=== PATIENT | female | born 1975 | race Caucasian/White ===

== ENCOUNTER 2018-03-23 10:22 | Emergency (ER) | payer BC ==
--- OUTSIDE RECORDS SUMMARY | 2018-03-23 10:51 | XMS REPORT ---
:1975 External Reference #:[id number] Author Organization [facility] Address [address] [place] [address] [place] [address] Phone [phone] Care Team Providers Name Role Phone Connie Yeboah MD Primary Care Physician Unavailable Payers Type Date Identification Numbers Payment Provider Subscriber Commercial Effective: Policy Number: [id number] [facility] Cristina Charles 2012 PayID: [id number] [address] [place] [address] Problems Date Description Provider Status Onset: 07/27/2014 Palpitations Blayne Dominguez M.D., [facility], Active [facility] Onset: 07/27/2014 Paroxysmal supraventricular Blayne Dominguez M.D., [facility], Active tachycardia [facility] Onset: 12/14/2014 Arthralgia of the ankle and/or Gabe Blayne Celis M.D. Active foot Onset: 12/14/2014 Sprain of ankle Gabe Blayne Celis M.D. Active Onset: 01/29/2015 Multiple joint pain Joel Garcia M.D. Active Onset: 01/29/2015 Rheumatoid arthritis Joel Garcia M.D. Active Onset: 01/29/2015 Immunologic Joel Garcia M.D. Active Onset: 03/22/2015 Taking medication Joel Garcia M.D. Active Onset: 06/01/2016 Irritable bowel syndrome Connie Yeboah M.D. Active Onset: 06/01/2016 Nonulcer dyspepsia Connie Yeboah M.D. 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 ) Cigarette Use Never Smoked Cigarettes ETOH Use consumes 3-4 glasses per week Smoking Patient is a former smoker social smoker in college, none now Exercise Type/Frequency Exercises regularly General Hx Text Allergies, Adverse Reactions, Alerts Date Description Reaction Status Severity Comments 11/13/2012 Penicillin hives active 11/13/2012 Sudafed migraine/tachycardia/co active ld sweats 11/13/2012 Shellfish-derived Products vomiting active Medications Medication Date Status Form Strength Qnty SIG Indications Ordering Provider Duloxetine Active Caps DR 30mg 60caps 1 by mouth F41.9 Hank HCL 018 Part every day TREVON Lopez for one week and then increase to two capsules daily. Systane Ultra Active Solution 0.4-0.3% 8ml 1 drop M35.01 Zsofia 017 each eye Osmel, twice [employer] daily for dry eyes Xeljanz XR Active Tablets ER 11mg 30tabs 1 by mouth M06.09 Zsofia 017 24HR every day Osmel, Start on [employer] 08/27/17 Ranitidine Active Tablets 150mg 60tabs one by K21.9 Hank HCL 017 mouth TREVON Lopez twice a day as needed Héctor Med Active 1units As Hank Sinus 016 directed TREVON Lopez Irrigation Kit Voltaren Active Gel 1% 100gm apply to M25.571 Zsofia 016 affected Osmel, area twice [employer] a day, as needed M25.551 M25.562 Fluticasone 09/23/2015 Active Suspension 50mcg/Act 48units instill Connie Propionate 1 sprays Edilia, into M.D. each nostril once daily Diltiazem HCL ER 06/17/2015 Active Caps ER 24HR 240mg 90caps 1 tab by Connie Coated Beads mouth Edilia, every M.D. day. Hydroxychloroquine 06/01/2015 Active Tablets 200mg 180tabs 2 tabs Z Zsofia Sulfate by mouth 7 Osmel, daily 9 [employer] . 8 9 9 M06.09 Gas Relief Active Capsules as needed Unknown Extra Strength Deblitane Active Tablets 0.35m take 1 tablet Unknown g by mouth once daily Daily Womens Active Tablets 1 daily Unknown Health Formula Vitamin D3 Active Chewtabs 1000U 2 by mouth Unknown Adult Gummies nit every day otc Buspirone HCL 03/07/2018 - Hx Tablets 5mg 60tab 1 by mouth F41.9 Hankjohny Lopez, 03/20/2018 s twice a day. [employer] May increase by 2.5mg bid every 3 days. Do not exceed 15mg bid. Prednisone 08/03/2017 - Hx Tablets 5mg 90tab Not Taking-- M06.0 Zsofia 01/03/2018 s take 4 tabs 9 Osmel, [employer] once dly for 1 wk 3 tabs once dly for 1 week 2 tabs once daily for 1 wk then 1 tab once dly Paroxetine HCL 05/09/2017 - Hx Tablets 40mg 30tab 1 by mouth F41.9 Hank Lopez, 06/19/2017 s every day [employer] F43.23 Simponi Aria 03/15/2017 - Hx Solution 50mg/4ML 4ml 2 mg/kg iv M06.09 Zsofia 08/03/2017 infusion weeks Osmel, [employer] 0 and 4, then every 8 weeks thereafter. Z79.899 Paroxetine HCL 12/29/2016 - Hx Tablets 20mg 30tabs 1 tablet F41.9 Hank John, 05/09/2017 daily [employer] F43.23 Hydroxyzine 12/29/2016 - Hx Capsules 25mg 60caps 1-2 caps by F41.9 Hank Pamoate 06/21/2017 mouth four John, [employer] times a day as needed for anxiety Lidocaine 12/29/2016 - Hx Ointment 5% 35.440gm apply to M89.8x8 Hank 03/07/2018 painful John, [employer] areas three times a day as needed. Doxycycline 12/12/2016 - Hx Capsules 100mg 20caps one tablet Hank Hyclate 12/22/2016 twice daily TREVON Lopez for 10 days. Paroxetine HCL 10/12/2016 - Hx Tablets 20mg 30tabs take 1 tab F41.9 Hank 12/29/2016 daily TREVON Lopez F43.23 Levofloxacin 08/16/2016 - Hx Tablets 500mg 10tabs one by mouth [facility], 08/26/2016 daily for 10 [employer] days Azithromycin 07/27/2016 - Hx Tablets 250mg 6tabs 2 tabs by Hank John, 07/27/2016 mouth every [employer] day x1 day, 1 tab by mouth every day x 4 days Doxycycline 07/27/2016 - Hx Tablets 100mg 2tabs take two [facility], clate 08/16/2016 tablets [employer] once. Prednisone 07/13/2016 - Hx Tablets 5mg 30tabs 2 by mouth M06.0 Zsofia 09/07/2016 every day 9 [facility], [facility] Z79.899 Humira Pen 07/13/2016 - Hx PNKT 40mg/0.8ML 2units inject 40 mg M06.09 Zsofia 03/15/2017 subcutaneously Osmel, every other week [employer] Z79.899 Omeprazole 05/18/2016 - Hx Capsules 20mg 30caps Not Taking R10.9 Mark, 11/27/2016 MD Reuben Omeprazole 02/21/2016 - Hx Capsules DR 40mg 30caps Discontinued R10.9 [place] 11/27/2016 TREVON Lopez Carafate 02/18/2016 - Hx Suspension 1GM/10 420ml 10 milliliters R10.9 [place] 05/25/2016 ML three times TREVON Lopez daily before meals Zantac 75 02/18/2016 - Hx Tablets 75mg 60tabs one tablet bid R10.9 [place] 05/25/2016 prn TREVON Lopez Omeprazole 02/11/2016 - Hx Capsules DR 20mg 30caps 1 by mouth R10.9 [place] 02/21/2016 once daily TREVON Lopez Escitalopram 10/13/2015 - Hx Tablets 20mg 90tabs take 1 tablet F41.9 Yves E. Oxalate 11/27/2016 by mouth every Iram, jim Wright Meclizine HCL 08/20/2015 - Hx Tablets 25mg 30tabs take one R42 Hank 09/22/2015 tablet every 6 Ojhn, [employer] hours as needed for dizziness Escitalopram 07/13/2015 - Hx Tablets 10mg 90tabs 1 by mouth F41.9 Connie Oxalate 10/13/2015 every day Kyle Yeboah Voltaren 06/01/2015 - Hx Gel 1% 1tubes apply to 719.46 Zsofia 07/13/2015 affected area Osmel, twice a day, [employer] as needed Methotrexate 03/22/2015 - Hx Tablets 2.5mg 30tabs 6 tabs 1x per 714.0 Joel 07/13/2015 week (not Endo, taking, M.D. stomach upset) Folic Acid 03/22/2015 - Hx Tablets 1mg 30tabs Not Taking M06.9 Zsofia 11/27/2016 Osmel, [employer] Diclofenac 01/29/2015 - Hx Tablets DR 75mg 60tabs 1 by mouth 719.49 Joel Sodium 03/22/2015 twice a day Kyle Garcia Metoprolol 10/29/2012 - Hx Tablets ER 25mg 180tabs 1 by mouth Blayne Succinate ER 12/13/2014 24HR twice a day Arabella Dominguez., [facility], [facility] Lexapro - Hx 10mg daily Unknown 07/16/2013 Flonase - Hx spray each Unknown 09/23/2015 nostril bid Lexapro - Hx Tablets 20mg 1 po qd Unknown 12/13/2014 Drospirenone-E - Hx Tablets 3-0.03 30tabs 1 by mouth Unknown thinyl 12/13/2014 mg every day Estradiol Advil - Hx Tablets 200mg as needed Unknown 07/13/2015 Cartia XT - Hx Caps ER 24HR 120mg 1 by mouth Unknown 06/17/2015 every day Clonazepam - Hx Tablets 0.5mg 1/2 to 1 tab Unknown 06/01/2015 by mouth twice a day as needed Escitalopram - Hx Tablets 20mg 1 by mouth Unknown Oxalate 07/13/2015 every day Deblitane - Hx Tablets 0.35mg once a day Unknown 12/29/2016 Nexium 24HR - Hx Capsules DR 20mg 1 by mouth Unknown 02/10/2016 every day prn Ranitidine HCL - Hx Tablets 150mg Take 1 Tablet Unknown 12/29/2016 Daily as Needed Medications Administered in Office Medication Date Status Form Strength Qnty SIG Indications Ordering Provider Felice(Adult)Radha Administered Injection Unknown ecified 001 Immunizations CPT Code Status Date Vaccine Lot # [id number] Given 06/21/2017 Influenza Virus Vaccine, Quadrivalent, Split, [id number] Preservative Free [id number] Given 07/24/2016 Influenza Virus Vaccine, Quadrivalent, Split [id number] Virus, [place] Use [id number] Given 07/13/2015 Tdap - Tetanus/Diptheria/Acellular Pertussis [id number] Given 08/25/2010 Tdap - Tetanus/Diptheria/Acellular Pertussis [id number] Refused 07/13/2015 Influenza Virus Vaccine, Quadrivalent, Split, Preservative Free Vital Signs Date Vital Result Comment 03/20/2018 Height 67.75 inches 5'7.75" Weight 154.00 lb Heart Rate 86 /min BP Systolic Sitting 117 mmHg BP Diastolic Sitting 82 mmHg O2 % BldC Oximetry 98 % BMI (Body Mass Index) 23.6 kg/m2 03/07/2018 Height 67.75 inches 5'7.75" Weight 157.25 lb Heart Rate 86 /min BP Systolic 109 mmHg BP Diastolic 73 mmHg Body Temperature 98.3 F O2 % BldC Oximetry 98 % BMI (Body Mass Index) 24.1 kg/m2 01/03/2018 Weight 162.00 lb Heart Rate 83 /min BP Systolic Sitting 110 mmHg BP Diastolic Sitting 78 mmHg O2 % BldC Oximetry 98 % 08/03/2017 Weight 169.00 lb Heart Rate 96 /min BP Systolic Sitting 118 mmHg BP Diastolic Sitting 82 mmHg O2 % BldC Oximetry 96 % 06/21/2017 Weight 169.00 lb Heart Rate 79 /min BP Systolic Sitting 138 mmHg pt a little stressed today BP Diastolic Sitting 98 mmHg pt a little stressed today Pain Level 4 O2 % BldC Oximetry 97 % 06/19/2017 Heart Rate 91 /min BP Systolic 118 mmHg BP Diastolic 80 mmHg Body Temperature 98.7 F O2 % BldC Oximetry 98 % 03/15/2017 Weight 175.38 lb Heart Rate 88 /min BP Systolic 120 mmHg BP Diastolic 80 mmHg O2 % BldC Oximetry 97 % 12/29/2016 Heart Rate 76 /min BP Systolic Sitting 124 mmHg BP Diastolic Sitting 80 mmHg Respiratory Rate 15 /min Body Temperature 98.3 F O2 % BldC Oximetry 98 % 11/27/2016 Heart Rate 82 /min BP Systolic Sitting 142 mmHg BP Diastolic Sitting 82 mmHg Pain Level 5 10/12/2016 Weight 174.00 lb Heart Rate 80 /min BP Systolic Sitting 120 mmHg BP Diastolic Sitting 88 mmHg O2 % BldC Oximetry 98 % 09/07/2016 Heart Rate 86 /min BP Systolic 124 mmHg BP Diastolic 80 mmHg O2 % BldC Oximetry 98 % 07/24/2016 Heart Rate 90 /min BP Systolic Sitting 122 mmHg BP Diastolic Sitting 70 mmHg Respiratory Rate 15 /min Body Temperature 97.9 F O2 % BldC Oximetry 98 % 07/13/2016 Weight 178.25 lb Heart Rate 42 /min BP Systolic Sitting 124 mmHg BP Diastolic Sitting 80 mmHg O2 % BldC Oximetry 98 % 05/25/2016 Heart Rate 81 /min BP Systolic Sitting 118 mmHg BP Diastolic Sitting 86 mmHg Pain Level 4 O2 % BldC Oximetry 98 % 02/18/2016 Heart Rate 81 /min BP Systolic Sitting 122 mmHg BP Diastolic Sitting 80 mmHg Body Temperature 98.4 F O2 % BldC Oximetry 98 % 02/11/2016 Height 67.5 inches 5'7.50" Heart Rate 78 /min BP Systolic Sitting 110 mmHg BP Diastolic Sitting 60 mmHg Respiratory Rate 15 /min Body Temperature 98.8 F O2 % BldC Oximetry 98 % 02/08/2016 Height 67.5 inches 5'7.50" Weight 178.50 lb without shoes Heart Rate 70 /min BP Systolic Sitting 126 mmHg LA reg cuff BP Diastolic Sitting 88 mmHg LA reg cuff BP Systolic Standing 122 mmHg LA reg cuff BP Diastolic Standing 94 mmHg LA reg cuff BMI (Body Mass Index) 27.5 kg/m2 Ejection Fraction 58% 08/07/12 echo 10/13/2015 Height 67.5 inches 5'7.50" Heart Rate 87 /min BP Systolic Sitting 120 mmHg BP Diastolic Sitting 82 mmHg O2 % BldC Oximetry 97 % 09/22/2015 Height 67.5 inches 5'7.50" Weight 178.75 lb Heart Rate 76 /min BP Systolic Sitting 128 mmHg BP Diastolic Sitting 82 mmHg Body Temperature 97.4 F O2 % BldC Oximetry 94 % BMI (Body Mass Index) 27.6 kg/m2 08/20/2015 Height 67.5 inches 5'7.50" Heart Rate 67 /min BP Systolic 138 mmHg P66 BP Diastolic 90 mmHg P66 BP Systolic Sitting 122 mmHg BP Diastolic Sitting 80 mmHg BP Systolic Standing 131 mmHg P70 BP Diastolic Standing 88 mmHg P70 BP Systolic Lying Down 138 mmHg P65 BP Diastolic Lying Down 92 mmHg P65 Body Temperature 97.4 F O2 % BldC Oximetry 98 % 07/13/2015 Height 67.5 inches 5'7.50" Weight 176.00 lb Heart Rate 92 /min BP Systolic Sitting 119 mmHg BP Diastolic Sitting 78 mmHg Body Temperature 97.8 F BMI (Body Mass Index) 27.2 kg/m2 06/01/2015 Height 67.5 inches 5'7.50" Weight 176.25 lb Heart Rate 76 /min BP Systolic Sitting 140 mmHg BP Diastolic Sitting 120 mmHg BP Systolic Recheck 130 mmHg BP Diastolic Recheck 100 mmHg Respiratory Rate 14 /min Pain Level 7 BMI (Body Mass Index) 27.2 kg/m2 03/22/2015 Height 67.5 inches 5'7.50" Weight 177.38 lb Heart Rate 72 /min BP Systolic Sitting 118 mmHg BP Diastolic Sitting 70 mmHg Respiratory Rate 14 /min Pain Level 6 BMI (Body Mass Index) 27.4 kg/m2 02/11/2015 Height 67.5 inches 5'7.50" Weight 177.00 lb Heart Rate 80 /min 86 BP Systolic Sitting 130 mmHg left arm, reg cuff BP Diastolic Sitting 94 mmHg left arm, reg cuff BP Systolic Standing 128 mmHg left arm, reg cuff BP Diastolic Standing 94 mmHg left arm, reg cuff Respiratory Rate 20 /min BMI (Body Mass Index) 27.3 kg/m2 Ejection Fraction 58% 08/07/12 01/29/2015 Height 67.5 inches 5'7.50" Weight 181.38 lb Heart Rate 80 /min BP Systolic Sitting 110 mmHg BP Diastolic Sitting 70 mmHg Pain Level 5 BMI (Body Mass Index) 28.0 kg/m2 12/14/2014 Height 68 inches 5'8" Weight 165.00 lb Heart Rate 78 /min BP Systolic 138 mmHg BP Diastolic 99 mmHg BMI (Body Mass Index) 25.1 kg/m2 07/27/2014 Height 68 inches 5'8" Weight 176.00 lb Heart Rate 72 /min 76 BP Systolic Sitting 122 mmHg left arm, reg cuff BP Diastolic Sitting 88 mmHg left arm, reg cuff BP Systolic Standing 118 mmHg left arm, reg cuff BP Diastolic Standing 88 mmHg left arm, reg cuff Respiratory Rate 20 /min BMI (Body Mass Index) 26.8 kg/m2 07/16/2013 Height 68 inches 5'8" Weight 167.00 lb Heart Rate 7484 /min BP Systolic Sitting 110 mmHg left arm, reg cuff BP Diastolic Sitting 70 mmHg left arm, reg cuff BP Systolic Standing 108 mmHg left arm, reg cuff BP Diastolic Standing 70 mmHg left arm, reg cuff Respiratory Rate 20 /min BMI (Body Mass Index) 25.4 kg/m2 Results Test Date Test Result H/L Range Note Comp Metabolic Panel 03/08/2018 Sodium 136 mmol/L Low 139-145 Potassium 3.7 mmol/L 3.5-5.0 Chloride 103 mmol/L 101-111 Co2 Carbon Dioxide 25 mmol/L 22-32 Anion Gap 8 mmol/L 2-11 Glucose 96 mg/dL 70-100 Blood Urea Nitrogen 11 mg/dL 6-24 Creatinine 0.73 mg/dL 0.51-0.95 BUN/Creatinine Ratio 15.1 8-20 Calcium 9.5 mg/dL 8.6-10.3 Total Protein 6.3 g/dL Low 6.4-8.9 Albumin 4.1 g/dL 3.2-5.2 Globulin 2.2 g/dL 2-4 Albumin/Globulin Ratio 1.9 1-3 Total Bilirubin 0.60 mg/dL 0.2-1.0 Alkaline Phosphatase 44 U/L 34-104 Alt 22 U/L 7-52 Ast 23 U/L 13-39 Egfr Non- 87.4 >60 Egfr 112.4 >60 1 Laboratory test finding 03/08/2018 Magnesium 1.9 mg/dL 1.9-2.7 TSH (Thyroid Stim Horm) 1.93 mcIU/mL 0.34-5.60 CBC Auto Diff 03/08/2018 White Blood Count 7.3 10^3/uL 3.5-10.8 Red Blood Count 4.41 10^6/uL 4.0-5.4 Hemoglobin 13.5 g/dL 12.0-16.0 Hematocrit 40 % 35-47 Mean Corpuscular Volume 92 fL 80-97 Mean Corpuscular Hemoglobin 31 pg 27-31 Mean Corpuscular HGB Conc 33 g/dL 31-36 Red Cell Distribution Width 14 % 10.5-15 Platelet Count 223 10^3/uL 150-450 Mean Platelet Volume 9.9 um3 7.4-10.4 Abs Neutrophils 4.6 10^3/uL 1.5-7.7 Abs Lymphocytes 1.7 10^3/uL 1.0-4.8 Abs Monocytes 0.8 10^3/uL 0-0.8 Abs Eosinophils 0.1 10^3/uL 0-0.6 Abs Basophils 0 10^3/uL 0-0.2 Abs Nucleated RBC 0 10^3/uL Granulocyte % 63.4 % 38-83 Lymphocyte % 23.6 % Low 25-47 Monocyte % 11.4 % High 0-7 Eosinophil % 0.9 % 0-6 Basophil % 0.7 % 0-2 Nucleated Red Blood Cells % 0.1 Laboratory test finding 03/08/2018 Lyme Disease Serology Negative Negative 2 Vitamin B12 1025 pg/mL High 180-914 3 CBC Auto Diff 01/01/2018 White Blood Count 6.3 10^3/uL 3.5-10.8 Red Blood Count 4.34 10^6/uL 4.0-5.4 Hemoglobin 13.4 g/dL 12.0-16.0 Hematocrit 41 % 35-47 Mean Corpuscular Volume 93 fL 80-97 Mean Corpuscular Hemoglobin 31 pg 27-31 Mean Corpuscular HGB Conc 33 g/dL 31-36 Red Cell Distribution Width 13 % 10.5-15 Platelet Count 226 10^3/uL 150-450 Mean Platelet Volume 9.2 um3 7.4-10.4 Abs Neutrophils 3.5 10^3/uL 1.5-7.7 Abs Lymphocytes 1.9 10^3/uL 1.0-4.8 Abs Monocytes 0.7 10^3/uL 0-0.8 Abs Eosinophils 0.1 10^3/uL 0-0.6 Abs Basophils 0.1 10^3/uL 0-0.2 Abs Nucleated RBC 0 10^3/uL Granulocyte % 56.0 % 38-83 Lymphocyte % 30.4 % 25-47 Monocyte % 11.1 % High 0-7 Eosinophil % 1.5 % 0-6 Basophil % 1.0 % 0-2 Nucleated Red Blood Cells % 0 Comp Metabolic Panel 01/01/2018 Sodium 138 mmol/L Low 139-145 Potassium 4.0 mmol/L 3.5-5.0 Chloride 105 mmol/L 101-111 Co2 Carbon Dioxide 25 mmol/L 22-32 Anion Gap 8 mmol/L 2-11 Glucose 92 mg/dL 70-100 Blood Urea Nitrogen 13 mg/dL 6-24 Creatinine 0.83 mg/dL 0.51-0.95 BUN/Creatinine Ratio 15.7 8-20 Calcium 9.3 mg/dL 8.6-10.3 Total Protein 6.6 g/dL 6.4-8.9 Albumin 4.2 g/dL 3.2-5.2 Globulin 2.4 g/dL 2-4 Albumin/Globulin Ratio 1.8 1-3 Total Bilirubin 0.60 mg/dL 0.2-1.0 Alkaline Phosphatase 41 U/L 34-104 Alt 20 U/L 7-52 Ast 20 U/L 13-39 Egfr Non- 75.4 >60 Egfr 97.0 >60 4 Laboratory test finding 01/01/2018 Erythrocyte Sed Rate 2 mm/Hr 0-14 C Reactive Protein < 1.00 mg/L < 5.00 5 Lipid Profile (Trig/Chol/HDL) 01/01/2018 Triglycerides 74 mg/dL 6 Cholesterol 171 mg/dL 7 HDL Cholesterol 76.1 mg/dL 8 LDL Cholesterol 80 mg/dL 9 Laboratory test finding 12/27/2017 Surgical Pathology SEE RESULT BELOW 10 Laboratory test finding 12/06/2017 Cytology SEE RESULT BELOW 11 CBC Auto Diff 06/27/2017 White Blood Count 6.5 10^3/uL 3.5-10.8 Red Blood Count 4.51 10^6/uL 4.0-5.4 Hemoglobin 13.6 g/dL 12.0-16.0 Hematocrit 41 % 35-47 Mean Corpuscular Volume 91 fL 80-97 Mean Corpuscular Hemoglobin 30 pg 27-31 Mean Corpuscular HGB Conc 33 g/dL 31-36 Red Cell Distribution Width 13 % 10.5-15 Platelet Count 224 10^3/uL 150-450 Mean Platelet Volume 9 um3 7.4-10.4 Abs Neutrophils 3.0 10^3/uL 1.5-7.7 Abs Lymphocytes 2.5 10^3/uL 1.0-4.8 Abs Monocytes 0.8 10^3/uL 0-0.8 Abs Eosinophils 0.2 10^3/uL 0-0.6 Abs Basophils 0 10^3/uL 0-0.2 Abs Nucleated RBC 0 10^3/uL Granulocyte % 46.9 % 38-83 Lymphocyte % 38.2 % 25-47 Monocyte % 11.9 % High 1-9 Eosinophil % 2.4 % 0-6 Basophil % 0.6 % 0-2 Nucleated Red Blood Cells % 0.1 Laboratory test finding 06/27/2017 Erythrocyte Sed Rate 10 mm/Hr 0-14 Comp Metabolic Panel 06/27/2017 Sodium 135 mmol/L 133-145 Potassium 3.8 mmol/L 3.5-5.0 Chloride 104 mmol/L 101-111 Co2 Carbon Dioxide 27 mmol/L 22-32 Anion Gap 4 mmol/L 2-11 Glucose 86 mg/dL 70-100 Blood Urea Nitrogen 12 mg/dL 6-24 Creatinine 0.67 mg/dL 0.51-0.95 BUN/Creatinine Ratio 17.9 8-20 Calcium 9.1 mg/dL 8.6-10.3 Total Protein 6.6 g/dL 6.4-8.9 Albumin 3.9 g/dL 3.2-5.2 Globulin 2.7 g/dL 2-4 Albumin/Globulin Ratio 1.4 1-3 Total Bilirubin 0.60 mg/dL 0.2-1.0 Alkaline Phosphatase 54 U/L 34-104 Alt 23 U/L 7-52 Ast 24 U/L 13-39 Egfr Non- 97.0 >60 Egfr 124.7 >60 12 Laboratory test finding 06/27/2017 C Reactive Protein 8.73 mg/L High < 5.00 13 Comp Metabolic Panel 05/02/2017 Sodium 135 mmol/L 133-145 Potassium 3.7 mmol/L 3.5-5.0 Chloride 104 mmol/L 101-111 Co2 Carbon Dioxide 25 mmol/L 22-32 Anion Gap 6 mmol/L 2-11 Glucose 107 mg/dL High 70-100 Blood Urea Nitrogen 13 mg/dL 6-24 Creatinine 0.73 mg/dL 0.51-0.95 BUN/Creatinine Ratio 17.8 8-20 Calcium 9.1 mg/dL 8.6-10.3 Total Protein 6.8 g/dL 6.4-8.9 Albumin 4.0 g/dL 3.2-5.2 Globulin 2.8 g/dL 2-4 Albumin/Globulin Ratio 1.4 1-3 Total Bilirubin 0.70 mg/dL 0.2-1.0 Alkaline Phosphatase 62 U/L 34-104 Alt 35 U/L 7-52 Ast 34 U/L 13-39 Egfr Non- 87.9 >60 Egfr 113.0 >60 14 Laboratory test finding 05/02/2017 C Reactive Protein 8.75 mg/L High < 5.00 15 CBC Auto Diff 05/02/2017 White Blood Count 7.9 10^3/uL 3.5-10.8 Red Blood Count 4.68 10^6/uL 4.0-5.4 Hemoglobin 14.3 g/dL 12.0-16.0 Hematocrit 43 % 35-47 Mean Corpuscular Volume 92 fL 80-97 Mean Corpuscular Hemoglobin 31 pg 27-31 Mean Corpuscular HGB Conc 33 g/dL 31-36 Red Cell Distribution Width 14 % 10.5-15 Platelet Count 216 10^3/uL 150-450 Mean Platelet Volume 10 um3 7.4-10.4 Abs Neutrophils 4.5 10^3/uL 1.5-7.7 Abs Lymphocytes 2.4 10^3/uL 1.0-4.8 Abs Monocytes 0.8 10^3/uL 0-0.8 Abs Eosinophils 0.2 10^3/uL 0-0.6 Abs Basophils 0 10^3/uL 0-0.2 Abs Nucleated RBC 0 10^3/uL Granulocyte % 57.7 % 38-83 Lymphocyte % 30.1 % 25-47 Monocyte % 9.5 % High 1-9 Eosinophil % 2.4 % 0-6 Basophil % 0.3 % 0-2 Nucleated Red Blood Cells % 0 Laboratory test finding 05/02/2017 Erythrocyte Sed Rate 9 mm/Hr 0-14 Comp Metabolic Panel 04/04/2017 Sodium 135 mmol/L 133-145 Potassium 3.6 mmol/L 3.5-5.0 Chloride 104 mmol/L 101-111 Co2 Carbon Dioxide 23 mmol/L 22-32 Anion Gap 8 mmol/L 2-11 Glucose 100 mg/dL 70-100 Blood Urea Nitrogen 14 mg/dL 6-24 Creatinine 0.68 mg/dL 0.51-0.95 BUN/Creatinine Ratio 20.6 High 8-20 Calcium 8.8 mg/dL 8.6-10.3 Total Protein 6.5 g/dL 6.4-8.9 Albumin 3.8 g/dL 3.2-5.2 Globulin 2.7 g/dL 2-4 Albumin/Globulin Ratio 1.4 1-3 Total Bilirubin 0.40 mg/dL 0.2-1.0 Alkaline Phosphatase 56 U/L 34-104 Alt 23 U/L 7-52 Ast 28 U/L 13-39 Egfr Non- 95.4 >60 Egfr 122.6 >60 16 Laboratory test finding 04/04/2017 C Reactive Protein 5.60 mg/L High < 5.00 17 CBC Auto Diff 04/04/2017 White Blood Count 7.9 10^3/uL 3.5-10.8 Red Blood Count 4.50 10^6/uL 4.0-5.4 Hemoglobin 13.8 g/dL 12.0-16.0 Hematocrit 42 % 35-47 Mean Corpuscular Volume 94 fL 80-97 Mean Corpuscular Hemoglobin 31 pg 27-31 Mean Corpuscular HGB Conc 33 g/dL 31-36 Red Cell Distribution Width 14 % 10.5-15 Platelet Count 236 10^3/uL 150-450 Mean Platelet Volume 10 um3 7.4-10.4 Abs Neutrophils 4.9 10^3/uL 1.5-7.7 Abs Lymphocytes 2.2 10^3/uL 1.0-4.8 Abs Monocytes 0.7 10^3/uL 0-0.8 Abs Eosinophils 0.1 10^3/uL 0-0.6 Abs Basophils 0.1 10^3/uL 0-0.2 Abs Nucleated RBC 0 10^3/uL Granulocyte % 61.1 % 38-83 Lymphocyte % 27.2 % 25-47 Monocyte % 9.2 % High 1-9 Eosinophil % 1.0 % 0-6 Basophil % 1.5 % 0-2 Nucleated Red Blood Cells % 0.1 Laboratory test finding 04/04/2017 Erythrocyte Sed Rate 10 mm/Hr 0-14 CBC Auto Diff 03/19/2017 White Blood Count 6.1 10^3/uL 3.5-10.8 Red Blood Count 4.56 10^6/uL 4.0-5.4 Hemoglobin 13.5 g/dL 12.0-16.0 Hematocrit 41 % 35-47 Mean Corpuscular Volume 90 fL 80-97 Mean Corpuscular Hemoglobin 30 pg 27-31 Mean Corpuscular HGB Conc 33 g/dL 31-36 Red Cell Distribution Width 13 % 10.5-15 Platelet Count 206 10^3/uL 150-450 Mean Platelet Volume 11 um3 High 7.4-10.4 Abs Neutrophils 3.4 10^3/uL 1.5-7.7 Abs Lymphocytes 1.9 10^3/uL 1.0-4.8 Abs Monocytes 0.6 10^3/uL 0-0.8 Abs Eosinophils 0.1 10^3/uL 0-0.6 Abs Basophils 0.1 10^3/uL 0-0.2 Abs Nucleated RBC 0 10^3/uL Granulocyte % 56.4 % 38-83 Lymphocyte % 30.5 % 25-47 Monocyte % 10.0 % High 1-9 Eosinophil % 1.4 % 0-6 Basophil % 1.7 % 0-2 Nucleated Red Blood Cells % 0.1 Laboratory test 03/19/2017 Erythrocyte Sed Rate 8 mm/Hr 0-14 finding Laboratory test 11/27/2016 C Reactive Protein 7.36 mg/L High < 5.00 18 , 19 finding Comp Metabolic Panel 11/27/2016 Sodium 137 mmol/L 133-145 18 Potassium 4.0 mmol/L 3.5-5.0 18 Chloride 101 mmol/L 101-111 18 Co2 Carbon Dioxide 27 mmol/L 22-32 18 Anion Gap 9 mmol/L 2-11 18 Glucose 80 mg/dL 70-100 18 Blood Urea Nitrogen 14 mg/dL 6-24 18 Creatinine 0.80 mg/dL 0.51-0.95 18 BUN/Creatinine Ratio 17.5 8-20 18 Calcium 9.4 mg/dL 8.6-10.3 18 Total Protein 7.1 g/dL 6.4-8.9 18 Albumin 4.4 g/dL 3.2-5.2 18 Globulin 2.7 g/dL 2-4 18 Albumin/Globulin Ratio 1.6 1-3 18 Total Bilirubin 0.60 mg/dL 0.2-1.0 18 Alkaline Phosphatase 68 U/L 34-104 18 Alt 28 U/L 7-52 18 Ast 32 U/L 13-39 18 Egfr Non- 79.0 >60 18 Egfr 101.7 >60 18, 20 CBC Auto Diff 11/27/2016 White Blood Count 10.3 10^3/uL 3.5-10.8 18 Red Blood Count 4.84 10^6/uL 4.0-5.4 18 Hemoglobin 14.3 g/dL 12.0-16.0 18 Hematocrit 44 % 35-47 18 Mean Corpuscular Volume 90 fL 80-97 18 Mean Corpuscular Hemoglobin 30 pg 27-31 18 Mean Corpuscular HGB Conc 33 g/dL 31-36 18 Red Cell Distribution Width 14 % 10.5-15 18 Platelet Count 244 10^3/uL 150-450 18 Mean Platelet Volume 10 um3 7.4-10.4 18 Abs Neutrophils 6.6 10^3/uL 1.5-7.7 18 Abs Lymphocytes 2.5 10^3/uL 1.0-4.8 18 Abs Monocytes 0.9 10^3/uL High 0-0.8 18 Abs Eosinophils 0.2 10^3/uL 0-0.6 18 Abs Basophils 0.1 10^3/uL 0-0.2 18 Abs Nucleated RBC 0 10^3/uL 18 Granulocyte % 63.9 % 38-83 18 Lymphocyte % 24.4 % Low 25-47 18 Monocyte % 8.8 % 1-9 18 Eosinophil % 2.0 % 0-6 18 Basophil % 0.9 % 0-2 18 Nucleated Red Blood Cells % 0 18 Laboratory test 11/27/2016 Erythrocyte Sed Rate 9 mm/Hr 0-14 18, 21 finding CMP Panel 09/07/2016 Albumin <pending> Alt - SGPT <pending> Calcium <pending> Carbon Dioxide <pending> Chloride <pending> Creatinine <pending> Glucose Serum <pending> Alkaline Phosphatase <pending> Potassium <pending> Protein Total <pending> Sodium <pending> Ast - Sgot <pending> BUN - Urea Nitrogen <pending> Laboratory test finding 09/07/2016 CRP C-Reactive Protein <pending> Esr Sedimentation Rate <pending> CBC W/Auto Diff 09/07/2016 White Blood Count <pending> RBC Red Blood Count <pending> Hemoglobin <pending> Hematocrit <pending> MCV (Corpuscular Volume) <pending> MCH (Corpuscular Hemoglobin) <pending> MCHC (Corpuscular Hemog Conc) <pending> RDW <pending> Platelet Count <pending> MPV <pending> Neutrophils <pending> Bands <pending> Lymphocytes <pending> Monocytes <pending> Eosinophils <pending> Basophils <pending> Absolute Basophil <pending> Absolute Eosinophil <pending> Absolute Lymphocyte <pending> Absolute Monocytes <pending> Absolute Neutrophils <pending> Quantiferon Gold TB 07/13/2016 M tuberculosis by Quantiferon Negative Negative 22 TB Ag minus Nil Result 0.03 IU/mL TB Mitogen minus Nil Result > 10.00 IU/mL TB Nil Result 0.01 IU/mL 23 Hepatitis Acute Panel 07/13/2016 Hepatitis C Antibody Nonreactive Nonreactive Hepatitis A AB Igm Nonreactive Nonreactive Hepatitis B Core AB Igm Nonreactive Nonreactive Hepatitis B Surface Ag Nonreactive Nonreactive Laboratory test 07/13/2016 C Reactive Protein 17.75 mg/L High < 5.00 24 finding Laboratory test 05/24/2016 Clotest SEE RESULT 25, 26 finding BELOW Laboratory test 05/24/2016 Surgical Interface SEE RESULT 27, 28 finding Order BELOW CBC W/Auto Diff 05/23/2016 White Blood Count 9.4 10^3/uL 3.5-10.8 Red Blood Count 4.36 10^6/uL 4.0-5.4 Hemoglobin 12.8 g/dL 12.0-16.0 Hematocrit 39 % 35-47 Mean Corpuscular Volume 90 fL 80-97 Mean Corpuscular Hemoglobin 29 pg 27-31 Mean Corpuscular HGB Conc 33 g/dL 31-36 Red Cell Distribution Width 14 % 10.5-15 Platelet Count 249 10^3/uL 150-450 Mean Platelet Volume 10 um3 7.4-10.4 Abs Neutrophils 5.9 10^3/uL 1.5-7.7 Abs Lymphocytes 2.5 10^3/uL 1.0-4.8 Abs Monocytes 0.8 10^3/uL 0-0.8 Abs Eosinophils 0.2 10^3/uL 0-0.6 Abs Basophils 0.1 10^3/uL 0-0.2 Abs Nucleated RBC 0 10^3/uL Granulocyte % 62.8 % 38-83 Lymphocyte % 26.3 % 25-47 Monocyte % 8.5 % 1-9 Eosinophil % 1.7 % 0-6 Basophil % 0.7 % 0-2 Nucleated Red Blood Cells % 0 CMP Panel 05/23/2016 Sodium 136 mmol/L 133-145 Potassium 4.0 mmol/L 3.5-5.0 Chloride 103 mmol/L 101-111 Co2 Carbon Dioxide 26 mmol/L 22-32 Anion Gap 7 mmol/L 2-11 Glucose 92 mg/dL 70-100 Blood Urea Nitrogen 15 mg/dL 6-24 Creatinine 0.85 mg/dL 0.51-0.95 BUN/Creatinine Ratio 17.6 8-20 Calcium 8.8 mg/dL 8.6-10.3 Total Protein 6.2 g/dL Low 6.4-8.9 Albumin 3.9 g/dL 3.2-5.2 Globulin 2.3 g/dL 2-4 Albumin/Globulin Ratio 1.7 1-3 Total Bilirubin 0.30 mg/dL 0.2-1.0 Alkaline Phosphatase 59 U/L 34-104 Alt 18 U/L 7-52 Ast 22 U/L 13-39 Egfr Non- 74.1 >60 Egfr 95.3 >60 29 Laboratory test finding 05/23/2016 Erythrocyte Sed Rate 12 mm/Hr 0-14 C Reactive Protein 11.66 mg/L High < 5.00 30 Laboratory test finding 02/14/2016 Helico Pylori Antigen- Negative Negative 31 Stool CBC Auto Diff 02/11/2016 White Blood Count 9.8 10^3/uL 3.5-10.8 Red Blood Count 4.67 10^6/uL 4.0-5.4 Hemoglobin 13.6 g/dL 12.0-16.0 Hematocrit 43 % 35-47 Mean Corpuscular Volume 92 fL 80-97 Mean Corpuscular Hemoglobin 29 pg 27-31 Mean Corpuscular HGB Conc 32 g/dL 31-36 Red Cell Distribution Width 14 % 10.5-15 Platelet Count 241 10^3/uL 150-450 Mean Platelet Volume 10 um3 7.4-10.4 Abs Neutrophils 6.7 10^3/uL 1.5-7.7 Abs Lymphocytes 2.1 10^3/uL 1.0-4.8 Abs Monocytes 0.8 10^3/uL 0-0.8 Abs Eosinophils 0.1 10^3/uL 0-0.6 Abs Basophils 0.1 10^3/uL 0-0.2 Abs Nucleated RBC 0.03 10^3/uL Granulocyte % 68.2 % 38-83 Lymphocyte % 21.6 % Low 25-47 Monocyte % 7.7 % 1-9 Eosinophil % 1.3 % 0-6 Basophil % 1.2 % 0-2 Nucleated Red Blood Cells % 0.3 Comp Metabolic Panel 02/11/2016 Sodium 136 mmol/L 133-145 Potassium 4.0 mmol/L 3.5-5.0 Chloride 103 mmol/L 101-111 Co2 Carbon Dioxide 22 mmol/L 22-32 Anion Gap 11 mmol/L 2-11 Glucose 90 mg/dL 70-100 Blood Urea Nitrogen 20 mg/dL 6-24 Creatinine 0.76 mg/dL 0.51-0.95 BUN/Creatinine Ratio 26.3 High 8-20 Calcium 9.3 mg/dL 8.6-10.3 Total Protein 7.2 g/dL 6.4-8.9 Albumin 4.7 g/dL 3.2-5.2 Globulin 2.5 g/dL 2-4 Albumin/Globulin Ratio 1.9 1-3 Total Bilirubin 0.30 mg/dL 0.2-1.0 Alkaline Phosphatase 62 U/L 34-104 Alt 16 U/L 7-52 Ast 18 U/L 13-39 Egfr Non- 84.3 >60 Egfr 108.4 >60 32 Comp Metabolic Panel 08/20/2015 Sodium 136 mmol/L 133-145 Potassium 4.0 mmol/L 3.5-5.0 Chloride 103 mmol/L 101-111 Co2 Carbon Dioxide 26 mmol/L 22-32 Anion Gap 7 mmol/L 2-11 Blood Urea Nitrogen 13 mg/dL 6-24 Total Protein 6.9 g/dL 6.4-8.9 Albumin 4.2 g/dL 3.2-5.2 Globulin 2.7 g/dL 2-4 Albumin/Globulin Ratio 1.6 1-3 Total Bilirubin 0.40 mg/dL 0.2-1.0 Alkaline Phosphatase 64 U/L 34-104 Alt 13 U/L 7-52 Ast 16 U/L 13-39 Glucose 84 mg/dL 70-100 Creatinine 0.73 mg/dL 0.51-0.95 BUN/Creatinine Ratio 17.8 8-20 Calcium 9.5 mg/dL 8.6-10.3 Egfr Non- 88.8 >60 Egfr 114.1 >60 33 CBC Auto Diff 08/20/2015 White Blood Count 7.5 10^3/uL 4.8-10.8 Red Blood Count 4.64 10^6/uL 4.0-5.4 Hemoglobin 13.3 g/dL 12.0-16.0 Hematocrit 42 % 35-47 Mean Corpuscular Volume 91 fL 80-97 Mean Corpuscular Hemoglobin 29 pg 27-31 Mean Corpuscular HGB Conc 32 g/dL 31-36 Red Cell Distribution Width 14 % 10.5-15 Platelet Count 249 10^3/uL 150-450 Mean Platelet Volume 9 um3 7.4-10.4 Abs Neutrophils 4.7 10^3/uL 1.5-7.7 Abs Lymphocytes 1.9 10^3/uL 1.0-4.8 Abs Monocytes 0.7 10^3/uL 0-0.8 Abs Eosinophils 0.1 10^3/uL 0-0.6 Abs Basophils 0.1 10^3/uL 0-0.2 Abs Nucleated RBC 0 10^3/uL Granulocyte % 62.5 % 38-83 Lymphocyte % 25.2 % 25-47 Monocyte % 9.2 % High 1-9 Eosinophil % 1.8 % 0-6 Basophil % 1.3 % 0-2 Nucleated Red Blood Cells % 0 Laboratory test finding 07/14/2015 TSH (Thyroid Stim Horm) 1.44 ?IU/mL 0.34-5.60 Lipid Profile 07/14/2015 Triglycerides 132 mg/dL 34 (Trig/Chol/HDL) Cholesterol 216 mg/dL 35 HDL Cholesterol 79.8 mg/dL 36 LDL Cholesterol 110 mg/dL 37 CBC Auto Diff 04/21/2015 White Blood Count 7.1 10^3/uL 4.8-10.8 Red Blood Count 4.37 10^6/uL 4.0-5.4 Hemoglobin 12.8 g/dL 12.0-16.0 Hematocrit 40 % 35-47 Mean Corpuscular Volume 91 fL 80-97 Mean Corpuscular Hemoglobin 29 pg 27-31 Mean Corpuscular HGB Conc 32 g/dL 31-36 Red Cell Distribution Width 15 % 10.5-15 Platelet Count 250 10^3/uL 150-450 Mean Platelet Volume 10 um3 7.4-10.4 Abs Neutrophils 3.7 10^3/uL 1.5-7.7 Abs Lymphocytes 2.3 10^3/uL 1.0-4.8 Abs Monocytes 0.7 10^3/uL 0-0.8 Abs Eosinophils 0.2 10^3/uL 0-0.6 Abs Basophils 0.1 10^3/uL 0-0.2 Abs Nucleated RBC 0 10^3/uL Granulocyte % 52.9 % 38-83 Lymphocyte % 32.9 % 25-47 Monocyte % 10.5 % High 1-9 Eosinophil % 2.9 % 0-6 Basophil % 0.8 % 0-2 Nucleated Red Blood Cells % 0 Comp Metabolic Panel 04/21/2015 Sodium 137 mmol/L 133-145 Potassium 4.2 mmol/L 3.5-5.0 Chloride 104 mmol/L 101-111 Co2 Carbon Dioxide 27 mmol/L 22-32 Anion Gap 6 mmol/L 2-11 Glucose 97 mg/dL 70-100 Blood Urea Nitrogen 17 mg/dL 6-24 Creatinine 0.73 mg/dL 0.51-0.95 BUN/Creatinine Ratio 23.3 High 8-20 Calcium 8.8 mg/dL 8.6-10.3 Total Protein 6.3 g/dL Low 6.4-8.9 Albumin 4.0 g/dL 3.2-5.2 Globulin 2.3 g/dL 2-4 Albumin/Globulin Ratio 1.7 1-3 Total Bilirubin 0.40 mg/dL 0.2-1.0 Alkaline Phosphatase 73 U/L 34-104 Alt 14 U/L 7-52 Ast 16 U/L 13-39 Egfr Non- 88.8 >60 Egfr 114.1 >60 38 Laboratory test finding 04/21/2015 C Reactive Protein 9.94 mg/L High < 5.00 39 Erythrocyte Sed Rate 12 mm/Hr 0-14 CBC Auto Diff 02/01/2015 White Blood Count 6.6 10^3/uL 4.8-10.8 Red Blood Count 4.35 10^6/uL 4.0-5.4 Hemoglobin 13.1 g/dL 12.0-16.0 Hematocrit 39 % 35-47 Mean Corpuscular Volume 91 fL 80-97 Mean Corpuscular Hemoglobin 30 pg 27-31 Mean Corpuscular HGB Conc 33 g/dL 31-36 Red Cell Distribution Width 15 % 10.5-15 Platelet Count 251 10^3/uL 150-450 Mean Platelet Volume 10 um3 7.4-10.4 Abs Neutrophils 3.7 10^3/uL 1.5-7.7 Abs Lymphocytes 2.0 10^3/uL 1.0-4.8 Abs Monocytes 0.7 10^3/uL 0-0.8 Abs Eosinophils 0.2 10^3/uL 0-0.6 Abs Basophils 0.1 10^3/uL 0-0.2 Abs Nucleated RBC 0 10^3/uL Granulocyte % 55.3 % 38-83 Lymphocyte % 30.6 % 25-47 Monocyte % 9.8 % High 1-9 Eosinophil % 3.1 % 0-6 Basophil % 1.2 % 0-2 Nucleated Red Blood Cells % 0 Comp Metabolic Panel 02/01/2015 Sodium 135 mmol/L 133-145 Potassium 4.0 mmol/L 3.5-5.0 Chloride 102 mmol/L 101-111 Co2 Carbon Dioxide 27 mmol/L 22-32 Anion Gap 6 mmol/L 2-11 Glucose 79 mg/dL 70-100 Blood Urea Nitrogen 13 mg/dL 6-24 Creatinine 0.72 mg/dL 0.51-0.95 BUN/Creatinine Ratio 18.1 8-20 Calcium 9.5 mg/dL 8.6-10.3 Total Protein 6.6 g/dL 6.4-8.9 Albumin 4.2 g/dL 3.2-5.2 Globulin 2.4 g/dL 2-4 Albumin/Globulin Ratio 1.8 1-3 Total Bilirubin 0.50 mg/dL 0.2-1.0 Alkaline Phosphatase 66 U/L 34-104 Alt 27 U/L 7-52 Ast 25 U/L 13-39 Egfr Non- 90.2 >60 Egfr 116.0 >60 40 Laboratory test finding 02/01/2015 C Reactive Protein 10.84 mg/L High &lt ; 5.00 41 Erythrocyte Sed Rate 11 mm/Hr 0-14 Hla B27 02/01/2015 Hla B27 Negative 42 Hla B27 Interp See Comment 43 Laboratory test finding 02/01/2015 Rheumatoid Factor <15 IU/mL <15 44 Cyclic Citrullinated Pept IgG <15.6 U 45 CBC Auto Diff 12/18/2014 White Blood Count 8.5 10^3/uL 4.8-10.8 Red Blood Count 4.43 10^6/uL 4.0-5.4 Hemoglobin 12.9 g/dL 12.0-16.0 Hematocrit 39 % 35-47 Mean Corpuscular Volume 88 fL 80-97 Mean Corpuscular Hemoglobin 29 pg 27-31 Mean Corpuscular HGB Conc 33 g/dL 31-36 Red Cell Distribution Width 15 % 10.5-15 Platelet Count 253 10^3/uL 150-450 Mean Platelet Volume 9 um3 7.4-10.4 Abs Neutrophils 5.2 10^3/uL 1.5-7.7 Abs Lymphocytes 2.3 10^3/uL 1.0-4.8 Abs Monocytes 0.7 10^3/uL 0-0.8 Abs Eosinophils 0.2 10^3/uL 0-0.6 Abs Basophils 0.1 10^3/uL 0-0.2 Abs Nucleated RBC 0 10^3/uL Granulocyte % 61.8 % 38-83 Lymphocyte % 27.0 % 25-47 Monocyte % 8.3 % 1-9 Eosinophil % 1.9 % 0-6 Basophil % 1.0 % 0-2 Nucleated Red Blood Cells % 0 Lyme Western Blot 12/18/2014 Lyme Disease IgG Ab WB Negative Negative Lyme Disease IgG Bands Present p41, kDa Lyme Disease IgM Ab WB Negative Negative Lyme Disease IgM Bands Present No bands detecte <SEE NOTE> kDa 46 Lyme Disease Interpretation See Comment 47 Laboratory test finding 12/18/2014 C Reactive Protein 17.08 mg/L High &lt ; 5.00 48 Erythrocyte Sed Rate 14 mm/Hr 0-14 Rheumatoid Factor <15 IU/mL <15 49 Lyme Disease Serology Negative Negative 50 1 Because ethnic data is not always readily available, this report includes an eGFR for both -Americans and non- Americans. The National Kidney Disease Education Program (NKDEP) does not endorse the use of the MDRD equation for patients that are not between the ages of 18 and 70, are , have extremes of body size, muscle mass, or nutritional status, or are non- or non-. According to the National Kidney Foundation, irrespective of diagnosis, the stage of the disease is based on the level of kidney function: Stage Description GFR(mL/min/1.73 m(2)) 1 Kidney damage with normal or decreased GFR 90 2 Kidney damage with mild decrease in GFR 60-89 3 Moderate decrease in GFR 30-59 4 Severe decrease in GFR 15-29 5 Kidney failure <15 (or dialysis) 2 No evidence of antibodies to B. burgdorferi detected. False negative results may occur in recently infected patients (<=2 weeks) due to low or undetectable antibody levels to B. burgdorferi. If recent exposure is suspected, a second sample should be collected and tested in 2-4 weeks. Test Performed by: [facility] [address] [place] [address] 3 Normal Range 180 to 914 Indeterminate Range 145 to 180 Deficient Range <145 4 Because ethnic data is not always readily available, this report includes an eGFR for both -Americans and non- Americans. The National Kidney Disease Education Program (NKDEP) does not endorse the use of the MDRD equation for patients that are not between the ages of 18 and 70, are , have extremes of body size, muscle mass, or nutritional status, or are non- or non-. According to the National Kidney Foundation, irrespective of diagnosis, the stage of the disease is based on the level of kidney function: Stage Description GFR(mL/min/1.73 m(2)) 1 Kidney damage with normal or decreased GFR 90 2 Kidney damage with mild decrease in GFR 60-89 3 Moderate decrease in GFR 30-59 4 Severe decrease in GFR 15-29 5 Kidney failure <15 (or dialysis) 5 Acute inflammation: >10.00 6 Desirable: <150 Borderline High: 150-199 High: 200-499 Very High: >500 7 Desirable: <200 Borderline High: 200-239 High: >239 8 Low: <40 Desirable: 40-60 High: >60 9 Desirable: <100 Near Optimal: 100-129 Borderline High: 130-159 High: 160-189 Very High: >189 10 SEE RESULT BELOW Name: CRISTINA CHARLES : [address]: Farzana Gayle MD Acct: [id number] Unit: [id number] AGE: 42 Location: [facility] Re12/27/17 SEX: F Status: REG REF SPEC: [id number] WAGNER: 12/27/17-[address] [facility] [address]: Farzana Gayle MD REQ: [id number] RECD: 12/27/170572 STATUS: MATY GARCIA DR: Connie Yeboah MD _ ORDERED: LEVEL 4, IMMUNO-FIRST COMMENTS: [id number] FINAL DIAGNOSIS Uterus, endocervix, curettage: -- Detached fragment of dysplastic squamous mucosa with HPV-related viral cytopathic effect; see comment. COMMENT: A small focus of transversely-oriented dysplastic squamous epithelium is seen on the initial levels of sectioning examined. A p16 immunohistochemical staining, with appropriately reacting controls, was performed and this fragment is cut through in the p16 stained section. Grading of the dysplasia of this focus is limited by the orientation and lack of the focus in the immunostained slide; however, it is compatible with low-grade dysplasia. PRE-OPERATIVE DIAGNOSIS Low grade squamous intraepithelial lesion, positive human papilloma virus GROSS DESCRIPTION The specimen is received in formalin labeled, ECC, and consists of a brush with an adherent 1.1 x 0.7 x 0.4 cm aggregate of pelaez-fountain to blood-tinged mucus. The specimen is filtered and submitted entirely in one cassette. Signed (signature on file) Tessie Green MD 1240 END OF REPORT DEPARTMENT OF PATHOLOGY, [address] [place] [address] Bo Ng M.D. Director [facility] # [id number] 11 SEE RESULT BELOW Name: STEVECRISTINA Santoyo : [address]: Farzana Gayle MD Acct: [id number] Unit: [id number] AGE: 42 Location: [facility] Re12/06/17 SEX: F Status: REG REF SPEC: [id number] WAGNER: 12/06/[address] [facility] [address]: Farzana Gayle MD REQ: [id number] RECD: 12/06/17 STATUS: MATY GARCIA DR: Connie Yeboah MD _ ORDERED: TP IMAGE ANAL, EXTERNAL RELATIONS MANAGER PHYS INTERP, HPV/Thin Prep COMMENTS: [id number] EPITHELIAL CELL ABNORMALITIES Low grade squamous intraepithelial lesion (LSIL) A. Ectocervical/Endocervical Specimen Adequacy: Satisfactory of evaluation Transformation zone component identified Patient Information: HPV: High risk HPV RNA testing regardless of pap results. Actual Specimen Date: 12/06/17 LMP If Unknown: unknown Date of Last Specimen: 09/21/15 ?: N Post Menopausal?: N Hysterectomy?: N Date Time Test Result Flag (u) Normal Range 12/06/17901 @ HPV RNA POSITIVE A Negative @ @ The high-risk HPV types detected by the assay include: 16, @ 18, 31, 33, 35, 39, 45, 51, 52, 56, 58, 59, 66, and 68. Signed (signature on file) Tessie Green MD 11/25 1522 This Pap test was evaluated with the assistance of the [employer] The[employer] Test Imaging System. Due to cytologic findings at the printmaker microscope, comprehensive manual rescreening by a Footwear Sales Coordinator may be required. The Pap Smear is a screening test designed to aid in the detection of premalignant and malignant conditions of the uterine cervix. It is not a diagnostic procedure and should not be used as the sole means of detecting cervical cancer. Both false- positive and false- negative reports do occur. Depending on your risk status, a Pap smear should be obtained and evaluated every 1-3 years. END OF REPORT DEPARTMENT OF PATHOLOGY, [address] [place] [address] Bo Ng M.D. Director [facility] # [id number] 12 Because ethnic data is not always readily available, this report includes an eGFR for both -Americans and non- Americans. The National Kidney Disease Education Program (NKDEP) does not endorse the use of the MDRD equation for patients that are not between the ages of 18 and 70, are , have extremes of body size, muscle mass, or nutritional status, or are non- or non-. According to the National Kidney Foundation, irrespective of diagnosis, the stage of the disease is based on the level of kidney function: Stage Description GFR(mL/min/1.73 m(2)) 1 Kidney damage with normal or decreased GFR 90 2 Kidney damage with mild decrease in GFR 60-89 3 Moderate decrease in GFR 30-59 4 Severe decrease in GFR 15-29 5 Kidney failure <15 (or dialysis) 13 Acute inflammation: >10.00 14 Because ethnic data is not always readily available, this report includes an eGFR for both -Americans and non- Americans. The National Kidney Disease Education Program (NKDEP) does not endorse the use of the MDRD equation for patients that are not between the ages of 18 and 70, are , have extremes of body size, muscle mass, or nutritional status, or are non- or non-. According to the National Kidney Foundation, irrespective of diagnosis, the stage of the disease is based on the level of kidney function: Stage Description GFR(mL/min/1.73 m(2)) 1 Kidney damage with normal or decreased GFR 90 2 Kidney damage with mild decrease in GFR 60-89 3 Moderate decrease in GFR 30-59 4 Severe decrease in GFR 15-29 5 Kidney failure <15 (or dialysis) 15 Acute inflammation: >10.00 16 Because ethnic data is not always readily available, this report includes an eGFR for both -Americans and non- Americans. The National Kidney Disease Education Program (NKDEP) does not endorse the use of the MDRD equation for patients that are not between the ages of 18 and 70, are , have extremes of body size, muscle mass, or nutritional status, or are non- or non-. According to the National Kidney Foundation, irrespective of diagnosis, the stage of the disease is based on the level of kidney function: Stage Description GFR(mL/min/1.73 m(2)) 1 Kidney damage with normal or decreased GFR 90 2 Kidney damage with mild decrease in GFR 60-89 3 Moderate decrease in GFR 30-59 4 Severe decrease in GFR 15-29 5 Kidney failure <15 (or dialysis) 17 Acute inflammation: >10.00 18 STANDING ORDER VALID 09/07/16-03/08/17 19 Acute inflammation: >10.00 20 Because ethnic data is not always readily available, this report includes an eGFR for both -Americans and non- Americans. The National Kidney Disease Education Program (NKDEP) does not endorse the use of the MDRD equation for patients that are not between the ages of 18 and 70, are , have extremes of body size, muscle mass, or nutritional status, or are non- or non-. According to the National Kidney Foundation, irrespective of diagnosis, the stage of the disease is based on the level of kidney function: Stage Description GFR(mL/min/1.73 m(2)) 1 Kidney damage with normal or decreased GFR 90 2 Kidney damage with mild decrease in GFR 60-89 3 Moderate decrease in GFR 30-59 4 Severe decrease in GFR 15-29 5 Kidney failure <15 (or dialysis) 21 STANDING ORDER VALID 09/07/16-03/08/17 22 No interferon-gamma response to M. tuberculosis antigens was detected. Infection with M. tuberculosis is unlikely. A negative result alone does not exclude infection with M. tuberculosis. For detailed information regarding test interpretation see: www.[employer]test-catalog/ Clinical+and+Interpretive/50292 23 Test Performed by: [place] [address] Aircraft Engine Cylinder Mechanic: Venkatesh Cruz II, M.D., Ph.D. 24 Acute inflammation: >10.00 25 [id number] 26 SEE RESULT BELOW Name: CRISTINA CHARLES : [address]: Reuben Flores MD Acct: [id number] Unit: [id number] AGE: 40 Location: [facility] Re05/24/16 SEX: F Status: REG REF SPEC: [id number] WAGNER: 05/24/161442 [facility] DR: Reuben Flores MD REQ: [id number] RECD: 05/24/16 STATUS: PETEY GARCIA DR: Connie Yeboah MD _ SOURCE: [facility]: ORDERED: Clotest COMMENTS: [id number] Procedure Result Reported Site Clotest Final 05/25/16716 ML Clotest Negative * ML - MAIN LAB (PSC1) . END OF REPORT * ML=Testing performed at Main Lab DEPARTMENT OF PATHOLOGY, [address] [place] [address] Bo Ng M.D. Director [facility] # [id number] 27 [id number] 28 SEE RESULT BELOW Name: CRISTINA CHARLES : [address]: Reuben Flores MD Acct: [id number] Unit: [id number] AGE: 40 Location: [facility] Re05/24/16 SEX: F Status: REG REF SPEC: [id number] WAGNER: 05/24/16-[address] [facility] [address]: Reuben Flores MD REQ: [id number] RECD: 05/24/16-161 STATUS: MATY GARCIA DR: Connie Yeboah MD _ ORDERED: LEVEL IV COMMENTS: [id number] FINAL DIAGNOSIS Duodenum, third portion, biopsy: -- Benign small intestinal mucosa with no significant pathologic abnormalities. -- No evidence of villous blunting or increased intraepithelial lymphocytes. CLINICAL HISTORY Off omeprazole - 3-4 days, acid reflux resumed POST-OPERATIVE DIAGNOSIS Larynx - normal; esophagus - normal, EG 40 snug; stomach - normal, CLOtest; duodenum - normal x35. Conclusions/Plan: Normal EGD; dysphagia - globus; atypical chest pain; gastroesophageal reflux disease GROSS DESCRIPTION The specimen is received in formalin labeled, Biopsy Third Portion Duodenum, and consists of three pelaez-brown irregular to polypoid soft tissue fragments measuring 0.4 x 0.2 x 0.2 cm, 0.5 x 0.2 x 0.2 cm and 0.8 x 0.3 x 0.1 cm, which is entirely submitted in one cassette. Signed (signature on file) Tessie Green MD 1545 END OF REPORT * ML=Testing performed at [facility] DEPARTMENT OF PATHOLOGY, [address] [place] [address] Bo Ng M.D. Director [facility] # [id number] 29 Because ethnic data is not always readily available, this report includes an eGFR for both -Americans and non- Americans. The National Kidney Disease Education Program (NKDEP) does not endorse the use of the MDRD equation for patients that are not between the ages of 18 and 70, are , have extremes of body size, muscle mass, or nutritional status, or are non- or non-. According to the National Kidney Foundation, irrespective of diagnosis, the stage of the disease is based on the level of kidney function: Stage Description GFR(mL/min/1.73 m(2)) 1 Kidney damage with normal or decreased GFR 90 2 Kidney damage with mild decrease in GFR 60-89 3 Moderate decrease in GFR 30-59 4 Severe decrease in GFR 15-29 5 Kidney failure <15 (or dialysis) 30 Acute inflammation: >10.00 31 Test Performed by: [address] [address] Aircraft Engine Cylinder Mechanic: Venkatesh Cruz II, M.D., Ph.D. 32 Because ethnic data is not always readily available, this report includes an eGFR for both -Americans and non- Americans. The National Kidney Disease Education Program (NKDEP) does not endorse the use of the MDRD equation for patients that are not between the ages of 18 and 70, are , have extremes of body size, muscle mass, or nutritional status, or are non- or non-. According to the National Kidney Foundation, irrespective of diagnosis, the stage of the disease is based on the level of kidney function: Stage Description GFR(mL/min/1.73 m(2)) 1 Kidney damage with normal or decreased GFR 90 2 Kidney damage with mild decrease in GFR 60-89 3 Moderate decrease in GFR 30-59 4 Severe decrease in GFR 15-29 5 Kidney failure <15 (or dialysis) 33 Because ethnic data is not always readily available, this report includes an eGFR for both -Americans and non- Americans. The National Kidney Disease Education Program (NKDEP) does not endorse the use of the MDRD equation for patients that are not between the ages of 18 and 70, are , have extremes of body size, muscle mass, or nutritional status, or are non- or non-. According to the National Kidney Foundation, irrespective of diagnosis, the stage of the disease is based on the level of kidney function: Stage Description GFR(mL/min/1.73 m(2)) 1 Kidney damage with normal or decreased GFR 90 2 Kidney damage with mild decrease in GFR 60-89 3 Moderate decrease in GFR 30-59 4 Severe decrease in GFR 15-29 5 Kidney failure <15 (or dialysis) 34 Desirable <150 Borderline high 150-199 High 200-499 Very High >500 35 Desirable <200 Borderline high 200-239 High >239 36 Low <40 Desirable: 40-60 High: >60 37 Desirable: <100 mg/dL Near Optimal: 100-129 mg/dL Borderline High: 130-159 mg/dL High: 160-189 mg/dL Very High: >189 mg/dL 38 Because ethnic data is not always readily available, this report includes an eGFR for both -Americans and non- Americans. The National Kidney Disease Education Program (NKDEP) does not endorse the use of the MDRD equation for patients that are not between the ages of 18 and 70, are , have extremes of body size, muscle mass, or nutritional status, or are non- or non-. According to the National Kidney Foundation, irrespective of diagnosis, the stage of the disease is based on the level of kidney function: Stage Description GFR(mL/min/1.73 m(2)) 1 Kidney damage with normal or decreased GFR 90 2 Kidney damage with mild decrease in GFR 60-89 3 Moderate decrease in GFR 30-59 4 Severe decrease in GFR 15-29 5 Kidney failure <15 (or dialysis) 39 Acute inflammation: >10.00 40 Because ethnic data is not always readily available, this report includes an eGFR for both -Americans and non- Americans. The National Kidney Disease Education Program (NKDEP) does not endorse the use of the MDRD equation for patients that are not between the ages of 18 and 70, are , have extremes of body size, muscle mass, or nutritional status, or are non- or non-. According to the National Kidney Foundation, irrespective of diagnosis, the stage of the disease is based on the level of kidney function: Stage Description GFR(mL/min/1.73 m(2)) 1 Kidney damage with normal or decreased GFR 90 2 Kidney damage with mild decrease in GFR 60-89 3 Moderate decrease in GFR 30-59 4 Severe decrease in GFR 15-29 5 Kidney failure <15 (or dialysis) 41 Acute inflammation: >10.00 42 REFERENCE VALUE Not Applicable 43 RESULT: HLA-B27 antigen was not detected. ADDITIONAL INFORMATION Method: Flow Cytometry Performing Laboratory CLIA# [id number] Test Performed by: [place] [address] [employer]: Venkatesh Cruz II, M.D., Ph.D. 44 Test Performed by: [address] [address] [employer]: Venkatesh Cruz II, M.D., Ph.D. 45 REFERENCE VALUE <20.0 (Negative) Test Performed by: [place] [address] [employer]: Venkatesh Cruz II, M.D., Ph.D. 46 No bands detected 47 Specific serologic response to B. burgdorferi infection is not detected, but cannot rule out early infection during which low or undetectable antibody levels to B. burgdorferi may be present. If clinically indicated, a new serum specimen should be submitted in 7-14 days. ADDITIONAL INFORMATION CDC criteria require >=5 bands for IgG or >=2 bands for IgM for the Immunoblot to be considered positive. Bands (e.g.,p41) may be detected in patients without Lyme disease, and patterns not meeting the CDC criteria should be interpreted with caution. Immunoblot should be ordered only on specimens that are positive or equivocal by a FDA-licensed Lyme disease antibody screening test (e.g., EIA). Test Performed by: [place] [address] [employer]: Venkatesh Cruz II, M.D., Ph.D. 48 Acute inflammation: >10.00 49 Test Performed by: [address] [address] [employer]: Venkatesh Cruz II, M.D., Ph.D. 50 Serologic response to B. burgdorferi infection is not detected, but cannot rule out early infection during which low or undetectable antibody levels to B. burgdorferi may be present. If clinically indicated, a new serum specimen should be submitted in 7-14 days. Test Performed by: [address] [address] [employer]: Venkatesh Cruz II, M.D., Ph.D. Procedures Date CPT Code Description Status 03/17/2018 80203 Holter Monitor Review (24 hr)dr perez & stephanyp Completed only 03/11/2018 84871 ECG Monitor/Recording W/Visual Superimposition Scanning Completed 03/07/2018 61207 EKG Tracing & Interpretation Completed 05/11/2017 Mammogram Completed 02/11/2015 49984 EKG Tracing & Interpretation Completed 07/27/2014 42888 EKG Tracing & Interpretation Completed 07/16/2013 38111 EKG Tracing & Interpretation Completed Encounters Type Date Location Provider CPT E/M Dx Office Visit 01/03/2018 Rheumatology Services CHATO BishopP 38671 M06.09 8:30a Of [facility] M35.01 Z79.899 R87.612 Office Visit 08/03/2017 1:30p Rheumatology Services Jalil Bolivar [employer]ER 05949 M06.09 Of [facility] M35.01 Z79.899 Z13.220 Office Visit 06/21/2017 8:00a [facility] Of Jalil Bolivar, 05581 M06.09 [facility] [employer] Z79.899 Z23 Office Visit 06/19/2017 11:40a [facility] [place] [address] F41.9 [place] K21.9 Office Visit 03/15/2017 8:00a [facility] Of Jalil Bolivar 18032 M06.09 [facility] [employer] Z79.899 Office Visit 12/29/2016 9:00a [facility] [place] [address] F41.9 [place] M89.8x8 Office Visit 11/27/2016 8:00a [facility] Jalil Bolivar [employer] 67329 M06.09 - [place] F43.23 M70.62 Z79.899 Office Visit 10/12/2016 9:00a [facility] [place] [address] F41.9 [place] Office Visit 09/07/2016 8:30a [facility] [address]135 [facility]06.09 [facility] M70.62 Z79.899 Office Visit 07/24/2016 4:00p [facility] [place] [address] J01.90 [place] Z23 Office Visit 07/13/2016 8:30a [facility] Of Jalil Bolivar 14354 M06.09 [facility] [employer] M25.571 M25.551 M25.562 Z79.899 Office Visit 05/25/2016 9:00a [facility] Of Jalil Bolivar, 71878 M06.09 [facility] Z79.899 Office Visit 02/18/2016 9:40a [facility] [place] [address] R10.9 [place] R10.13 Office Visit 02/11/2016 2:20p [facility] [place] [address] R04.2 [place] R10.9 Office Visit 02/08/2016 2:20p [facility] Of Blayne Dominguez M.D., 53697 I47.1 [facility] Office Visit 10/13/2015 1:40p [facility] - Connie Yeboah, [address]10 F41.9 [place] M.DLala Office Visit 09/22/2015 2:40p [facility] - Connie Yeboah 60739 F41.9 [place] M.DLala Office Visit 08/20/2015 10:00a [facility] [place] [address] R42 [place] F41.9 Office Visit 07/13/2015 1:10p [facility] Connie Yeboah M.D. 63995 F41.9 - [place] Z13.220 Z23 Z79.899 Office Visit 06/01/2015 1:30p [facility] Of Jalil BolivarFREDDY 53942 714.0 [facility] V58.69 719.46 Office Visit 03/22/2015 1:40p [facility] Services Joel Garcia M.D. 13960 714.0 Of [facility] 795.79 V58.69 Office Visit 02/11/2015 1:00p [facility] Of Blayne Dominguez M.D., 16117 785.1 [facility] 427.0 Office Visit 01/29/2015 11:00a Rheumatology Services Joel Garcia 33812 719.49 Of Chidi Wright 714.0 795.79 Office Visit 12/14/2014 10:45a [facility] Of Gabe Celis, 04396 719.47 Summer Wright 845.00 714.0 Office Visit 07/27/2014 3:40p [facility] Blayne Dominguez M.D., 46629 785.1 [facility] AT [facility] 427.0 Office Visit 07/16/2013 2:45p [facility] Suraj Dominguez M.D., 84009 785.1 [facility] AT [facility] Office Visit 01/13/2013 8:15a [facility] Suraj Dominguez M.D., 36871 427.0 [facility] AT [facility] 785.1 Office Visit 11/13/2012 4:00p [facility] Suraj Dominguez M.D., 98789 427.0 [facility] Plan of Care Future Appointment(s):04/17/2018 8:40 am - Hank Lopez NP at [facility] Internal Medicine [facility]03/22/2018 2:45 pm - Tomás Smith LCSW at [facility]04/01/2018 8:30 am - FREDDY Bishop at [facility] Of [facility]03/20/2018 - Hank Lopez NPF41.9 Anxiety disorder, unspecifiedNew Medication:Duloxetine HCL 30 mgComments:I have prescribed the Duloxetine that we discussed.Start taking one capsule once daily for a week and then increase to two capsules daily.Follow up:4 weeks (Change 04/05)
--- OUTSIDE RECORDS SUMMARY | 2018-03-23 10:53 | XMS REPORT ---
:1975 External Reference #:[id number] Author Organization [facility] Address [address] [address] Phone [phone] Care Team Providers Name Role Phone Connie Yeboah MD Primary Care Physician Unavailable Payers Type Date Identification Numbers Payment Provider Subscriber Commercial Effective: Policy Number: [id number] [facility] Cristina Charles 2012 PayID: [id number] [address] [place] [address] Problems Date Description Provider Status Onset: 07/27/2014 Palpitations Blayne Dominguez M.D., [facility], Active [facility] Onset: 07/27/2014 Paroxysmal supraventricular Blayne Dominguez M.D., [facility], Active tachycardia [facility] Onset: 12/14/2014 Arthralgia of [...] With Boyfriend 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 May increase by 2.5mg bid every 3 days. Do not exceed 15mg bid. Systane Ultra Active Solution 0.4-0.3% 8ml 1 drop M35.01 Zsofia 017 each eye Osmel, twice BOX SHOOK PATCHER daily for dry eyes Xeljanz XR Active Tablets ER 11mg 30tabs 1 by mouth M06.09 Zsofia 017 24HR every day Osmel, Start on BOX SHOOK PATCHER 08/27/17 Ranitidine Active Tablets 150mg 60tabs one by K21.9 Hank HCL 017 mouth TREVON Lopez twice a day as needed Héctor Med Active 1units As Hank Sinus 016 directed John PEARL TECHNICIAN Irrigation Kit Voltaren Active Gel 1% 100gm apply to M25.571 Zsofia 016 affected Osmel, area twice BOX SHOOK PATCHER a day, as needed M25.551 M25.562 Fluticasone 09/23/2015 Active Suspension 50mcg/Act 48units instill Connie Propionate 1 sprays Yeboah, into M.D. each nostril once daily Diltiazem HCL ER 06/17/2015 Active Caps ER 24HR 240mg 90caps 1 tab by Connie Coated Beads mouth Yeboah, every M.D. day. Hydroxychloroquine 06/01/2015 Active Tablets 200mg 180tabs 2 tabs Z Zsofia Sulfate by mouth 7 Osmel, daily 9 BOX SHOOK PATCHER . 8 9 9 M06.09 Gas Relief Extra Active Capsules as needed Unknown Strength Deblitane Active Tablets 0.35m take 1 Unknown g tablet by mouth once daily Daily Womens Active Tablets 1 daily Unknown Health Formula Vitamin D3 Adult Active Chewtabs 1000U 2 by mouth Unknown Gummies nit every day otc Prednisone 08/03/2017 - Hx Tablets 5mg 90tab Not M06.0 Zsofia 01/03/2018 s Taking-- 9 Osmel, BOX SHOOK PATCHER take 4 tabs once dly for 1 wk 3 tabs once dly for 1 week 2 tabs once daily for 1 wk then 1 tab once dly Paroxetine HCL 05/09/2017 - Hx Tablets 40mg 30tab 1 by mouth F41.9 Hank Lopez, 06/19/2017 s every day PEARL TECHNICIAN F43.23 Simponi Aria 03/15/2017 - Hx Solution 50mg/4ML 4ml 2 mg/kg iv M06.09 Zsofia 08/03/2017 infusion weeks FREDDY Bolivar 0 and 4, then every 8 weeks thereafter. Z79.899 Paroxetine HCL 12/29/2016 - Hx Tablets 20mg 30tabs 1 tablet F41.9 Hank John, 05/09/2017 daily PEARL TECHNICIAN F43.23 Hydroxyzine 12/29/2016 - Hx Capsules 25mg 60caps 1-2 caps by F41.9 Hank Pamoate 06/21/2017 mouth four John, PEARL TECHNICIAN times a day as needed for anxiety Lidocaine 12/29/2016 - Hx Ointment 5% 35.440gm apply to M89.8x8 Hank 03/07/2018 painful John, PEARL TECHNICIAN areas three times a day as needed. Doxycycline 12/12/2016 - Hx Capsules 100mg 20caps one tablet Hank Hyclate 12/22/2016 twice daily John, PEARL TECHNICIAN for 10 days. Paroxetine HCL 10/12/2016 - Hx Tablets 20mg 30tabs take 1 tab F41.9 Hank 12/29/2016 daily John, PEARL TECHNICIAN F43.23 Levofloxacin 08/16/2016 - Hx Tablets 500mg 10tabs one by mouth Hank Lopez, 08/26/2016 daily for 10 PEARL TECHNICIAN days Azithromycin 07/27/2016 - Hx Tablets 250mg 6tabs 2 tabs by Hankjohny Lopez, 07/27/2016 mouth every PEARL TECHNICIAN day x1 day, 1 tab by mouth every day x 4 days Doxycycline 07/27/2016 - Hx Tablets 100mg 2tabs take two Hank John Hyclate 08/16/2016 tablets PEARL TECHNICIAN once. Prednisone 07/13/2016 - Hx Tablets 5mg 30tabs 2 by mouth M06.0 Zsofia 09/07/2016 every day 9 Osmel, [facility] Z79.899 Humira Pen 07/13/2016 - Hx PNKT 40mg/0.8ML 2units inject 40 mg M06.09 Zsofia 03/15/2017 subcutaneously Osmel, every other week BOX SHOOK PATCHER Z79.899 Omeprazole 05/18/2016 - Hx Capsules 20mg 30caps Not Taking R10.9 Mark, 11/27/2016 MD Reuben Omeprazole 02/21/2016 - Hx Capsules 40mg 30caps Discontinued R10.9 Hank 11/27/2016 John, TREVON Carafate 02/18/2016 - Hx Suspension 1GM/10 420ml 10 milliliters R10.9 [place] 05/25/2016 ML three times John, PEARL TECHNICIAN daily before meals Zantac 75 02/18/2016 - Hx Tablets 75mg 60tabs one tablet bid R10.9 [place] 05/25/2016 prn John, PEARL TECHNICIAN Omeprazole 02/11/2016 - Hx Capsules 20mg 30caps 1 by mouth R10.9 Hank 02/21/2016 once daily John, PEARL TECHNICIAN Escitalopram 10/13/2015 - Hx Tablets 20mg 90tabs take 1 tablet F41.9 Yves E. Oxalate 11/27/2016 by mouth every Iram, jim Wright Meclizine HCL 08/20/2015 - Hx Tablets 25mg 30tabs take one R42 Hank 09/22/2015 tablet every 6 John, PEARL TECHNICIAN hours as needed for dizziness Escitalopram 07/13/2015 - Hx Tablets 10mg 90tabs 1 by mouth F41.9 Connie Oxalate 10/13/2015 every day Arabella Yeboah. Voltaren 06/01/2015 - Hx Gel 1% 1tubes apply to 719.46 Zsofia 07/13/2015 affected area Osmel, twice a day, BOX SHOOK PATCHER as needed Methotrexate 03/22/2015 - Hx Tablets 2.5mg 30tabs 6 tabs 1x per 714.0 Joel 07/13/2015 week (not Endo, taking, MLalaD. stomach upset) Folic Acid 03/22/2015 - Hx Tablets 1mg 30tabs Not Taking M06.9 Zsofia 11/27/2016 Osmel, BOX SHOOK PATCHER Diclofenac 01/29/2015 - Hx Tablets DR 75mg 60tabs 1 by mouth 719.49 Joel Sodium 03/22/2015 twice a day Kyle Garcia Metoprolol 10/29/2012 - Hx Tablets ER 25mg 180tabs 1 by mouth Blayne Succinate ER 12/13/2014 24HR twice a day Arabella Dominguez., [facility], [facility] Lexapro - Hx 10mg daily Unknown 07/16/2013 [...] Form Strength Qnty SIG Indications Ordering Provider Td(Adult),Radha Administered Injection Unknown ecified 001 Immunizations CPT Code Status Date Vaccine Lot # [id number] Given 06/21/2017 Influenza Virus Vaccine, Quadrivalent, Split, 572kt Preservative Free 48908 Given 07/24/2016 Influenza Virus Vaccine, Quadrivalent, Split [id number] Virus, Im Use 44287 Given 07/13/2015 Tdap - Tetanus/Diptheria/Acellular Pertussis [id number] 41317 Given 08/25/2010 Tdap - Tetanus/Diptheria/Acellular Pertussis 54680 Refused 07/13/2015 Influenza Virus Vaccine, Quadrivalent, Split, Preservative Free Vital Signs Date Vital Result Comment 03/07/2018 Height 67.75 inches 5'7.75" Weight 157.25 [...] Test Date Test Result H/L Range Note Order 03/11/2018 Holter Monitor <pending> Comp Metabolic Panel 03/08/2018 Sodium 136 mmol/L [...] tested in 2-4 weeks. Test Performed by: [facility] [address] [place] [address] 3 Normal Range 180 to 914 Indeterminate [...] [address]: Farzana Gayle MD Acct: [id number] Unit: [id number] AGE: 42 Location: [facility] Re12/27/17 SEX: F Status: REG REF SPEC: [id number] [place]: 12/27/17-[address] [facility] [address]: Farzana Gayle MD REQ: [id number] RECD: 12/27/17-1541 STATUS: MATY GARCIA DR: Connie Yeboah MD _ ORDERED: LEVEL 4, IMMUNO-FIRST COMMENTS: [id number] FINAL DIAGNOSIS Uterus, endocervix, curettage: -- Detached [...] Signed (signature on file) Tessie Green MD 1241 END OF REPORT DEPARTMENT OF PATHOLOGY, [address] [place] [address] Bo Ng M.D. Director [facility] # [id number] 11 SEE RESULT BELOW Name: STEVECRISTINA Santoyo : [address]: Farzana Gayle MD Acct: [id number] Unit: [id number] AGE: 42 Location: [facility] Re12/06/17 SEX: F Status: REG REF SPEC: [id number] WAGNER: 12/06/17-[address] [facility] [address]: Farzana Gayle MD REQ: [id number] RECD: 12/06/17120 STATUS: MATY GARCIA DR: Connie Yeboah MD _ ORDERED: TP IMAGE ANAL, SNOW REMOVER PHYS INTERP, HPV/Thin Prep COMMENTS: [id number] EPITHELIAL CELL ABNORMALITIES Low grade squamous intraepithelial lesion (LSIL) A. Ectocervical/Endocervical Specimen Adequacy: Satisfactory of evaluation Transformation zone component identified Patient Information: HPV: High risk HPV RNA testing regardless of pap results. Actual Specimen Date: 12/06/17 LMP If Unknown: unknown Date of Last Specimen: 09/21/15 ?: N Post Menopausal?: N Hysterectomy?: N Date Time Test Result Flag (u) Normal Range 12/06/17 09 @ HPV RNA POSITIVE A Negative @ @ The high-risk HPV types detected by the assay include: 16, @ 18, 31, 33, 35, 39, 45, 51, 52, 56, 58, 59, 66, and 68. Signed (signature on file) Tessie Green MD 11/25 1522 This Pap test was evaluated with the assistance of the RentelligencePrep Test Imaging System. Due to cytologic findings at the sales analyst microscope, comprehensive manual rescreening by a Cinema Or Theatre Manager may be required. The Pap Smear is [...] years. END OF REPORT DEPARTMENT OF PATHOLOGY, [address] [place] [address] Bo Ng M.D. Director [facility] # [id number] 12 Because ethnic data is not always [...] For detailed information regarding test interpretation see: [email or web address]/ Clinical+[email or web address] 23 Test Performed by: [place] [address] Manager Access: Venkatesh Cruz II, M.D., Ph.D. 24 Acute inflammation: >10.00 25 [id number] 26 SEE RESULT BELOW Name: CRISTINA CHARLES : [address]: Reuben Flores MD Acct: [id number] Unit: [id number] AGE: 40 Location: [facility] Re05/24/16 SEX: F Status: REG REF SPEC: [id number] WAGNER: 05/24/16-[address] [facility] [address]: Reuben Flores MD REQ: [id number] RECD: 05/24/16-171 STATUS: COMP [facility] DR: Connie Yeboah MD _ SOURCE: GAS ANTRUM SPDESC: ORDERED: Clotest COMMENTS: [id number] Procedure Result Reported Site Clotest Final 05/25/16716 ML Clotest Negative * ML - MAIN LAB ([facility]) . END OF REPORT * ML=Testing performed at Main Lab DEPARTMENT OF PATHOLOGY, [address] [place] [address] Bo Ng M.D. Director [facility] # [id number] 27 [id number] 28 SEE RESULT BELOW Name: CRISTINA CHARLES : [address]: Reuben Flores MD Acct: [id number] Unit: [id number] AGE: 40 Location: [facility] Re05/24/16 SEX: F Status: REG REF SPEC: [id number] WAGNER: 05/24/16-[address] [facility] [address]: Reuben Flores MD REQ: [id number] RECD: 05/24/16 STATUS: MATY GARCIA DR: Connie Yeboah MD _ ORDERED: LEVEL IV COMMENTS: [id number] FINAL DIAGNOSIS Duodenum, third portion, biopsy: -- [...] performed at Main Lab DEPARTMENT OF PATHOLOGY, [address] [place] [address] Bo Ng M.D. Director [facility] # [id number] 29 Because ethnic data is not always [...] Acute inflammation: >10.00 31 Test Performed by: [place] [address] Manager Access: Venkatesh Cruz II, M.D., Ph.D. 32 Because [...] INFORMATION Method: Flow Cytometry Performing Laboratory CLIA# [id number] Test Performed by: [place] [address] Manager Access: Venkatesh Cruz II, M.D., Ph.D. 44 Test Performed by: [place] [address] Manager Access: Venkatesh Cruz II, M.D., Ph.D. 45 REFERENCE VALUE <20.0 (Negative) Test Performed by: [place] [address] Manager Access: Venkatesh Cruz II, M.D., Ph.D. 46 No [...] screening test (e.g., EIA). Test Performed by: [place] [address] Manager Access: Venkatesh Cruz II, M.D., Ph.D. 48 Acute inflammation: >10.00 49 Test Performed by: [place] [address] Manager Access: Venkatesh Cruz II, M.D., Ph.D. 50 Serologic response to B. burgdorferi infection is not detected, but cannot rule out early infection during which low or undetectable antibody levels to B. burgdorferi may be present. If clinically indicated, a new serum specimen should be submitted in 7-14 days. Test Performed by: [place] [address] Manager Access: Venkatesh Cruz II, M.D., Ph.D. Procedures Date CPT Code Description Status 03/11/2018 22442 ECG Monitor/Recording W/Visual Superimposition Scanning Completed 03/07/2018 97425 EKG Tracing & Interpretation Completed 05/11/2017 Mammogram Completed 02/11/2015 42248 EKG Tracing & Interpretation Completed 07/27/2014 78713 EKG Tracing & Interpretation Completed 07/16/2013 30741 EKG Tracing & Interpretation Completed Encounters Type Date Location Provider CPT E/M Dx Office Visit 01/03/2018 Rheumatology Services FREDDY Bishop [address]70 M06.09 8:30a Of [facility] M35.01 Z79.899 R87.612 Office Visit 08/03/2017 1:30p Rheumatology Services CHATO BishopP 42375 M06.09 Of [facility] M35.01 Z79.899 Z13.220 Office Visit 06/21/2017 8:00a [facility]ology Services Of Jalil Bolivar, [address]3442 M06.09 [facility] BOX SHOOK PATCHER Z79.899 Z23 Office Visit 06/19/2017 11:40a [facility] [place] [address] F41.9 [place] K21.9 Office Visit 03/15/2017 8:00a [facility] Of Jalil Bolivar, [address]106 M06.09 [facility] BOX SHOOK PATCHER Z79.899 Office Visit 12/29/2016 9:00a [facility] [place] [address] F41.9 [place] M89.8x8 Office Visit 11/27/2016 8:00a [facility] Jalil Bolivar BOX SHOOK PATCHER [address] M06.09 - [place] F43.23 M70.62 Z79.899 Office Visit 10/12/2016 9:00a [facility] [place] [address] F41.9 [place] Office Visit 09/07/2016 8:30a [facility] Services Of Jalil Bolivar, [address]4513 M06.09 [facility] BOX SHOOK PATCHER M70.62 Z79.899 Office Visit 07/24/2016 4:00p [facility] [place] [address] J01.90 [place] Z23 Office Visit 07/13/2016 8:30a [facility] [place], [address] M06.09 [facility] M25.571 M25.551 M25.562 Z79.899 Office Visit 05/25/2016 9:00a [facility] Services Of Jalil Bolivar [address]80 M06.09 [facility] BOX SHOOK PATCHER Z79.899 Office Visit 02/18/2016 9:40a [facility] [place] [address] R10.9 [place] R10.13 Office Visit 02/11/2016 2:20p [facility] [place] [address] R04.2 [place] R10.9 Office Visit 02/08/2016 2:20p [facility] Of Blayne Dominguez M.D., 90900 I47.1 [facility] AT [facility] Office Visit 10/13/2015 1:40p [facility] - Connie Yeboah, [address]48 F41.9 [place] M.D. Office Visit 09/22/2015 2:40p [facility] - Connie Yeboah, 41511 F41.9 [place] M.D. Office Visit 08/20/2015 10:00a [facility] - Hank Lopez, PEARL TECHNICIAN [address] R42 [place] F41.9 Office Visit 07/13/2015 1:10p [facility] Connie Yeboah M.D. 75295 F41.9 - [place] Z13.220 Z23 Z79.899 Office Visit 06/01/2015 1:30p [facility] Services Of FREDDY Bishop [address]909 714.0 [facility] V58.69 719.46 Office Visit 03/22/2015 1:40p Rheumatology Services Joel Garcia M.D. 11261 714.0 Of [facility] 795.79 V58.69 Office Visit 02/11/2015 1:00p [facility] Of Blayne Dominguez M.D., 91796 785.1 [facility] AT [facility] 427.0 Office Visit 01/29/2015 11:00a Rheumatology Services Joel Garcia, 49494 719.49 Of Chidi Wright 714.0 795.79 Office Visit 12/14/2014 10:45a [facility] Services Of Gabe Celis, 60097 719.47 [facility] 845.00 714.0 Office Visit 07/27/2014 3:40p [facility] Of Blayne Dominguez M.D., 70575 785.1 [facility] AT [facility] 427.0 Office Visit 07/16/2013 2:45p [facility] Suraj Dominguez M.D., 28930 785.1 [facility] AT [facility] Office Visit 01/13/2013 8:15a [facility] Suraj Dominguez M.D., 79982 427.0 [facility] AT [facility] 785.1 Office Visit 11/13/2012 4:00p [facility] Of Blayne Dominguez M.D., 45072 427.0 [facility], [facility] Plan of Care Future Appointment(s):04/05/2018 8:40 am - Hank Lopez NP at [facility] Internal Medicine - Oejmqrmez13/05/2018 4:00 pm - Im Nurse Holter Monitor at [facility] Internal [facility]03/22/2018 2:45 pm - Tomás Smith LCSW at [facility] Internal [facility] - Acbfejnga66/25/2018 8:30 am - FREDDY Bishop at [facility] Of [facility]/31/2018 - Hank Lopez NPF41.9 Anxiety disorder, unspecifiedNew Medication:Buspirone HCL 5 mgComments:I have prescribed the Buspar that we discussed. Start taking 5mg twice daily. If tolerated after three days you can increase by 2.5 mg twice daily every 3 days. Do not exceed 15mg twice daily until we meet again. Continue seeing Tomás Smith.Follow up:1 qwvauS64.2 PalpitationsComments:For your palpitations I am ordering some labs and would like you to do a holter monitor. This is a device that you will wear for 24 hours that will monitor your hearts activity. If you have palpitations that are not subsiding or are associated with singificant blurred vision, dizziness, shortness of breath, nausea, or chest pain seek medical attention.R53.83 Other fatigue
--- OUTSIDE RECORDS SUMMARY | 2018-03-23 10:54 | XMS REPORT ---
:1975 External Reference #:[id number] Author Organization [facility] Address [address] [address] Phone [phone] Care Team Providers Name Role Phone Connie Yeboah MD Primary Care Physician Unavailable Payers Type Date Identification Numbers Payment Provider Subscriber Commercial Effective: Policy Number: [id number] [facility] Cristina Charles 2012 PayID: [id number] [address] [place] [address] Problems Date Description Provider Status Onset: 07/27/2014 Palpitations Blayne Dominguez M.D., [facility], Active [facility]SCAI Onset: 07/27/2014 Paroxysmal supraventricular Blayne Dominguez M.D., [facility], Active tachycardia [facility]SCAI Onset: 12/14/2014 Arthralgia of [...] With Boyfriend 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 [...] M35.01 Zsofia 017 each eye Osmel, twice RETAIL ANALYST daily for dry eyes Xeljanz XR Active Tablets ER 11mg 30tabs 1 by mouth M06.09 Zsofia 017 24HR every day Osmel, Start on RETAIL ANALYST 08/27/17 Ranitidine Active Tablets 150mg 60tabs one by K21.9 Hank HCL 017 mouth TREVON Lopez twice a day as needed Héctor Med Active 1units As Hank Sinus 016 directed John ENRICHMENT TEACHER Irrigation Kit Voltaren Active Gel 1% 100gm apply to M25.571 Zsofia 016 affected Osmel, area twice RETAIL ANALYST a day, as needed M25.551 M25.562 Fluticasone 09/23/2015 Active Suspension 50mcg/Act 48units instill Connie Propionate 1 sprays Yeboah, into M.D. each nostril once daily Diltiazem HCL ER 06/17/2015 Active Caps ER 24HR 240mg 90caps 1 tab by Connie Coated Beads mouth Yeboah, every M.D. day. Hydroxychloroquine 06/01/2015 Active Tablets 200mg 180tabs 2 tabs Z Zsofia Sulfate by mouth 7 Osmel, daily 9 RETAIL ANALYST . 8 9 9 M06.09 Gas Relief [...] M06.0 Zsofia 01/03/2018 s Taking-- 9 Osmel, RETAIL ANALYST take 4 tabs once dly for 1 wk 3 tabs once dly for 1 week 2 tabs once daily for 1 wk then 1 tab once dly Paroxetine HCL 05/09/2017 - Hx Tablets 40mg 30tab 1 by mouth F41.9 Hank Lopez, 06/19/2017 s every day ENRICHMENT TEACHER F43.23 Simponi Aria 03/15/2017 - Hx Solution 50mg/4ML 4ml 2 mg/kg iv M06.09 Zsofia 08/03/2017 infusion weeks FREDDY Bolivar 0 and 4, then every 8 weeks thereafter. Z79.899 Paroxetine HCL 12/29/2016 - Hx Tablets 20mg 30tabs 1 tablet F41.9 Hank John, 05/09/2017 daily ENRICHMENT TEACHER F43.23 Hydroxyzine 12/29/2016 - Hx Capsules 25mg 60caps 1-2 caps by F41.9 Hank Pamoate 06/21/2017 mouth four John, ENRICHMENT TEACHER times a day as needed for anxiety Lidocaine 12/29/2016 - Hx Ointment 5% 35.440gm apply to M89.8x8 Hank 03/07/2018 painful John, ENRICHMENT TEACHER areas three times a day as needed. Doxycycline 12/12/2016 - Hx Capsules 100mg 20caps one tablet Hank Hyclate 12/22/2016 twice daily John, ENRICHMENT TEACHER for 10 days. Paroxetine HCL 10/12/2016 - Hx Tablets 20mg 30tabs take 1 tab F41.9 Hank 12/29/2016 daily John, ENRICHMENT TEACHER F43.23 Levofloxacin 08/16/2016 - Hx Tablets 500mg 10tabs one by mouth Hank Lopez, 08/26/2016 daily for 10 ENRICHMENT TEACHER days Azithromycin 07/27/2016 - Hx Tablets 250mg 6tabs 2 tabs by Hankjohny Lopez, 07/27/2016 mouth every ENRICHMENT TEACHER day x1 day, 1 tab by mouth every day x 4 days Doxycycline 07/27/2016 - Hx Tablets 100mg 2tabs take two Hank John Hyclate 08/16/2016 tablets ENRICHMENT TEACHER once. Prednisone 07/13/2016 - Hx Tablets 5mg 30tabs 2 by mouth M06.0 Zsofia 09/07/2016 every day 9 Osmel, [facility] Z79.899 Humira Pen 07/13/2016 - Hx PNKT 40mg/0.8ML 2units inject 40 mg M06.09 Zsofia 03/15/2017 subcutaneously Osmel, every other week RETAIL ANALYST Z79.899 Omeprazole 05/18/2016 - Hx Capsules 20mg 30caps Not Taking R10.9 Mark, 11/27/2016 MD Reuben Omeprazole 02/21/2016 - Hx Capsules 40mg 30caps Discontinued R10.9 Hank 11/27/2016 John, TREVON Carafate 02/18/2016 - Hx Suspension 1GM/10 420ml 10 milliliters R10.9 Cofield 05/25/2016 ML three times John, ENRICHMENT TEACHER daily before meals Zantac 75 02/18/2016 - Hx Tablets 75mg 60tabs one tablet bid R10.9 Cofield 05/25/2016 prn John, ENRICHMENT TEACHER Omeprazole 02/11/2016 - Hx Capsules 20mg 30caps 1 by mouth R10.9 Hank 02/21/2016 once daily John, ENRICHMENT TEACHER Escitalopram 10/13/2015 - Hx Tablets 20mg 90tabs take 1 tablet F41.9 Yves E. Oxalate 11/27/2016 by mouth every Iram, jim Wright Meclizine HCL 08/20/2015 - Hx Tablets 25mg 30tabs take one R42 Hank 09/22/2015 tablet every 6 John, ENRICHMENT TEACHER hours as needed for dizziness Escitalopram 07/13/2015 - Hx Tablets 10mg 90tabs 1 by mouth F41.9 Connie Oxalate 10/13/2015 every day Arabella Yeboah. Voltaren 06/01/2015 - Hx Gel 1% 1tubes apply to 719.46 Zsofia 07/13/2015 affected area Osmel, twice a day, RETAIL ANALYST as needed Methotrexate 03/22/2015 - Hx Tablets 2.5mg 30tabs 6 tabs 1x per 714.0 Joel 07/13/2015 week (not Endo, taking, MLalaD. stomach upset) Folic Acid 03/22/2015 - Hx Tablets 1mg 30tabs Not Taking M06.9 Zsofia 11/27/2016 Osmel, RETAIL ANALYST Diclofenac 01/29/2015 - Hx Tablets DR 75mg 60tabs 1 by mouth 719.49 Joel Sodium 03/22/2015 twice a day Kyle Garcia Metoprolol 10/29/2012 - Hx Tablets ER 25mg 180tabs 1 by mouth Blayne Succinate ER 12/13/2014 24HR twice a day Arabella Dominguez., [facility], [place] [facility] Lexapro - Hx 10mg daily Unknown [...] CPT Code Status Date Vaccine Lot # [id number] Given 06/21/2017 Influenza Virus Vaccine, Quadrivalent, Split, [id number] Preservative Free 16669 Given 07/24/2016 Influenza Virus Vaccine, Quadrivalent, Split [id number] Virus, [place] Use 28818 Given 07/13/2015 Tdap - Tetanus/Diptheria/Acellular Pertussis [id number] 61484 Given 08/25/2010 Tdap - Tetanus/Diptheria/Acellular Pertussis 92037 Refused 07/13/2015 Influenza Virus Vaccine, Quadrivalent, Split, [...] Helico Pylori Antigen- Negative Negative 31 Stool Comp Metabolic Panel 02/11/2016 Sodium 136 mmol/L [...] Non- 84.3 >60 Egfr 108.4 >60 32 CBC Auto Diff 02/11/2016 White Blood Count [...] Blood Cells % 0.3 Comp Metabolic Panel 08/20/2015 Sodium 136 mmol/L [...] 0-2 Nucleated Red Blood Cells % 0 Lipid Profile (Trig/Chol/HDL) 07/14/2015 Triglycerides 132 mg/dL 34 Cholesterol 216 mg/dL 35 HDL Cholesterol 79.8 mg/dL 36 LDL Cholesterol 110 mg/dL 37 Laboratory test finding 07/14/2015 TSH (Thyroid Stim Horm) 1.44 ?IU/mL 0.34-5.60 CBC Auto Diff 04/21/2015 White Blood Count [...] 39 Erythrocyte Sed Rate 12 mm/Hr 0-14 Comp Metabolic Panel 02/01/2015 Sodium 135 mmol/L [...] Non- 90.2 >60 Egfr 116.0 >60 40 CBC Auto Diff 02/01/2015 White Blood Count [...] Blood Cells % 0 Laboratory test finding 02/01/2015 C Reactive Protein [...] tested in 2-4 weeks. Test Performed by: [facility] [address] [place] [address] 3 Normal Range 180 to 914 Indeterminate [...] [address]: Farzana Gayle MD Acct: [id number] Unit: [id number] AGE: 42 Location: [facility] Re12/27/17 SEX: F Status: REG REF SPEC: [id number] WAGNER: 12/27/17-1142 [facility] DR: Farzana Gayle MD REQ: [id number] RECD: 12/27/17-1541 STATUS: MATY GARCIA DR: Connei Yeboah MD _ ORDERED: LEVEL 4, IMMUNO-FIRST COMMENTS: [id number] FINAL DIAGNOSIS Uterus, endocervix, curettage: -- Detached [...] 1241 END OF REPORT DEPARTMENT OF PATHOLOGY, [address] [place] [address] Bo Ng M.D. Director [facility] # [id number] 11 SEE RESULT BELOW Name: CRISTINA CHARLES : [address]: Farzana Gayle MD Acct: [id number] Unit: [id number] AGE: 42 Location: [facility] Re12/06/17 SEX: F Status: REG REF SPEC: [id number] WAGNER: 12/06/17-[address]: Farzana Gayle MD REQ: [id number] RECD: 12/06/17-1206 STATUS: MATY GARCIA DR: Connie Yeboah MD _ ORDERED: TP IMAGE ANAL, ACCOUNTS RECEIVABLE MANAGER PHYS INTERP, HPV/Thin Prep COMMENTS: [id number] EPITHELIAL CELL ABNORMALITIES Low grade squamous intraepithelial lesion (LSIL) A. Ectocervical/Endocervical Specimen Adequacy: Satisfactory of evaluation Transformation zone component identified Patient Information: HPV: High risk HPV RNA testing regardless of pap results. Actual Specimen Date: 12/06/17 LMP If Unknown: unknown Date of Last Specimen: 09/21/15 ?: N Post Menopausal?: N Hysterectomy?: N Date Time Test Result Flag (u) Normal Range 12/06/17 0902 @ HPV RNA POSITIVE A Negative @ @ The high-risk HPV types detected by the assay include: 16, @ 18, 31, 33, 35, 39, 45, 51, 52, 56, 58, 59, 66, and 68. Signed (signature on file) Tessie Green MD 11/25 1522 This Pap test was evaluated with the assistance of the EveryScapePrep Test Imaging System. Due to cytologic findings at the park interpreter microscope, comprehensive manual rescreening by a On Air Personality may be required. The Pap Smear is [...] years. END OF REPORT DEPARTMENT OF PATHOLOGY, [address] [place] [address] Bo Ng M.D. Director [facility] # [id number] 12 Because ethnic data is not always [...] For detailed information regarding test interpretation see: [email or web address]/ [email or web address] 23 Test Performed by: [place] [address] Housetrailer Servicer: Venkatesh Cruz II, M.D., Ph.D. 24 Acute inflammation: >10.00 25 [id number] 26 SEE RESULT BELOW Name: SARAH CHARLESRancho Santoyo : [address]: Reuben Flores MD Acct: [id number] Unit: [id number] AGE: 40 Location: [facility] Re05/24/16 SEX: F Status: REG REF SPEC: [id number] WAGNER: 05/24/16-1442 [facility] DR: Reuben Flores MD REQ: [id number] RECD: 05/24/16-1710 STATUS: PETEY GARCIA DR: Connie Yeboah MD _ SOURCE: GAS ANTRUM SPDESC: ORDERED: Clotest COMMENTS: [id number] Procedure Result Reported Site Clotest Final 05/25/16716 ML Clotest Negative * ML - [facility] ([facility]) . END OF REPORT * ML=Testing performed at Main Lab DEPARTMENT OF PATHOLOGY, [address] [place] [address] Bo Ng M.D. Director [facility] # [id number] 27 [id number] 28 SEE RESULT BELOW Name: JAYANTKETTYCRISTINA Santoyo : [address]: Reuben Flores MD Acct: [id number] Unit: [id number] AGE: 40 Location: [facility] Re/17/16 SEX: F Status: REG REF SPEC: [id number] WAGNER: 05/24/16-1241 [facility] DR: Reuben Flores MD REQ: [id number] RECD: 05/24/16 STATUS: MATY GARCIA DR: Connie Yeboah MD _ ORDERED: LEVEL IV COMMENTS: [id number] FINAL DIAGNOSIS Duodenum, third portion, biopsy: -- [...] performed at Main Lab DEPARTMENT OF PATHOLOGY, [address] [place] [address] Bo Ng M.D. Director [facility] # [id number] 29 Because ethnic data is not always [...] Acute inflammation: >10.00 31 Test Performed by: [place] [address] Housetrailer Servicer: Venkatesh Cruz II, M.D., Ph.D. 32 Because [...] INFORMATION Method: Flow Cytometry Performing Laboratory CLIA# [id number] Test Performed by: [place] [address] Housetrailer Servicer: Venkatesh Cruz II, M.D., Ph.D. 44 Test Performed by: [place] [address] Housetrailer Servicer: Venkatesh Cruz II, M.D., Ph.D. 45 REFERENCE VALUE <20.0 (Negative) Test Performed by: [place] [address] Housetrailer Servicer: Venkatesh Cruz II, M.D., Ph.D. 46 No [...] screening test (e.g., EIA). Test Performed by: [place] [address] Housetrailer Servicer: Venkatesh Cruz II, M.D., Ph.D. 48 Acute inflammation: >10.00 49 Test Performed by: [place] [address] Housetrailer Servicer: Venkatesh Cruz II, M.D., Ph.D. 50 Serologic response to B. burgdorferi infection is not detected, but cannot rule out early infection during which low or undetectable antibody levels to B. burgdorferi may be present. If clinically indicated, a new serum specimen should be submitted in 7-14 days. Test Performed by: [place] [address] Housetrailer Servicer: Venkatesh Cruz II, M.D., Ph.D. Procedures Date CPT Code Description Status 05/11/2017 Mammogram Completed 02/11/2015 96424 EKG Tracing & Interpretation Completed 07/27/2014 69685 EKG Tracing & Interpretation Completed 07/16/2013 62462 EKG Tracing & Interpretation Completed Encounters Type Date Location Provider CPT E/M Dx Office Visit 01/03/2018 [facility] FREDDY Bishop [address]271 M06.09 8:30a Of [place] M35.01 Z79.899 R87.612 Office Visit 08/03/2017 1:30p [facility] FREDDY Bishop 28318 M06.09 Of Chidi M35.01 Z79.899 Z13.220 Office Visit 06/21/2017 8:00a [facility] Of Jalil Bolivar, 71200 M06.09 [facility] RETAIL ANALYST Z79.899 Z23 Office Visit 06/19/2017 11:40a [facility] [place] [address] F41.9 Buckley K21.9 Office Visit 03/15/2017 8:00a [facility] Of Jalil Bolivar, [address]67 M06.09 [facility] RETAIL ANALYST Z79.899 Office Visit 12/29/2016 9:00a [facility] [place] [address] F41.9 Buckley M89.8x8 Office Visit 11/27/2016 8:00a [facility] Jalil Bolivar RETAIL ANALYST 90645 M06.09 - [place] F43.23 M70.62 Z79.899 Office Visit 10/12/2016 9:00a [facility] [place] [address] F41.9 Buckley Office Visit 09/07/2016 8:30a [facility] Of Jalil Bolivar, [address]25 M06.09 [facility] RETAIL ANALYST M70.62 Z79.899 Office Visit 07/24/2016 4:00p [facility] [place] [address] J01.90 Buckley Z23 Office Visit 07/13/2016 8:30a [facility] Services Of aJlil Bolivar, [address]5650 M06.09 [facility] RETAIL ANALYST M25.571 M25.551 M25.562 Z79.899 Office Visit 05/25/2016 9:00a [facility] Of Jalil Bolivar, 31689 M06.09 [facility] RETAIL ANALYST Z79.899 Office Visit 02/18/2016 9:40a [facility] [place] [address] R10.9 Buckley R10.13 Office Visit 02/11/2016 2:20p [facility] [place] [address] R04.2 Buckley R10.9 Office Visit 02/08/2016 2:20p [facility] Of Blayne Dominguez M.D., 81701 I47.1 [facility] AT [facility], [place] [facility] Office Visit 10/13/2015 1:40p [facility] - Connie Yeboah, [address]707 F41.9 [place] Kyle Office Visit 09/22/2015 2:40p [facility] - Connie Yeboah, 22008 F41.9 [place] SusiDLala Office Visit 08/20/2015 10:00a [facility] - Hank Lopez, TREVON [address] R42 Buckley F41.9 Office Visit 07/13/2015 1:10p [facility] Connie Yeboah M.D. 04978 F41.9 - [place] Z13.220 Z23 Z79.899 Office Visit 06/01/2015 1:30p [facility] Of FREDDY Bishop [address]5814 714.0 [facility] V58.69 719.46 Office Visit 03/22/2015 1:40p [facility]ology Services Joel Garcia M.D. 78732 714.0 Of [facility] 795.79 V58.69 Office Visit 02/11/2015 1:00p [facility] Of Blayne Dominguez M.D., 22519 785.1 [facility] AT [facility], [facility] 427.0 Office Visit 01/29/2015 11:00a [facility] Services Joel Garcia, 35627 719.49 Of Chidi Wright 714.0 795.79 Office Visit 12/14/2014 10:45a [facility] Of Gabe Celis, 15827 719.47 [facility] 845.00 714.0 Office Visit 07/27/2014 3:40p [facility] Of Blayne Dominguez M.D., 87010 785.1 [facility] AT [facility], [facility] 427.0 Office Visit 07/16/2013 2:45p [facility] Suraj Dominguez M.D., 29137 785.1 [facility] AT [facility] Office Visit 01/13/2013 8:15a [facility] Suraj Dominguez M.D., 82596 427.0 [facility] AT [facility], [facility] 785.1 Office Visit 11/13/2012 4:00p [facility] Suraj Dominguez M.D., 12878 427.0 [facility], [facility] Plan of Care Future Appointment(s):03/12/2018 4:00 pm - Im Nurse Holter Monitor at [facility] - Ogrfbuoxo69/04/2018 4:00 pm - Im Nurse Holter Monitor at [facility]03/22/2018 2:45 pm - JOSE A LynnW at [facility]04/01/2018 8:30 am - FREDDY Bishop at [facility] Of [facility]03/07/2018 - Hank Lopez NPF41.9 Anxiety disorder, unspecifiedNew Medication:Buspirone HCL 5 mgComments:I have prescribed the Buspar that we discussed. Start taking 5mg twice daily. If tolerated after three days you can increase by 2.5 mg twice daily every 3 days. Do not exceed 15mg twice daily until we meet again. Continue seeing Tomás Smith.Follow up:1 ixjdrR73.2 PalpitationsNew Orders:Holter MonitorEKGComments: For your palpitations I am ordering some labs [...]
--- OUTSIDE RECORDS SUMMARY | 2018-03-23 10:55 | XMS REPORT ---
:1975 External Reference #:[id number] Author Organization [facility] Address [address] [address] Phone [phone] Care Team Providers Name Role Phone Connie Yeboah MD Primary Care Physician Unavailable Payers Type Date Identification Numbers Payment Provider Subscriber Commercial Effective: Policy Number: [id number] [facility] Cristina Charles 2012 PayID: [id number] [address] [place] [address] Problems Date Description Provider Status Onset: 07/27/2014 Palpitations Blayne Dominguez M.D., [facility], Active FSCAI Onset: 07/27/2014 Paroxysmal supraventricular Blayne Dominguez M.D., [facility], Active tachycardia [facility]SCAI Onset: 12/14/2014 Arthralgia [...] With Boyfriend 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 [...] Form Strength Qnty SIG Indications Ordering Provider Systane Ultra Active Solution 0.4-0.3% 8ml 1 drop M35.01 Zsofia 017 each eye Osmel, twice [employer]COMM[employer] MECH[employer]IC daily for dry eyes Xeljanz XR Active Tablets ER 11mg 30tabs 1 by mouth M06.09 Zsofia 017 24HR every day Osmel, Start on TELECOMMUNICATION[employer] LINE MECHANIC 08/27/17 Ranitidine Active Tablets 150mg 60tabs one by K21.9 Hank HCL 017 mouth John, [employer]ATE [employer] DEVEL[employer] twice a day as needed Lidocaine Active Ointment 5% 35.440 apply to M89.8x8 Hank 017 gm painful John, 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 Héctor Med Active 1units As Hank Sinus 016 directed John, ASSOCIATE WEB DEVELOPER Irrigation Kit Voltaren Active Gel 1% 100gm apply to M25.571 Zsofia 016 affected Osmel, area twice TELECOMMUNICATIONS LINE MECHANIC a day, as needed M25.551 M25.562 Fluticasone 09/23/2015 Active Suspension 50mcg/Act 48units instill Connie Propionate 1 sprays Edilia, into M.D. each nostril once daily Diltiazem HCL ER 06/17/2015 Active Caps ER 24HR 240mg 90caps 1 tab by Connie Coated Beads mouth Edilia, every M.D. day. Hydroxychloroquine 06/01/2015 Active Tablets 200mg 180tabs 2 tabs Z Zsofia Sulfate by mouth 7 Osmel, daily 9 TELECOMMUNICATIONS LINE MECH[employer]IC . 8 9 9 M06.09 Gas Relief [...] M06.0 Zsofia 01/03/2018 s Taking-- 9 Osmel, TELECOMM[employer]ICATIONS LINE MECH[employer]IC take 4 tabs once dly for 1 wk 3 tabs once dly for 1 week 2 tabs once daily for 1 wk then 1 tab once dly Paroxetine HCL 05/09/2017 - Hx Tablets 40mg 30tab 1 by mouth F41.9 Hankjohny Lopez, 06/19/2017 s every day [employer]ATE WE[employer] DEVELOPER F43.23 Simponi Aria 03/15/2017 - Hx Solution 50mg/4ML 4ml 2 mg/kg iv M06.09 Zsofia 08/03/2017 infusion weeks Osmel, TELECOMMUNICATIONS LINE MECHANIC 0 and 4, then every 8 weeks thereafter. Z79.899 Paroxetine HCL 12/29/2016 - Hx Tablets 20mg 30tabs 1 tablet F41.9 Hank John, 05/09/2017 daily [employer]OCIATE WE[employer] DEVELOPER F43.23 Hydroxyzine 12/29/2016 - Hx Capsules 25mg 60caps 1-2 caps by F41.9 Hank Pamoate 06/21/2017 mouth four John, ASSOCIATE WE[employer] DEVELOPER times a day as needed for anxiety Doxycycline 12/12/2016 - Hx Capsules 100mg 20caps one tablet Hank Hyclate 12/22/2016 twice daily John, ASSOCIATE WEB DEVELOPER for 10 days. Paroxetine HCL 10/12/2016 - Hx Tablets 20mg 30tabs take 1 tab F41.9 Hank 12/29/2016 daily John, ASSOCIATE WEB DEVELOPER F43.23 Levofloxacin 08/16/2016 - Hx Tablets 500mg 10tabs one by mouth Hank John, 08/26/2016 daily for 10 ASSOCIATE WEB DEVELOPER days Azithromycin 07/27/2016 - Hx Tablets 250mg 6tabs 2 tabs by Hank Lopez, 07/27/2016 mouth every ASSOCIATE WEB DEVELOPER day x1 day, 1 tab by mouth every day x 4 days Doxycycline 07/27/2016 - Hx Tablets 100mg 2tabs take two Hank Lopez Hyclate 08/16/2016 tablets ASSOCIATE WEB DEVELOPER once. Prednisone 07/13/2016 - Hx Tablets 5mg 30tabs 2 by mouth M06.0 Zsofia 09/07/2016 every day 9 Osmel, TELECOMMUNICATIONS LINE MECHANIC Z79.899 Humira Pen 07/13/2016 - Hx PNKT 40mg/0.8ML 2units inject 40 mg M06.09 Zsofia 03/15/2017 subcutaneously Osmel, every other week TELECOMMUNICATIONS LINE MECHANIC Z79.899 Omeprazole 05/18/2016 - Hx Capsules DR 20mg 30caps Not Taking R10.9 Mark, 11/27/2016 MD Reuben Omeprazole 02/21/2016 - Hx Capsules DR 40mg 30caps Discontinued R10.9 Hank 11/27/2016 TREVON Lopez Carafate 02/18/2016 - Hx Suspension 1GM/10 420ml 10 milliliters R10.9 Hank 05/25/2016 ML three times John, ASSOCIATE WEB DEVELOPER daily before meals Zantac 75 02/18/2016 - Hx Tablets 75mg 60tabs one tablet bid R10.9 Hank 05/25/2016 prn TREVON Lopez Omeprazole 02/11/2016 - Hx Capsules DR 20mg 30caps 1 by mouth R10.9 Hank 02/21/2016 once daily John, ASSOCIATE WEB DEVELOPER Escitalopram 10/13/2015 - Hx Tablets 20mg 90tabs take 1 tablet F41.9 Yves E. Oxalate 11/27/2016 by mouth every Iram, day Kyle Meclizine HCL 08/20/2015 - Hx Tablets 25mg 30tabs take one R42 Hank 09/22/2015 tablet every 6 John, ASSOCIATE WEB DEVELOPER hours as needed for dizziness Escitalopram 07/13/2015 - Hx Tablets 10mg 90tabs 1 by mouth F41.9 Connie Oxalate 10/13/2015 every day Kyle Yeboah Voltarehanh 06/01/2015 - Hx Gel 1% 1tubes apply to 719.46 Zsofia 07/13/2015 affected area Osmel, twice a day, TELECOMMUNICATIONS LINE MECH[employer]IC as needed Methotrexate 03/22/2015 - Hx Tablets 2.5mg 30tabs 6 tabs 1x per 714.0 Joel 07/13/2015 week (not Radha, taking, M.D. stomach upset) Folic Acid 03/22/2015 - Hx Tablets 1mg 30tabs Not Taking M06.9 Zsofia 11/27/2016 FREDDY Bolivar Diclofenac 01/29/2015 - Hx Tablets DR 75mg 60tabs 1 by mouth 719.49 Joel Sodium 03/22/2015 twice a day Klye Garcia Metoprolol 10/29/2012 - Hx Tablets ER 25mg 180tabs 1 by mouth Blayne Succinate ER 12/13/2014 24HR twice a day Arabella Dominguez., [facility], [facility] Lexapro - Hx 10mg daily Unknown 07/16/2013 [...] Form Strength Qnty SIG Indications Ordering Provider Td(Adult),Unsp Administered Injection Unknown ecified 001 Immunizations CPT Code Status Date Vaccine Lot # [id number] Given 06/21/2017 Influenza Virus Vaccine, Quadrivalent, Split, [id number] Preservative Free [id number] Given 07/24/2016 Influenza Virus Vaccine, Quadrivalent, Split [id number] Virus, [place] Use 20477 Given 07/13/2015 Tdap - Tetanus/Diptheria/Acellular Pertussis [id number] Given 08/25/2010 Tdap - Tetanus/Diptheria/Acellular Pertussis [id number] Refused 07/13/2015 Influenza Virus Vaccine, Quadrivalent, Split, Preservative Free Vital Signs Date Vital Result Comment 01/03/2018 Weight 162.00 lb Heart Rate 83 [...] Test Date Test Result H/L Range Note CBC Auto Diff 01/01/2018 White Blood Count [...] Egfr Non- 75.4 >60 Egfr 97.0 >60 1 Laboratory test finding 01/01/2018 Erythrocyte Sed Rate 2 mm/Hr 0-14 C Reactive Protein < 1.00 mg/L < 5.00 2 Lipid Profile (Trig/Chol/HDL) 01/01/2018 Triglycerides 74 mg/dL 3 Cholesterol 171 mg/dL 4 HDL Cholesterol 76.1 mg/dL 5 LDL Cholesterol 80 mg/dL 6 Laboratory test finding 12/27/2017 Surgical Pathology SEE RESULT BELOW 7 Laboratory test finding 12/06/2017 Cytology SEE RESULT BELOW 8 CBC Auto Diff 06/27/2017 White Blood Count [...] Egfr Non- 97.0 >60 Egfr 124.7 >60 9 Laboratory test finding 06/27/2017 C Reactive Protein 8.73 mg/L High < 5.00 10 Comp Metabolic Panel 05/02/2017 Sodium 135 mmol/L [...] Egfr Non- 87.9 >60 Egfr 113.0 >60 11 Laboratory test finding 05/02/2017 C Reactive Protein 8.75 mg/L High < 5.00 12 CBC Auto Diff 05/02/2017 White Blood Count [...] Egfr Non- 95.4 >60 Egfr 122.6 >60 13 Laboratory test finding 04/04/2017 C Reactive Protein 5.60 mg/L High < 5.00 14 CBC Auto Diff 04/04/2017 White Blood Count [...] Reactive Protein 7.36 mg/L High < 5.00 15 , 16 finding Comp Metabolic Panel 11/27/2016 Sodium 137 mmol/L 133-145 15 Potassium 4.0 mmol/L 3.5-5.0 15 Chloride 101 mmol/L 101-111 15 Co2 Carbon Dioxide 27 mmol/L 22-32 15 Anion Gap 9 mmol/L 2-11 15 Glucose 80 mg/dL 70-100 15 Blood Urea Nitrogen 14 mg/dL 6-24 15 Creatinine 0.80 mg/dL 0.51-0.95 15 BUN/Creatinine Ratio 17.5 8-20 15 Calcium 9.4 mg/dL 8.6-10.3 15 Total Protein 7.1 g/dL 6.4-8.9 15 Albumin 4.4 g/dL 3.2-5.2 15 Globulin 2.7 g/dL 2-4 15 Albumin/Globulin Ratio 1.6 1-3 15 Total Bilirubin 0.60 mg/dL 0.2-1.0 15 Alkaline Phosphatase 68 U/L 34-104 15 Alt 28 U/L 7-52 15 Ast 32 U/L 13-39 15 Egfr Non- 79.0 >60 15 Egfr 101.7 >60 15, 17 CBC Auto Diff 11/27/2016 White Blood Count 10.3 10^3/uL 3.5-10.8 15 Red Blood Count 4.84 10^6/uL 4.0-5.4 15 Hemoglobin 14.3 g/dL 12.0-16.0 15 Hematocrit 44 % 35-47 15 Mean Corpuscular Volume 90 fL 80-97 15 Mean Corpuscular Hemoglobin 30 pg 27-31 15 Mean Corpuscular HGB Conc 33 g/dL 31-36 15 Red Cell Distribution Width 14 % 10.5-15 15 Platelet Count 244 10^3/uL 150-450 15 Mean Platelet Volume 10 um3 7.4-10.4 15 Abs Neutrophils 6.6 10^3/uL 1.5-7.7 15 Abs Lymphocytes 2.5 10^3/uL 1.0-4.8 15 Abs Monocytes 0.9 10^3/uL High 0-0.8 15 Abs Eosinophils 0.2 10^3/uL 0-0.6 15 Abs Basophils 0.1 10^3/uL 0-0.2 15 Abs Nucleated RBC 0 10^3/uL 15 Granulocyte % 63.9 % 38-83 15 Lymphocyte % 24.4 % Low 25-47 15 Monocyte % 8.8 % 1-9 15 Eosinophil % 2.0 % 0-6 15 Basophil % 0.9 % 0-2 15 Nucleated Red Blood Cells % 0 15 Laboratory test 11/27/2016 Erythrocyte Sed Rate 9 mm/Hr 0-14 15, 18 finding CMP Panel 09/07/2016 Albumin <pending> Alt [...] 07/13/2016 M tuberculosis by Quantiferon Negative Negative 19 TB Ag minus Nil Result 0.03 IU/mL TB Mitogen minus Nil Result > 10.00 IU/mL TB Nil Result 0.01 IU/mL 20 Hepatitis Acute Panel 07/13/2016 Hepatitis C Antibody Nonreactive Nonreactive Hepatitis A AB Igm Nonreactive Nonreactive Hepatitis B Core AB Igm Nonreactive Nonreactive Hepatitis B Surface Ag Nonreactive Nonreactive Laboratory test 07/13/2016 C Reactive Protein 17.75 mg/L High < 5.00 21 finding Laboratory test 05/24/2016 Clotest SEE RESULT 22, 23 finding BELOW Laboratory test 05/24/2016 Surgical Interface SEE RESULT 24, 25 finding Order BELOW CBC W/Auto Diff 05/23/2016 [...] Egfr Non- 74.1 >60 Egfr 95.3 >60 26 Laboratory test finding 05/23/2016 Erythrocyte Sed Rate 12 mm/Hr 0-14 C Reactive Protein 11.66 mg/L High < 5.00 27 Laboratory test finding 02/14/2016 Helico Pylori Antigen- Negative Negative 28 Stool CBC Auto Diff 02/11/2016 White Blood [...] Egfr Non- 84.3 >60 Egfr 108.4 >60 29 CBC Auto Diff 08/20/2015 White Blood Count [...] Blood Cells % 0 Comp Metabolic Panel 08/20/2015 Sodium 136 mmol/L [...] Egfr Non- 88.8 >60 Egfr 114.1 >60 30 Lipid Profile (Trig/Chol/HDL) 07/14/2015 Triglycerides 132 mg/dL 31 Cholesterol 216 mg/dL 32 HDL Cholesterol 79.8 mg/dL 33 LDL Cholesterol 110 mg/dL 34 Laboratory test finding 07/14/2015 TSH (Thyroid Stim 1.44 ?IU/mL 0.34- 5.60 Horm) Laboratory test finding 04/21/2015 C Reactive Protein 9.94 mg/L High < 5.00 35 Erythrocyte Sed Rate 12 mm/Hr 0-14 Comp Metabolic Panel 04/21/2015 Sodium 137 mmol/L [...] Egfr Non- 88.8 >60 Egfr 114.1 >60 36 CBC Auto Diff 04/21/2015 White Blood Count [...] 0-2 Nucleated Red Blood Cells % 0 CBC Auto Diff 02/01/2015 White Blood Count [...] Cells % 0 Laboratory test finding 02/01/2015 Rheumatoid Factor <15 IU/mL <15 37 Cyclic Citrullinated Pept IgG <15.6 U 38 Hla B27 02/01/2015 Hla B27 Negative 39 Hla B27 Interp See Comment 40 Laboratory test finding 02/01/2015 C Reactive Protein 10.84 mg/L High &lt ; 5.00 41 Erythrocyte Sed Rate 11 mm/Hr 0-14 Comp Metabolic Panel 02/01/2015 Sodium [...] Egfr Non- 90.2 >60 Egfr 116.0 >60 42 Lyme Western Blot 12/18/2014 Lyme Disease IgG Ab WB Negative Negative Lyme Disease IgG Bands Present p41, kDa Lyme Disease IgM Ab WB Negative Negative Lyme Disease IgM Bands Present No bands detecte <SEE NOTE> kDa 43 Lyme Disease Interpretation See Comment 44 Laboratory test finding 12/18/2014 C Reactive Protein 17.08 mg/L High &lt ; 5.00 45 Erythrocyte Sed Rate 14 mm/Hr 0-14 Rheumatoid Factor <15 IU/mL <15 46 Lyme Disease Serology Negative Negative 47 CBC Auto Diff 12/18/2014 White Blood Count [...] 0-2 Nucleated Red Blood Cells % 0 1 Because ethnic data is not always [...] 5 Kidney failure <15 (or dialysis) 2 Acute inflammation: >10.00 3 Desirable: <150 Borderline High: 150-199 High: 200-499 Very High: >500 4 Desirable: <200 Borderline High: 200-239 High: >239 5 Low: <40 Desirable: 40-60 High: >60 6 Desirable: <100 Near Optimal: 100-129 Borderline High: 130-159 High: 160-189 Very High: >189 7 SEE RESULT BELOW Name: CRISTINA CHARLES : [address]: Farzana Gayle MD Acct: [id number] Unit: [id number] AGE: 42 Location: [facility] Re12/27/17 SEX: F Status: REG REF SPEC: [id number] WAGNER: 12/27/17-11[address] [facility] [address]: Farzana Gayle MD REQ: [id number] RECD: 12/27/17 STATUS: MATY GARCIA DR: Connie Yeboah MD _ ORDERED: LEVEL 4, IMMUNO-FIRST COMMENTS: [id number] FINAL DIAGNOSIS Uterus, endocervix, curettage: -- Detached [...] 1241 END OF REPORT DEPARTMENT OF PATHOLOGY, [address] [place] [address] Bo Ng M.D. Director [facility] # [id number] 8 SEE RESULT BELOW Name: STEVECRISTINA Santoyo : [address]: Farzana Gayle MD Acct: [id number] Unit: [id number] AGE: 42 Location: [facility] Re12/06/17 SEX: F Status: REG REF SPEC: [id number] WAGNER: 12/06/17-09 [facility] DR: Farzana Gayle MD REQ: [id number] RECD: 12/06/17120 STATUS: MATY GARCIA DR: Connie Yeboah MD _ ORDERED: TP IMAGE ANAL, CRATE ICER PHYS INTERP, HPV/Thin Prep COMMENTS: [id number] EPITHELIAL CELL ABNORMALITIES Low grade squamous intraepithelial [...] was evaluated with the assistance of the fitkitPrep Test Imaging System. Due to cytologic findings at the agency trainer microscope, comprehensive manual rescreening by a Chemical Supervisor may be required. The Pap Smear is [...] years. END OF REPORT DEPARTMENT OF PATHOLOGY, [address] [place] [address] Bo Ng M.D. Director [facility] # [id number] 9 Because ethnic data is not always readily [...] 15-29 5 Kidney failure <15 (or dialysis) 10 Acute inflammation: >10.00 11 Because ethnic data is not always readily [...] 15-29 5 Kidney failure <15 (or dialysis) 12 Acute inflammation: >10.00 13 Because ethnic data is not always readily [...] 15-29 5 Kidney failure <15 (or dialysis) 14 Acute inflammation: >10.00 15 STANDING ORDER VALID 09/07/16-03/08/17 16 Acute inflammation: >10.00 17 Because ethnic data is not always readily [...] 15-29 5 Kidney failure <15 (or dialysis) 18 STANDING ORDER VALID 09/07/16-03/08/17 19 No interferon-gamma response to M. tuberculosis antigens was detected. Infection with M. tuberculosis is unlikely. A negative result alone does not exclude infection with M. tuberculosis. For detailed information regarding test interpretation see: [email or web address]/test-catalog/ [email or web address] 20 Test Performed by: [place] [address] [employer]: Venkatesh Cruz II, M.D., Ph.D. 21 Acute inflammation: >10.00 22 [id number] 23 SEE RESULT BELOW Name: CRISTINA CHARLES : [address]: Reuben Flores MD Acct: [id number] Unit: [id number] AGE: 40 Location: [facility] Re05/24/16 SEX: F Status: REG REF SPEC: [id number] WAGNER: 05/24/16-1442 [facility] [address]: Reuben Flores MD REQ: [id number] RECD: 05/24/16-513 STATUS: COMP [facility] DR: Connie Yeboah MD _ SOURCE: GAS ANTRUM SPDESC: ORDERED: Clotest COMMENTS: [id number] Procedure Result Reported Site Clotest Final 05/25/16716 ML Clotest Negative * ML - [facility] ([facility]) . END OF REPORT * ML=Testing performed at Main Lab DEPARTMENT OF PATHOLOGY, [address] [place] [address] Bo Ng M.D. Director [facility] # [id number] 24 [id number] 25 SEE RESULT BELOW Name: CRISTINA CHARLES : [address]: Reuben Flores MD Acct: [id number] Unit: [id number] AGE: 40 Location: [facility] Re05/24/16 SEX: F Status: REG REF SPEC: [id number] WAGNER: 05/24/16-124 [facility] [address]: Reuben Flores MD REQ: [id number] RECD: 05/24/16 STATUS: MATY GARCIA DR: Connie Yeboah MD _ ORDERED: LEVEL IV COMMENTS: [id number] FINAL DIAGNOSIS Duodenum, third portion, biopsy: -- [...] performed at Main Lab DEPARTMENT OF PATHOLOGY, [address] [place] [address] Bo Ng M.D. Director [facility] # [id number] 26 Because ethnic data is not always readily [...] 15-29 5 Kidney failure <15 (or dialysis) 27 Acute inflammation: >10.00 28 Test Performed by: [place] [address] [employer]: Venkatesh Cruz II, M.D., Ph.D. 29 Because ethnic data is not always [...] 5 Kidney failure <15 (or dialysis) 30 Because ethnic data is not always readily [...] 15-29 5 Kidney failure <15 (or dialysis) 31 Desirable <150 Borderline high 150-199 High 200-499 Very High >500 32 Desirable <200 Borderline high 200-239 High >239 33 Low <40 Desirable: 40-60 High: >60 34 Desirable: <100 mg/dL Near Optimal: 100-129 mg/dL Borderline High: 130-159 mg/dL High: 160-189 mg/dL Very High: >189 mg/dL 35 Acute inflammation: >10.00 36 Because ethnic data is not always readily [...] 15-29 5 Kidney failure <15 (or dialysis) 37 Test Performed by: [address] [place] [address] [employer]: Venkatesh Cruz II, M.D., Ph.D. 38 REFERENCE VALUE <20.0 (Negative) Test Performed by: [facility] [place] [address] [employer]: Venkatesh Cruz II, M.D., Ph.D. 39 REFERENCE VALUE Not Applicable 40 RESULT: HLA-B27 antigen was not detected. ADDITIONAL INFORMATION Method: Flow Cytometry Performing Laboratory CLIA# [id number] Test Performed by: [place] [address] [employer]: Venkatesh Cruz II, M.D., Ph.D. 41 Acute inflammation: >10.00 42 Because ethnic data is not always readily [...] 15-29 5 Kidney failure <15 (or dialysis) 43 No bands detected 44 Specific serologic response to B. burgdorferi infection [...] screening test (e.g., EIA). Test Performed by: [place] [address] [employer]: Venkatesh Cruz II, M.D., Ph.D. 45 Acute inflammation: >10.00 46 Test Performed by: [place] [address] [employer]: Venkatesh Cruz II, M.D., Ph.D. 47 Serologic response to B. burgdorferi infection is not detected, but cannot rule out early infection during which low or undetectable antibody levels to B. burgdorferi may be present. If clinically indicated, a new serum specimen should be submitted in 7-14 days. Test Performed by: [place] [address] [employer]: Venkatesh Cruz II, M.D., Ph.D. Procedures Date CPT Code Description Status 05/11/2017 Mammogram Completed 02/11/2015 44896 EKG Tracing & Interpretation Completed 07/27/2014 32121 EKG Tracing & Interpretation Completed 07/16/2013 09519 EKG Tracing & Interpretation Completed Encounters Type Date Location Provider CPT E/M Dx Office Visit 01/03/2018 Rheumatology Services FREDDY Bishop [address]46 M06.09 8:30a Of [facility] M35.01 Z79.899 R87.612 Office Visit 08/03/2017 1:30p Rhe[facility]ology Services FREDDY Bishop 76314 M06.09 Of [facility] M35.01 Z79.899 Z13.220 Office Visit 06/21/2017 8:00a [facility] Of Jalil Bolivar, 41822 M06.09 [facility] TELECOMM[employer]S LINE MECHANIC Z79.899 Z23 Office Visit 06/19/2017 11:40a [facility] [place] [address] F41.9 [place] K21.9 Office Visit 03/15/2017 8:00a [facility] Of Jalil Bolivar, 47325 M06.09 [facility] TE[employer]COMM[employer] LINE MECHANIC Z79.899 Office Visit 12/29/2016 9:00a [facility] [place] [address] F41.9 [place] M89.8x8 Office Visit 11/27/2016 8:00a [facility] Jalil Bolivar TELECOMMUNICATIONS LINE MECHANIC 70438 M06.09 - [place] F43.23 M70.62 Z79.899 Office Visit 10/12/2016 9:00a [facility] [place] [address] F41.9 [place] Office Visit 09/07/2016 8:30a [facility] Of Jalil Bolivar, 03118 M06.09 [facility] [employer]COMM[employer] MECHANIC M70.62 Z79.899 Office Visit 07/24/2016 4:00p [facility] [place] [address] J01.90 [place] Z23 Office Visit 07/13/2016 8:30a [facility] Of Jalil Bloivar, 53805 M06.09 [facility] TELECOMM[employer] MECHANIC M25.571 M25.551 M25.562 Z79.899 Office Visit 05/25/2016 9:00a [facility]alil Bolivar, 11886 M06.09 [facility]CH[employer] Z79.899 Office Visit 02/18/2016 9:40a [facility] [place] [address] R10.9 [place] R10.13 Office Visit 02/11/2016 2:20p [facility] [place] [address] R04.2 [place] R10.9 Office Visit 02/08/2016 2:20p [facility] Of Blayne Dominguez M.D., 90912 I47.1 [facility] AT [facility] Office Visit 10/13/2015 1:40p [facility] - Connie Yeboah, 66449 F41.9 [place] MLalaDLala Office Visit 09/22/2015 2:40p [facility] - Connie Yeboah, 18336 F41.9 [place] M.DLala Office Visit 08/20/2015 10:00a [facility] [place] [address] R42 [place] F41.9 Office Visit 07/13/2015 1:10p [facility] Connie Yeboah M.D. 56389 F41.9 - [place] Z13.220 Z23 Z79.899 Office Visit 06/01/2015 1:30p [facility] Of Jalil Bolivar TELECOMMUNICATIONS LINE MECHANIC 91135 714.0 [facility] V58.69 719.46 Office Visit 03/22/2015 1:40p Rhe[facility]ology Services Joel Garcia M.D. 03884 714.0 Of [facility] 795.79 V58.69 Office Visit 02/11/2015 1:00p [facility] Of Balyne Dominguez M.D., 52805 785.1 [facility] AT [facility], [facility] 427.0 Office Visit 01/29/2015 11:00a [facility]ology Services Joel Garcia, 76665 719.49 Of Chidi Wright 714.0 795.79 Office Visit 12/14/2014 10:45a [facility] Of Gabe Celis, 87836 719.47 [facility]ty 845.00 714.0 Office Visit 07/27/2014 3:40p [facility] Of Blayne Dominguez M.D., 84169 785.1 [facility] AT [facility], [facility] 427.0 Office Visit 07/16/2013 2:45p [facility] Suraj Dominguez M.D., 24334 785.1 [facility] AT [facility] Office Visit 01/13/2013 8:15a [facility] Suraj Dominguez M.D., 10167 427.0 [facility] AT [facility] 785.1 Office Visit 11/13/2012 4:00p [facility] Of Blayne Dominguez M.D., 21445 427.0 [facility] AT [facility] FAC, FSCAI Plan of Care Future Appointment(s):03/22/2018 2:45 pm - Tomás Smith LCSW at [facility] - Xytcgeqwc51/25/2018 8:30 am - FREDDY Bishop at [facility]/29/2018 - Jalil Bolivar, CHATOPM06.09 Rheumatoid arthritis w/o rheumatoid factor, multiple sitesComments:Your arthritis seems to be clinically and symptomatically well controlled at this time.Your inflammatory markers are within normal range.Your latest laboratory tests indicate no detectable impairment of kidney and liver functions.Please, continue with the present medication regime.We discussed that Xeljanz may affect the immune systems in a way that it is able to fight malignancies less effectively.However, for now will continue on this medication regime.Continue with regular blood tests. You will need to have a blood test done about a week prior to your next appointment. You have a standing lab order on file. Refills will be sent to your pharmacy.Please call the office if you develop any sign or symptoms of infection or acute change in your health.Follow up:3 month labs iywtzL98.01 Sicca syndrome with xitknoaexdbvkpyammrnJ77.899 Other mcfp ( current) drug qpsvwguE78.612 Low grade intrepith lesion cyto smr crvx (LGSIL)
[2018-03-23] MEDS ORDERED: NS 0.9% 1000 ML* 1,000 ML IV ONE (11:05)
--- NOTE | 2018-03-23 12:10 | RAD ---
HISTORY: palpitations COMPARISONS: February 10, 2018 VIEWS: 1: frontal portable view of the chest at 11:50 AM FINDINGS: LINES AND TUBES: None. CARDIOMEDIASTINAL SILHOUETTE: The cardiomediastinal silhouette is normal for portable technique. PLEURA: The costophrenic angles are sharp. No pleural abnormalities are noted. LUNG PARENCHYMA: The lungs are clear. ABDOMEN: The upper abdomen is clear. There is no subphrenic gas. BONES AND SOFT TISSUES: No bone or soft tissue abnormalities are noted. IMPRESSION: NO ACTIVE CARDIOPULMONARY DISEASE.
[2018-03-23 12:50] LABS: ABS Basophils 0.1 10^3/ul (0-0.2); ABS Eosinophils 0 10^3/ul (0-0.6); ABS Monocytes 0.9 10^3/ul (0-0.8); ABS Neutrophils 7.2 10^3/ul (1.5-7.7); ABS Nucleated RBC 0 10^3/ul; Eosinophil % 0.3 % (0-6); Hematocrit 43 % (35-47); Hemoglobin 14.5 g/dl (12.0-16.0); Lymphocyte % 11.1 % (25-47); Mean Corpuscular HGB Conc 34 g/dl (31-36); Mean Corpuscular Hemoglobin 31 pg (27-31); Mean Corpuscular Volume 92 fL (80-97); Mean Platelet Volume 9.5 um3 (7.4-10.4); Nucleated Red Blood Cells % 0; Platelet Count 237 10^3/ul (150-450); Red Blood Count 4.68 10^6/ul (4.00-5.40); Red Cell Distribution Width 13 % (10.5-15); White Blood Count 9.2 10^3/ul (3.5-10.8)
[2018-03-23 13:00] LABS: INR 0.96 (0.77-1.02)
[2018-03-23 13:07] LABS: EGFR Non-African American 84.7 (>60)
[2018-03-23 14:29] VITALS: BP 130/91
--- NOTE | 2018-03-23 19:35 | ED ---
Claudio Martinez Tariq, scribed for Venkatesh Ponce MD on 03/23/18 at 1142 . Psychiatric Complaint - HPI Summary HPI Summary: A 42 y/o pt presents to the ED c/o severe anxiety. Pt characterizes the Sx as "feels different feelings around the anxiety and has been challenging". In addition pt c/o palpitations, decreased appetite, decreased sleep, night sweats , nausea, and tingling in arms. Currently, pt feels anxious and depressed, however, pt denies SI. Pt stated that she "wants to feel better" and has been working much more. PMHx GERD, and of taking anti-depressants. Pt has never seen a psychiatrist, has been following up with Hank Lopez NP. - History Of Current Complaint Chief Complaint: EDDysrhythmPalp Time Seen by Provider: 03/23/18 10:50 Hx Obtained From: Patient Hx Last Menstrual Period: 1 WEEK AGO Onset/Duration: Gradual Onset, Lasting Days Timing: Constant Character: Depressed, Anxious Related History: Positive For: Prior Psychiatric Issues - Anxiety, depression, panic disorder Has Suicidal: Denies: Thoughts - Allergies/Home Medications Allergies/Adverse Reactions: Allergies Allergy/AdvReac Type Severity Reaction Status Date / Time MS Penicillins [Penicillins] Allergy Intermediate Hives Verified 03/23/18 10:59 MS Pseudoephedrine Allergy Tachycardia Verified 03/23/18 10:59 [From Sudafed] seafood Allergy Intermediate Nausea And Uncoded 06/27/17 09:40 Vomiting PMH/Surg Hx/FS Hx/Imm Hx Endocrine/Hematology History: Denies: Hx Diabetes, Hx Thyroid Disease Cardiovascular History: Reports: Hx Hypertension Denies: Hx Congestive Heart Failure, Hx Pacemaker/ICD, Other Cardiovascular Problems/Disorders Respiratory History: Denies: Hx Asthma, Hx Chronic Obstructive Pulmonary Disease (COPD) GI History: Reports: Hx Gastroesophageal Reflux Disease - PAST Hx OF ACID REFLUX , Hx Irritable Bowel - PAST Hx, NOW CONTROLLED Denies: Hx Ulcer Sensory History: Reports: Hx Contacts or Glasses - GLASSES Denies: Hx Hearing Aid Opthamlomology History: Reports: Hx Contacts or Glasses - GLASSES Psychiatric History: Reports: Hx Anxiety - ON DAILY LEXAPRO, Hx Depression, Hx Panic Disorder - ANXIETY - Cancer History Hx Chemotherapy: No Hx Radiation Therapy: No - Surgical History Surgery Procedure, Year, and Place: ACL reconstruction on 02-06-13 LEFT KNEE. RIGHT WRIST, [facility], 2010. DEVIATED SEPTUM 2013 Hx Anesthesia Reactions: Yes - VERY SHACKY. N/V Infectious Disease History: No Infectious Disease History: Denies: Hx Hepatitis, Hx Human Immunodeficiency Virus (HIV), Traveled Outside the [place] in Last 30 Days - Family History Known Family History: Negative: Diabetes - Social History Alcohol Use: Daily Alcohol Amount: wine with dinner Substance Use Type: Reports: None Hx Tobacco Use: No Smoking Status (MU): Never Smoked Tobacco Have You Smoked in the Last Year: No Review of Systems Positive: Other - Decreased sleep, night sweats. Negative: Fever Positive: Palpitations Positive: Nausea, Other - Decreased appetite Neurological: Other - Bilateral UE tingling Positive: Anxious, Depressed All Other Systems Reviewed And Are Negative: Yes Physical Exam - Summary Physical Exam Summary: General: well-appearing, no pain distress. Skin: warm, color reflects adequate perfusion, dry Head: normal Eyes: EOMI, MONIKA ENT: normal Neck: supple, nontender Respiratory: CTA, breath sounds present Cardiovascular: RRR Abdomen: soft, nontender Bowel: present Musculoskeletal: normal, strength/ROM intact Neurological: sensory/motor intact, A&O x3 Psychological: Anxious, somewhat tearful Triage Information Reviewed: Yes Vital Signs On Initial Exam: Initial Vitals Temp Pulse Resp BP Pulse Ox 98.9 F 90 16 143/88 98 03/23/18 10:30 03/23/18 10:30 03/23/18 10:30 03/23/18 10:30 03/23/18 10:30 Vital Signs Reviewed: Yes Diagnostics - Vital Signs Vital Signs Temp Pulse Resp BP Pulse Ox 03/23/18 10:30 98.9 F 90 16 143/88 98 - Laboratory Lab Results: Lab Results 03/23/18 03/23/18 03/23/18 Range/Units 12:39 12:39 12:39 WBC 9.2 (3.5-10.8) 10^3/ul RBC 4.68 (4.00-5.40) 10^6/ul Hgb 14.5 (12.0-16.0) g/dl Hct 43 (35-47) % MCV 92 (80-97) fL MCH 31 (27-31) pg MCHC 34 (31-36) g/dl RDW 13 (10.5-15) % Plt Count 237 (150-450) 10^3/ul MPV 9.5 (7.4-10.4) um3 Neut % (Auto) 78.3 (38-83) % Lymph % (Auto) 11.1 L (25-47) % Hays % (Auto) 9.6 H (0-7) % Eos % (Auto) 0.3 (0-6) % Baso % (Auto) 0.7 (0-2) % Absolute Neuts (auto) 7.2 (1.5-7.7) 10^3/ul Absolute Lymphs (auto) 1.0 (1.0-4.8) 10^3/ul Absolute Monos (auto) 0.9 H (0-0.8) 10^3/ul Absolute Eos (auto) 0 (0-0.6) 10^3/ul Absolute Basos (auto) 0.1 (0-0.2) 10^3/ul Absolute Nucleated RBC 0 10^3/ul Nucleated RBC % 0 INR (Anticoag Therapy) (0.77-1.02) APTT (26.0-36.3) seconds D-Dimer, Quantitative (Less Than 230) ng/mL Sodium 134 L (135-145) mmol/L Potassium 3.4 L (3.5-5.0) mmol/L Chloride 99 L (101-111) mmol/L Carbon Dioxide 23 (22-32) mmol/L Anion Gap 12 H (2-11) mmol/L BUN 9 (6-24) mg/dL Creatinine 0.75 (0.51-0.95) mg/dL Est GFR ( Amer) 109.0 (>60) Est GFR (Non-Af Amer) 84.7 (>60) BUN/Creatinine Ratio 12.0 (8-20) Glucose 102 H (70-100) mg/dL Lactic Acid 0.7 (0.5-2.0) mmol/L Calcium 9.5 (8.6-10.3) mg/dL Magnesium 2.1 (1.9-2.7) mg/dL Total Bilirubin 0.70 (0.2-1.0) mg/dL AST 23 (13-39) U/L ALT 27 (7-52) U/L Alkaline Phosphatase 35 (34-104) U/L Total Creatine Kinase 95 (10-223) U/L CK-MB (CK-2) 0.7 (0.6-6.3) ng/mL Troponin I 0.00 (<0.04) ng/mL C-Reactive Protein 1.82 (< 5.00) mg/L B-Natriuretic Peptide ( - 100) pg/mL Total Protein 7.4 (6.4-8.9) g/dL Albumin 4.6 (3.2-5.2) g/dL Globulin 2.8 (2-4) g/dL Albumin/Globulin Ratio 1.6 (1-3) Lipase 23 (11.0-82.0) U/L TSH 1.18 (0.34-5.60) mcIU/mL Beta HCG, Quant < 0.60 mIU/mL Salicylates < 2.50 (<30) mg/dL Acetaminophen < 15 mcg/mL Serum Alcohol < 10 (<10) mg/dL 03/23/18 03/23/18 Range/Units 12:39 12:41 WBC (3.5-10.8) 10^3/ul RBC (4.00-5.40) 10^6/ul Hgb (12.0-16.0) g/dl Hct (35-47) % MCV (80-97) fL MCH (27-31) pg MCHC (31-36) g/dl RDW (10.5-15) % Plt Count (150-450) 10^3/ul MPV (7.4-10.4) um3 Neut % (Auto) (38-83) % Lymph % (Auto) (25-47) % Hays % (Auto) (0-7) % Eos % (Auto) (0-6) % Baso % (Auto) (0-2) % Absolute Neuts (auto) (1.5-7.7) 10^3/ul Absolute Lymphs (auto) (1.0-4.8) 10^3/ul Absolute Monos (auto) (0-0.8) 10^3/ul Absolute Eos (auto) (0-0.6) 10^3/ul Absolute Basos (auto) (0-0.2) 10^3/ul Absolute Nucleated RBC 10^3/ul Nucleated RBC % INR (Anticoag Therapy) 0.96 (0.77-1.02) APTT 29.9 (26.0-36.3) seconds D-Dimer, Quantitative < 200 (Less Than 230) ng/mL Sodium (135-145) mmol/L Potassium (3.5-5.0) mmol/L Chloride (101-111) mmol/L Carbon Dioxide (22-32) mmol/L Anion Gap (2-11) mmol/L BUN (6-24) mg/dL Creatinine (0.51-0.95) mg/dL Est GFR ( Amer) (>60) Est GFR (Non-Af Amer) (>60) BUN/Creatinine Ratio (8-20) Glucose (70-100) mg/dL Lactic Acid (0.5-2.0) mmol/L Calcium (8.6-10.3) mg/dL Magnesium (1.9-2.7) mg/dL Total Bilirubin (0.2-1.0) mg/dL AST (13-39) U/L ALT (7-52) U/L Alkaline Phosphatase (34-104) U/L Total Creatine Kinase (10-223) U/L CK-MB (CK-2) (0.6-6.3) ng/mL Troponin I (<0.04) ng/mL C-Reactive Protein (< 5.00) mg/L B-Natriuretic Peptide 19 ( - 100) pg/mL Total Protein (6.4-8.9) g/dL Albumin (3.2-5.2) g/dL Globulin (2-4) g/dL Albumin/Globulin Ratio (1-3) Lipase (11.0-82.0) U/L TSH (0.34-5.60) mcIU/mL Beta HCG, Quant mIU/mL Salicylates (<30) mg/dL Acetaminophen mcg/mL Serum Alcohol (<10) mg/dL Result Diagrams: 03/23/18 12:39 03/23/18 12:39 Lab Statement: Any lab studies that have been ordered have been reviewed, and results considered in the medical decision making process. - Radiology CXR Xray Interpretation: No Acute Changes Radiology Interpretation Completed By: Radiologist - No active cardiopulmonary disease. ED physician reviewed this radiology report. - EKG 1023 Cardiac Rate: NL - 90 BPM EKG Rhythm: Sinus Rhythm ST Segment: Normal EKG Interpretation: No ectomy Course/Dx - Course Course Of Treatment: DISCUSSED RESULTS WITH THE PATIENT. DENIES SI. HAS A COUNSELOR SHE SEES ONCE A WEEK. DECLINES MHE AT THIS TIME. WILL F/U PMD AND COUNSELOR; RETURN TO ED IF WORSE. - Differential Dx/Clinical Impression Provider Diagnosis: Palpitations, Anxiety Discharge - Sign-Out/Discharge Documenting (check all that apply): Discharge/Admit/Transfer - Discharge - Discharge Plan Condition: Stable Disposition: HOME Patient Education Materials: Heart Palpitations (ED), Anxiety (ED) Referrals: Hank Lopez NP [Primary Care Provider] - Additional Instructions: FOLLOW UP WITH YOUR DOCTOR. RETURN TO THE EMERGENCY DEPARTMENT FOR ANY WORSENING OF YOUR CONDITION OR QUESTIONS OR CONCERNS. - Billing Disposition and Condition Condition: STABLE Disposition: Home The documentation as recorded by the Claudio barnett Tariq accurately reflects the service I personally performed and the decisions made by me, Venkatesh Ponce MD.
== END 2018-03-23 14:34 | disposition home or self-care (01) ==
LOC: ED 10:22
DX: R00.2 Palpitations (principal); F41.9 Anxiety disorder, unspecified; R63.0 Anorexia; R11.0 Nausea; R20.2 Paresthesia of skin; R61 Generalized hyperhidrosis; K21.9 Gastro-esophageal reflux disease without esophagitis; Z72.820 Sleep deprivation; Z79.899 Other long term (current) drug therapy; Z88.0 Allergy status to penicillin; Z88.8 Allergy status to other drugs, medicaments and biological substances
CPT/HCPCS: 36415; 71045; 80053; 80320; 80329; 82550; 82553; 83605; 83690; 83735; 83880; 84443; 84484; 84702; 85025; 85379; 85610; 85730; 86140; 93005; 99282; G0480

== ENCOUNTER 2018-03-29 14:46 | Emergency (ER) | payer BC ==
--- OUTSIDE RECORDS SUMMARY | 2018-03-29 14:56 | XMS REPORT ---
:1975 External Reference #:[id number] Author Organization [facility] Address [address] [place] [address] [place] [address] Phone [phone] Care Team Providers Name Role Phone Connie Yeboah MD Primary Care Physician Unavailable Payers Type Date Identification Numbers Payment Provider Subscriber Commercial Effective: Policy Number: [id number] [facility] Cristina Charles 2012 PayID: [id number] [address] [place] [address] Problems Date Description Provider Status Onset: 07/27/2014 Palpitations Blayne Dominguez M.D., [facility], Active [facility] Onset: 07/27/2014 Paroxysmal supraventricular Blayne Dominguez M.D., [facility], Active tachycardia [facility] Onset: 12/14/2014 Arthralgia of [...] With Boyfriend 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 [...] Form Strength Qnty SIG Indications Ordering Provider Paroxetine Active Tablets 20mg 60tabs 1 by mouth F41.9 Hank HCL 018 every day TREVON Lopez Systane Ultra Active Solution 0.4-0.3% 8ml 1 drop M35.01 Zsofia 017 each eye Osmel, twice [employer] SUPERVIS[employer] daily for dry eyes Xeljanz XR Active Tablets ER 11mg 30tabs 1 by mouth M06.09 Zsofia 017 24HR every day Osmel, Start on [employer]QUET SUPERVISOR 08/27/17 Ranitidine Active Tablets 150mg 60tabs one by K21.9 Hank HCL 017 mouth TREVON Lopez twice a day as needed Héctor Med Active 1units As Hank Sinus 016 directed TREVON Lopez Irrigation Kit Voltaren Active Gel 1% 100gm apply to M25.571 Zsofia 016 affected Osmel, area twice [employer]ANQUET SUPERVISOR a day, as needed M25.551 M25.562 Fluticasone 09/23/2015 Active Suspension 50mcg/Act 48units instill Connie Propionate 1 sprays Edilia, into M.D. each nostril once daily Diltiazem HCL ER 06/17/2015 Active Caps ER 24HR 240mg 90caps 1 tab by Connie Coated Beads mouth Edilia, every M.D. day. Hydroxychloroquine 06/01/2015 Active Tablets 200mg 180tabs 2 tabs Z Zsofia Sulfate by mouth 7 Osmel, daily 9 [employer]ANQUET SUPERVISOR . 8 9 9 M06.09 Gas Relief Extra Active Capsules as needed Unknown Strength Deblitane Active Tablets 0.35 take 1 Unknown mg tablet by mouth once daily Daily Womens Active Tablets 1 daily Unknown Health Formula Vitamin D3 Adult Active Chewtabs 1000 2 by mouth Unknown Gummies Unit every day otc Venlafaxine HCL 03/22/2018 - Hx Caps ER 24HR 37.5 60ca one cap once F41. Hank Lopez, ER 03/25/2018 mg ps daily. If 9 CATALYTIC CONVERTER OPERATOR HELPER tolerted may increase to 2 caps daily after one week. Duloxetine HCL 03/20/2018 - Hx Caps DR Part 30mg 60ca 1 by mouth F41. Hank Lopez, 03/22/2018 ps every day 9 CATALYTIC CONVERTER OPERATOR HELPER for one week and then increase to two capsules daily. Buspirone HCL 03/07/2018 - Hx Tablets 5mg 60ta 1 by mouth F41. Hank Lopez, 03/20/2018 bs twice a day. 9 CATALYTIC CONVERTER OPERATOR HELPER May increase by 2.5mg bid every 3 days. Do not exceed 15mg bid. Prednisone 08/03/2017 - Hx Tablets 5mg 90ta Not Taking-- M06. Zsofia 01/03/2018 bs take 4 tabs 09 Osmel, [employer] SUPERVISOR once dly for 1 wk 3 tabs once dly for 1 week 2 tabs once daily for 1 wk then 1 tab once dly Paroxetine HCL 05/09/2017 - Hx Tablets 40mg 30ta 1 by mouth F41. Hank Lopez, 06/19/2017 bs every day 9 CATALYTIC CONVERTER OPERATOR HELPER F43.23 Simponi Aria 03/15/2017 - Hx Solution 50mg/4ML 4ml 2 mg/kg iv M06.09 Zsofia 08/03/2017 infusion weeks Osmel, [employer] SUPERVISOR 0 and 4, then every 8 weeks thereafter. Z79.899 Paroxetine HCL 12/29/2016 - Hx Tablets 20mg 30tabs 1 tablet F41.Any Lopez, 05/09/2017 daily CATALYTIC CONVERTER OPERATOR HELPER F43.23 Hydroxyzine 12/29/2016 - Hx Capsules 25mg 60caps 1-2 caps by F41.Any Lebronph Pamoate 06/21/2017 mouth four John, CATALY[employer] CONVERTER OPERATOR HELPER times a day as needed for anxiety Lidocaine 12/29/2016 - Hx Ointment 5% 35.440gm apply to M89.8x8 Hank 03/07/2018 painful John, CATALYTIC CONVERTER OPERATOR HELPER areas three times a day as needed. Doxycycline 12/12/2016 - Hx Capsules 100mg 20caps one tablet Hank Hyclate 12/22/2016 twice daily John, CATALYTIC CONVERTER OPERATOR HELPER for 10 days. Paroxetine HCL 10/12/2016 - Hx Tablets 20mg 30tabs take 1 tab F41.9 Hank 12/29/2016 daily John, CATALYTIC CONVERTER OPERATOR HELPER F43.23 Levofloxacin 08/16/2016 - Hx Tablets 500mg 10tabs one by mouth [place] John, 08/26/2016 daily for 10 CATALYTIC CONVERTER OPERATOR HELPER days Azithromycin 07/27/2016 - Hx Tablets 250mg 6tabs 2 tabs by [place] John, 07/27/2016 mouth every CATALYTIC CONVERTER OPERATOR HELPER day x1 day, 1 tab by mouth every day x 4 days Doxycycline 07/27/2016 - Hx Tablets 100mg 2tabs [facility], Hyclate 08/16/2016 tablets CATALYTIC CONVERTER OPERATOR HELPER once. Prednisone 07/13/2016 - Hx Tablets 5mg 30tabs 2 by mouth M06.0 Zsofia 09/07/2016 every day 9 Osmel [facility] Z79.899 Humira Pen 07/13/2016 - Hx PNKT 40mg/0.8ML 2units inject 40 mg M06.09 Zsofia 03/15/2017 subcutaneously Osmel, every other week [facility] Z79.899 Omeprazole 05/18/2016 - Hx Capsules 20mg 30caps Not Taking R10.9 Mark, 11/27/2016 MD Reuben Omeprazole 02/21/2016 - Hx Capsules 40mg 30capganesh Discontinued R10.9 Hank 11/27/2016 TREVON Lopez Carafate 02/18/2016 - Hx Suspension 1GM/10 420ml 10 milliliters R10.9 Hank 05/25/2016 ML three times John, CAT[employer] CONVERTER OPERATOR HELPER daily before meals Zantac 75 02/18/2016 - Hx Tablets 75mg 60tabs one tablet bid R10.9 Hank 05/25/2016 prn TREVON Lopez Omeprazole 02/11/2016 - Hx Capsules DR 20mg 30caps 1 by mouth R10.9 Hank 02/21/2016 once daily John, [employer] CONVERTER OPERATOR HELPER Escitalopram 10/13/2015 - Hx Tablets 20mg 90tabs take 1 tablet F41.9 Yves E. Oxalate 11/27/2016 by mouth every Iram, day M.DLala Meclizine HCL 08/20/2015 - Hx Tablets 25mg 30tabs take one R42 Hank 09/22/2015 tablet every 6 John, CATALY[employer] CONVERTER OPERATOR HELPER hours as needed for dizziness Escitalopram 07/13/2015 - Hx Tablets 10mg 90tabs 1 by mouth F41.9 Connie Oxalate 10/13/2015 every day Kyle Yeboah Voltaren 06/01/2015 - Hx Gel 1% 1tubes apply to 719.46 Zsofia 07/13/2015 affected area Osmel, twice a day, [employer] SUPERVISOR as needed Methotrexate 03/22/2015 - Hx Tablets 2.5mg 30tabs 6 tabs 1x per 714.0 Joel 07/13/2015 week (not Endo, taking, M.D. stomach upset) Folic Acid 03/22/2015 - Hx Tablets 1mg 30tabs Not Taking M06.9 Zsofia 11/27/2016 Osmel, [employer] SUPERVISOR Diclofenac 01/29/2015 - Hx Tablets DR 75mg 60tabs 1 by mouth 719.49 Joel Sodium 03/22/2015 twice a day Kyle Garcia Metoprolol 10/29/2012 - Hx Tablets ER 25mg 180tabs 1 by mouth Blayne Succinate ER 12/13/2014 24HR twice a day Arabella Dominguez., [facility] Lexapro - Hx 10mg daily Unknown 07/16/2013 [...] CPT Code Status Date Vaccine Lot # 34950 Given 06/21/2017 Influenza Virus Vaccine, Quadrivalent, Split, [id number] Preservative Free 75170 Given 07/24/2016 Influenza Virus Vaccine, Quadrivalent, Split [id number] Virus, Im Use 86739 Given 07/13/2015 Tdap - Tetanus/Diptheria/Acellular Pertussis [id number] 82069 Given 08/25/2010 Tdap - Tetanus/Diptheria/Acellular Pertussis [id number] Refused 07/13/2015 Influenza Virus Vaccine, Quadrivalent, Split, Preservative Free Vital Signs Date Vital Result Comment 03/25/2018 Height 67.75 inches 5'7.75" Weight 148.75 lb Heart Rate 103 /min BP Systolic 121 mmHg BP Diastolic 81 mmHg Body Temperature 98.2 F O2 % BldC Oximetry 97 % BMI (Body Mass Index) 22.8 kg/m2 03/20/2018 Height 67.75 inches 5'7.75" Weight 154.00 [...] Result H/L Range Note CBC Auto Diff 03/23/2018 White Blood Count 9.2 10^3/uL 3.5-10.8 Red Blood Count 4.68 10^6/uL 4.00-5.40 Hemoglobin 14.5 g/dL 12.0-16.0 Hematocrit 43 % 35-47 Mean Corpuscular Volume 92 fL 80-97 Mean Corpuscular Hemoglobin 31 pg 27-31 Mean Corpuscular HGB Conc 34 g/dL 31-36 Red Cell Distribution Width 13 % 10.5-15 Platelet Count 237 10^3/uL 150-450 Mean Platelet Volume 9.5 um3 7.4-10.4 Abs Neutrophils 7.2 10^3/uL 1.5-7.7 Abs Lymphocytes 1.0 10^3/uL 1.0-4.8 Abs Monocytes 0.9 10^3/uL High 0-0.8 Abs Eosinophils 0 10^3/uL 0-0.6 Abs Basophils 0.1 10^3/uL 0-0.2 Abs Nucleated RBC 0 10^3/uL Granulocyte % 78.3 % 38-83 Lymphocyte % 11.1 % Low 25-47 Monocyte % 9.6 % High 0-7 Eosinophil % 0.3 % 0-6 Basophil % 0.7 % 0-2 Nucleated Red Blood Cells % 0 Inr/Protime 03/23/2018 Inr 0.96 0.77-1.02 Laboratory test finding 03/23/2018 Partial Thrombo Time 29.9 seconds 26.0 -36.3 PTT D Dimer Quantitative < 200 ng/mL Less Than 230 1 Lactic Acid 0.7 mmol/L 0.5-2.0 2 B-Type Natriuretic Peptide BNP 19 pg/mL 3 Comp Metabolic Panel 03/23/2018 Sodium 134 mmol/L Low 135-145 Potassium 3.4 mmol/L Low 3.5-5.0 Chloride 99 mmol/L Low 101-111 Co2 Carbon Dioxide 23 mmol/L 22-32 Anion Gap 12 mmol/L High 2-11 Glucose 102 mg/dL High 70-100 Blood Urea Nitrogen 9 mg/dL 6-24 Creatinine 0.75 mg/dL 0.51-0.95 BUN/Creatinine Ratio 12.0 8-20 Calcium 9.5 mg/dL 8.6-10.3 Total Protein 7.4 g/dL 6.4-8.9 Albumin 4.6 g/dL 3.2-5.2 Globulin 2.8 g/dL 2-4 Albumin/Globulin Ratio 1.6 1-3 Total Bilirubin 0.70 mg/dL 0.2-1.0 Alkaline Phosphatase 35 U/L 34-104 Alt 27 U/L 7-52 Ast 23 U/L 13-39 Egfr Non- 84.7 >60 Egfr 109.0 >60 4 Laboratory test finding 03/23/2018 Magnesium 2.1 mg/dL 1.9-2.7 Lipase 23 U/L 11.0-82.0 Creatine Kinase(CK) 95 U/L 10-223 C Reactive Protein 1.82 mg/L < 5.00 5 Troponin-I (TnI) 0.00 ng/mL <0.04 CKMB 03/23/2018 CKMB ng/mL 0.7 ng/mL 0.6-6.3 Laboratory test finding 03/23/2018 HCG < 0.60 mIU/mL 6 Acetaminophen < 15 g/mL 7 Alcohol < 10 mg/dL <10 Salicylate < 2.50 mg/dL <30 TSH (Thyroid Stim Horm) 1.18 mcIU/mL 0.34-5.60 Laboratory test finding 03/08/2018 Lyme Disease Serology Negative Negative 8 Vitamin B12 1025 pg/mL High 180-914 9 CBC Auto Diff 03/08/2018 White Blood Count [...] Cells % 0.1 Laboratory test finding 03/08/2018 Magnesium 1.9 mg/dL 1.9-2.7 TSH (Thyroid Stim Horm) 1.93 mcIU/mL 0.34-5.60 Comp Metabolic Panel 03/08/2018 Sodium 136 mmol/L [...] Egfr Non- 87.4 >60 Egfr 112.4 >60 10 CBC Auto Diff 01/01/2018 White Blood Count [...] Egfr Non- 75.4 >60 Egfr 97.0 >60 11 Laboratory test finding 01/01/2018 Erythrocyte Sed Rate 2 mm/Hr 0-14 C Reactive Protein < 1.00 mg/L < 5.00 12 Lipid Profile (Trig/Chol/HDL) 01/01/2018 Triglycerides 74 mg/dL 13 Cholesterol 171 mg/dL 14 HDL Cholesterol 76.1 mg/dL 15 LDL Cholesterol 80 mg/dL 16 Laboratory test finding 12/27/2017 Surgical Pathology SEE RESULT BELOW 17 Laboratory test finding 12/06/2017 Cytology SEE RESULT BELOW 18 CBC Auto Diff 06/27/2017 White Blood Count [...] Egfr Non- 97.0 >60 Egfr 124.7 >60 19 Laboratory test finding 06/27/2017 C Reactive Protein 8.73 mg/L High < 5.00 20 Comp Metabolic Panel 05/02/2017 Sodium 135 mmol/L [...] Egfr Non- 87.9 >60 Egfr 113.0 >60 21 Laboratory test finding 05/02/2017 C Reactive Protein 8.75 mg/L High < 5.00 22 CBC Auto Diff 05/02/2017 White Blood Count [...] Egfr Non- 95.4 >60 Egfr 122.6 >60 23 Laboratory test finding 04/04/2017 C Reactive Protein 5.60 mg/L High < 5.00 24 CBC Auto Diff 04/04/2017 White Blood Count [...] Reactive Protein 7.36 mg/L High < 5.00 25, 26 finding Comp Metabolic Panel 11/27/2016 Sodium 137 mmol/L 133-145 25 Potassium 4.0 mmol/L 3.5-5.0 25 Chloride 101 mmol/L 101-111 25 Co2 Carbon Dioxide 27 mmol/L 22-32 25 Anion Gap 9 mmol/L 2-11 25 Glucose 80 mg/dL 70-100 25 Blood Urea Nitrogen 14 mg/dL 6-24 25 Creatinine 0.80 mg/dL 0.51-0.95 25 BUN/Creatinine Ratio 17.5 8-20 25 Calcium 9.4 mg/dL 8.6-10.3 25 Total Protein 7.1 g/dL 6.4-8.9 25 Albumin 4.4 g/dL 3.2-5.2 25 Globulin 2.7 g/dL 2-4 25 Albumin/Globulin Ratio 1.6 1-3 25 Total Bilirubin 0.60 mg/dL 0.2-1.0 25 Alkaline Phosphatase 68 U/L 34-104 25 Alt 28 U/L 7-52 25 Ast 32 U/L 13-39 25 Egfr Non- 79.0 >60 25 Egfr 101.7 >60 25, 27 CBC Auto Diff 11/27/2016 White Blood Count 10.3 10^3/uL 3.5-10.8 25 Red Blood Count 4.84 10^6/uL 4.0-5.4 25 Hemoglobin 14.3 g/dL 12.0-16.0 25 Hematocrit 44 % 35-47 25 Mean Corpuscular Volume 90 fL 80-97 25 Mean Corpuscular Hemoglobin 30 pg 27-31 25 Mean Corpuscular HGB Conc 33 g/dL 31-36 25 Red Cell Distribution Width 14 % 10.5-15 25 Platelet Count 244 10^3/uL 150-450 25 Mean Platelet Volume 10 um3 7.4-10.4 25 Abs Neutrophils 6.6 10^3/uL 1.5-7.7 25 Abs Lymphocytes 2.5 10^3/uL 1.0-4.8 25 Abs Monocytes 0.9 10^3/uL High 0-0.8 25 Abs Eosinophils 0.2 10^3/uL 0-0.6 25 Abs Basophils 0.1 10^3/uL 0-0.2 25 Abs Nucleated RBC 0 10^3/uL 25 Granulocyte % 63.9 % 38-83 25 Lymphocyte % 24.4 % Low 25-47 25 Monocyte % 8.8 % 1-9 25 Eosinophil % 2.0 % 0-6 25 Basophil % 0.9 % 0-2 25 Nucleated Red Blood Cells % 0 25 Laboratory test finding 11/27/2016 Erythrocyte Sed Rate 9 mm/Hr 0-14 25 , 28 CMP Panel 09/07/2016 Albumin <pending> Alt - [...] 07/13/2016 M tuberculosis by Quantiferon Negative Negative 29 TB Ag minus Nil Result 0.03 IU/mL TB Mitogen minus Nil Result > 10.00 IU/mL TB Nil Result 0.01 IU/mL 30 Hepatitis Acute Panel 07/13/2016 Hepatitis C Antibody Nonreactive Nonreactive Hepatitis A AB Igm Nonreactive Nonreactive Hepatitis B Core AB Igm Nonreactive Nonreactive Hepatitis B Surface Ag Nonreactive Nonreactive Laboratory test 07/13/2016 C Reactive Protein 17.75 mg/L High < 5.00 31 finding Laboratory test 05/24/2016 Clotest SEE RESULT 32, 33 finding BELOW Laboratory test 05/24/2016 Surgical Interface SEE RESULT 34, 35 finding Order BELOW CBC W/Auto Diff 05/23/2016 [...] Egfr Non- 74.1 >60 Egfr 95.3 >60 36 Laboratory test finding 05/23/2016 Erythrocyte Sed Rate 12 mm/Hr 0-14 C Reactive Protein 11.66 mg/L High < 5.00 37 Laboratory test finding 02/14/2016 Helico Pylori Antigen- Negative Negative 38 Stool CBC Auto Diff 02/11/2016 White Blood [...] Egfr Non- 84.3 >60 Egfr 108.4 >60 39 Comp Metabolic Panel 08/20/2015 Sodium 136 mmol/L [...] Egfr Non- 88.8 >60 Egfr 114.1 >60 40 CBC Auto Diff 08/20/2015 White Blood Count [...] 0.34-5.60 Lipid Profile 07/14/2015 Triglycerides 132 mg/dL 41 (Trig/Chol/HDL) Cholesterol 216 mg/dL 42 HDL Cholesterol 79.8 mg/dL 43 LDL Cholesterol 110 mg/dL 44 CBC Auto Diff 04/21/2015 White Blood Count [...] Egfr Non- 88.8 >60 Egfr 114.1 >60 45 Laboratory test finding 04/21/2015 C Reactive Protein 9.94 mg/L High < 5.00 46 Erythrocyte Sed Rate 12 mm/Hr 0-14 CBC [...] Egfr Non- 90.2 >60 Egfr 116.0 >60 47 Laboratory test finding 02/01/2015 C Reactive Protein 10.84 mg/L High < 5.00 48 Erythrocyte Sed Rate 11 mm/Hr 0-14 Hla B27 02/01/2015 Hla B27 Negative 49 Hla B27 Interp See Comment 50 Laboratory test finding 02/01/2015 Rheumatoid Factor <15 IU/mL <15 51 Cyclic Citrullinated Pept IgG <15.6 U 52 CBC Auto Diff 12/18/2014 White Blood Count [...] Present No bands detecte <SEE NOTE> kDa 53 Lyme Disease Interpretation See Comment 54 Laboratory test finding 12/18/2014 C Reactive Protein 17.08 mg/L High < 5.00 55 Erythrocyte Sed Rate 14 mm/Hr 0-14 Rheumatoid Factor <15 IU/mL <15 56 Lyme Disease Serology Negative Negative 57 1 Please note: The following may produce a false positive D Dimer test: - Rheumatoid factor greater than 60 IU/ml - Plasma hemoglobin greater than 0.05 gm/dl - Bilirubin greater than 50 mg/dl - Lipids greater than 1000 mg/dl - FDP greater than 20 ug/ml 2 [facility] Severe Sepsis and Septic Shock Management Bundle Measure requires all lactic acids initially measuring >2.0 mmol/L be repeated. 3 >100 to <200 pg/mL: likely compensated congestive heart failure (CHF) 200 to 400 pg/mL: likely moderate CHF >400 pg/mL: likely moderate to severe CHF 4 Because ethnic data is not always [...] (or dialysis) 5 Acute inflammation: >10.00 6 <5.0 Negative 5.0 - 25.0 Indeterminate (Repeat testing recommended after 72 hours) >25.0 Positive Perimenopausal women can display HCG levels of up to 20 mIU/mL 7 Therapeutic concentration: <50 ug/mL Toxic concentration: >120 ug/mL 8 No evidence of antibodies to B. burgdorferi detected. False negative results may occur in recently infected patients (<=2 weeks) due to low or undetectable antibody levels to B. burgdorferi. If recent exposure is suspected, a second sample should be collected and tested in 2-4 weeks. Test Performed by: [facility] [address] [place] [address] 9 Normal Range 180 to 914 Indeterminate Range 145 to 180 Deficient Range <145 10 Because ethnic data is not always readily [...] 15-29 5 Kidney failure <15 (or dialysis) 11 Because ethnic data is not always [...] (or dialysis) 12 Acute inflammation: >10.00 13 Desirable: <150 Borderline High: 150-199 High: 200-499 Very High: >500 14 Desirable: <200 Borderline High: 200-239 High: >239 15 Low: <40 Desirable: 40-60 High: >60 16 Desirable: <100 Near Optimal: 100-129 Borderline High: 130-159 High: 160-189 Very High: >189 17 SEE RESULT BELOW Name: CRISTINA CHARLES : [address]: Farzana Gayle MD Acct: [id number] Unit: [id number] AGE: 42 Location: [facility] Re12/27/17 SEX: F Status: REG REF SPEC: [id number] [place]: 12/27/17-[address] [facility] [address]: Farzana Gayle MD REQ: [id number] RECD: 12/27/171542 STATUS: MATY GARCIA DR: Connie Yeboah MD _ ORDERED: LEVEL 4, IMMUNO-FIRST COMMENTS: [id number] FINAL DIAGNOSIS Uterus, endocervix, curettage: -- Detached [...] Signed (signature on file) Tessie Green MD 1244 END OF REPORT DEPARTMENT OF PATHOLOGY, [address] [place] [address] Bo Ng M.D. Director [facility] # [id number] 18 SEE RESULT BELOW Name: JAYANTKETTYCRISTINA Santoyo : [address]: Farzana Gayle MD Acct: [id number] Unit: [id number] AGE: 42 Location: [facility] Re12/06/17 SEX: F Status: REG REF SPEC: [id number] [place]: 12/06/[address] [facility] [address]: Farzana Gayle MD REQ: [id number] RECD: 12/06/17 STATUS: MATY GARCIA DR: Connie Yeboah MD _ ORDERED: TP IMAGE ANAL, DOOR TO DOOR SELLING AGENT PHYS INTERP, HPV/Thin Prep COMMENTS: [id number] EPITHELIAL CELL ABNORMALITIES Low grade squamous intraepithelial [...] was evaluated with the assistance of the HipWayPrep Test Imaging System. Due to cytologic findings at the conference concierge microscope, comprehensive manual rescreening by a Rn Oncology may be required. The Pap Smear is [...] years. END OF REPORT DEPARTMENT OF PATHOLOGY, [address] [place] [address] Bo Ng M.D. Director [facility] # [id number] 19 Because ethnic data is not always readily [...] 15-29 5 Kidney failure <15 (or dialysis) 20 Acute inflammation: >10.00 21 Because ethnic data is not always readily [...] 15-29 5 Kidney failure <15 (or dialysis) 22 Acute inflammation: >10.00 23 Because ethnic data is not always readily [...] 15-29 5 Kidney failure <15 (or dialysis) 24 Acute inflammation: >10.00 25 STANDING ORDER VALID 09/07/16-03/08/17 26 Acute inflammation: >10.00 27 Because ethnic data is not always readily [...] 15-29 5 Kidney failure <15 (or dialysis) 28 STANDING ORDER VALID 09/07/16-03/08/17 29 No interferon-gamma response to M. tuberculosis antigens was detected. Infection with M. tuberculosis is unlikely. A negative result alone does not exclude infection with M. tuberculosis. For detailed information regarding test interpretation see: [email or web address] 30 Test Performed by: [facility] [place] [address] Waybill Clerk: Venkatesh Cruz II, M.D., Ph.D. 31 Acute inflammation: >10.00 32 [id number] 33 SEE RESULT BELOW Name: CRISTINA CHARLES : [address]: Reuben Flores MD Acct: [id number] Unit: [id number] AGE: 40 Location: [facility] Re05/24/16 SEX: F Status: REG REF SPEC: [id number] [place]: 05/24/16-[address] [facility] [address]: Reuben Flores MD REQ: [id number] RECD: 05/24/16 STATUS: PETEY GARCIA DR: Connie Yeboah MD _ SOURCE: GAS ANTRUM SPDESC: ORDERED: Clotest COMMENTS: [id number] Procedure Result Reported Site Clotest Final 05/25/16716 ML Clotest Negative * ML - MAIN LAB ([facility]) . END OF REPORT * ML=Testing performed at Main Lab DEPARTMENT OF PATHOLOGY, [address] [place] [address] Bo Ng M.D. Director [facility] # [id number] 34 [id number] SEE RESULT BELOW Name: CRISTINA CHARLES : [address]: Reuben Flores MD Acct: [id number] Unit: [id number] AGE: 40 Location: [facility] Re05/24/16 SEX: F Status: REG REF SPEC: [id number] WAG[place]: 05/24/16-[address]: Reuben Flores MD REQ: [id number] RECD: 05/24/16 STATUS: MATY GARCIA DR: Connie Yeboah MD _ ORDERED: LEVEL IV COMMENTS: [id number] FINAL DIAGNOSIS Duodenum, third portion, biopsy: -- [...] END OF REPORT * ML=Testing performed at [facility] Lab DEPARTMENT OF PATHOLOGY, [address] [place] [address] Bo Ng M.D. Director [facility] # [id number] 36 Because ethnic data is not always [...] 5 Kidney failure <15 (or dialysis) 37 Acute inflammation: >10.00 38 Test Performed by: [address] [address] Waybill Clerk: Venkatesh Cruz II, M.D., Ph.D. 39 Because ethnic data is not always readily [...] 15-29 5 Kidney failure <15 (or dialysis) 40 Because ethnic data is not always [...] 5 Kidney failure <15 (or dialysis) 41 Desirable <150 Borderline high 150-199 High 200-499 Very High >500 42 Desirable <200 Borderline high 200-239 High >239 43 Low <40 Desirable: 40-60 High: >60 44 Desirable: <100 mg/dL Near Optimal: 100-129 mg/dL Borderline High: 130-159 mg/dL High: 160-189 mg/dL Very High: >189 mg/dL 45 Because ethnic data is not always readily [...] 15-29 5 Kidney failure <15 (or dialysis) 46 Acute inflammation: >10.00 47 Because ethnic data is not always readily [...] 15-29 5 Kidney failure <15 (or dialysis) 48 Acute inflammation: >10.00 49 REFERENCE VALUE Not Applicable 50 RESULT: HLA-B27 antigen was not detected. ADDITIONAL INFORMATION Method: Flow Cytometry Performing Laboratory CLIA# [id number] Test Performed by: [place] [address] Waybill Clerk: Venkatesh Cruz II, M.D., Ph.D. 51 Test Performed by: [place] [address] Waybill Clerk: Venkatesh Cruz II, M.D., Ph.D. 52 REFERENCE VALUE <20.0 (Negative) Test Performed by: [place] [address] Waybill Clerk: Venkatesh Cruz II, M.D., Ph.D. 53 No bands detected 54 Specific serologic response to B. burgdorferi infection [...] screening test (e.g., EIA). Test Performed by: [place] [address] Waybill Clerk: Venkatesh Cruz II, M.D., Ph.D. 55 Acute inflammation: >10.00 56 Test Performed by: [place] [address] Waybill Clerk: Venkatesh Cruz II, M.D., Ph.D. 57 Serologic response to B. burgdorferi infection is not detected, but cannot rule out early infection during which low or undetectable antibody levels to B. burgdorferi may be present. If clinically indicated, a new serum specimen should be submitted in 7-14 days. Test Performed by: [address] [address] Waybill Clerk: Venkatesh Cruz II, M.D., Ph.D. Procedures Date CPT Code Description Status 03/17/2018 62420 Holter Monitor Review (24 hr)dr review & interp only Completed 03/11/2018 33107 ECG Monitor/Recording W/Visual Superimposition Scanning Completed 03/07/2018 31120 EKG Tracing & Interpretation Completed 05/11/2017 Mammogram Completed 02/11/2015 21464 EKG Tracing & Interpretation Completed 07/27/2014 51001 EKG Tracing & Interpretation Completed 07/16/2013 62117 EKG Tracing & Interpretation Completed Encounters Type Date Location Provider CPT E/M Dx Office Visit 03/07/2018 4:20p [facility] [place] [address] F41.9 [place] R00.2 R53.83 Office Visit 01/03/2018 8:30a [facility], [address] M06.09 [facility] [employer] SUPERVISOR M35.01 Z79.899 R87.612 Office Visit 08/03/2017 1:30p [facility] [employer]ET SUPERVISOR [address]674 M06.09 Of [facility] M35.01 Z79.899 Z13.220 Office Visit 06/21/2017 8:00a [facility], [address]57 M06.09 [facility] [employer]QUET SUPERVISOR Z79.899 Z23 Office Visit 06/19/2017 11:40a [facility] [place] [address] F41.9 [place] K21.9 Office Visit 03/15/2017 8:00a [facility], [address]998 M06.09 [facility] B[employer]QU[employer] SUPERVISOR Z79.899 Office Visit 12/29/2016 9:00a [facility] Internal [place] [address] F41.9 Etna M89.8x8 Office Visit 11/27/2016 8:00a [facility] Internal Medicine Jalil Bolivar [employer] SUPERVISOR 96297 M06.09 - Etna F43.23 M70.62 Z79.899 Office Visit 10/12/2016 9:00a [facility] [place] [address] F41.9 Etna Office Visit 09/07/2016 8:30a [facility] Jalil Bolivar 51721 M06.09 [facility] [employer] SUPERVISOR M70.62 Z79.899 Office Visit 07/24/2016 4:00p [facility] [place] [address] J01.90 Etna Z23 Office Visit 07/13/2016 8:30a [facility] Jalil Bolivar 10026 M06.09 [facility] [employer] SUPERVISOR M25.571 M25.551 M25.562 Z79.899 Office Visit 05/25/2016 9:00a [facility] Jalil Bolivar, 75507 M06.09 [facility] BANQUET SUPERVISOR Z79.899 Office Visit 02/18/2016 9:40a [facility] [place] [address] R10.9 Etna R10.13 Office Visit 02/11/2016 2:20p [facility] [place] [address] R04.2 Etna R10.9 Office Visit 02/08/2016 2:20p [facility] Blayne Dominguez M.D., 83605 I47.1 [facility] AT [facility] Office Visit 10/13/2015 1:40p [facility] Internal Medicine - Connie Yeboah, 06200 F41.9 Etna M.DLala Office Visit 09/22/2015 2:40p [facility] Internal Medicine - Connie Yeboah 14070 F41.9 Etna M.DLala Office Visit 08/20/2015 10:00a [facility] [place] [address] R42 [place] F41.9 Office Visit 07/13/2015 1:10p [facility] Internal Medicine Connie Yeboah M.D. 13686 F41.9 - Etna Z13.220 Z23 Z79.899 Office Visit 06/01/2015 1:30p [facility] Jalil BolivarFREDDY 03153 714.0 [facility] V58.69 719.46 Office Visit 03/22/2015 1:40p [facility] Joel Garcia M.D. 11723 714.0 Of [facility] 795.79 V58.69 Office Visit 02/11/2015 1:00p [facility] Blayne Domniguez M.D., 27414 785.1 [facility] AT [facility] 427.0 Office Visit 01/29/2015 11:00a [facility] Joel Garcia 23008 719.49 Of Chidi Wright 714.0 795.79 Office Visit 12/14/2014 10:45a [facility] Gabe Celis, 11635 719.47 C.M.ALala Wright 845.00 714.0 Office Visit 07/27/2014 3:40p [facility] Blayne Dominguez M.D., 55341 785.1 [facility] AT [facility] 427.0 Office Visit 07/16/2013 2:45p [facility] Blayne Dominguez M.D., 11781 785.1 [facility] AT [facility] Office Visit 01/13/2013 8:15a [facility] Suraj Dominguez M.D., 97052 427.0 [facility] AT [facility] 785.1 Office Visit 11/13/2012 4:00p [facility] Blayne Dominguez M.D., 37518 427.0 [facility] AT [facility] Plan of Care Future Appointment(s):04/26/2018 8:40 am - Hank Lopez NP at [facility] Internal Medicine - Axhnqkkbs06/25/2018 8:30 am - FREDDY Bishop at [facility]03/25/2018 - Hank Lopez NPF41.9 Anxiety disorder, unspecifiedNew Medication:Paroxetine HCL 20 mgComments:I have restarted the Paxil you were on previously. Start taking 20mg once daily. You can increase to40mg after a week. Continue seeing your counselor and meditating. Please call me with issues or concerns.Follow up:Reschedule 04/17 out to 4-6 weeks
[2018-03-29 15:17] LABS: Urine Appearance Cloudy; Urine Blood Negative (Negative); Urine Color Yellow; Urine Ketones 1+ (Negative); Urine Protein Negative (Negative); Urine Specific Gravity 1.012 (1.010-1.030); Urine Urobilinogen Negative (Negative)
[2018-03-29 15:35] LABS: ABS Basophils 0.1 10^3/ul (0-0.2); ABS Eosinophils 0.1 10^3/ul (0-0.6); ABS Lymphocytes 1.6 10^3/ul (1.0-4.8); ABS Monocytes 1.3 10^3/ul (0-0.8); ABS Neutrophils 4.9 10^3/ul (1.5-7.7); ABS Nucleated RBC 0 10^3/ul; Eosinophil % 0.7 % (0-6); Hematocrit 41 % (35-47); Hemoglobin 13.8 g/dl (12.0-16.0); Lymphocyte % 20.7 % (25-47); Mean Corpuscular HGB Conc 34 g/dl (31-36); Mean Corpuscular Hemoglobin 31 pg (27-31); Mean Corpuscular Volume 91 fL (80-97); Mean Platelet Volume 8.8 um3 (7.4-10.4); Nucleated Red Blood Cells % 0.1; Platelet Count 263 10^3/ul (150-450); Red Blood Count 4.47 10^6/ul (4.00-5.40); Red Cell Distribution Width 13 % (10.5-15); White Blood Count 7.9 10^3/ul (3.5-10.8)
[2018-03-29] MEDS ORDERED: Potassium Chlor TAB* 20 MEQ TAB.ER PO ONE (16:27)
[2018-03-29] MEDS ORDERED: NS 0.9% 1000 ML* 1,000 ML IV ONE (16:28)
--- NOTE | 2018-03-29 19:25 | ED ---
Birgit Martinez Rebecca, scribed for Sandra Ray MD on 03/29/18 at 1507 . Psychiatric Complaint - HPI Summary HPI Summary: Pt is a 42 y/o F accompanied by boyfriend, Jana, who presents to ED after being referred by Mary An for a MHE. Pt c/o severe anxiety for which she has been following up with Hank Lopez for multiple weeks. She has tried 2 SSRIs , both of which had she had adverse reactions to, and started Paxil 3 days ago. Jana believes the sx may have been triggered by a "major issue at work" 3 weeks ago which "put her into a tailspin." Confirms she has a high stress job. Additionally c/o palpitations characterized as fast, insomnia, nausea and decreased appetite which she believes is secondary to Paxil. Tried 3 Gabapentin 2 nights ago which helped her insomnia, but last night it did not help. Has not tried any OTC medications to try to alleviate insomnia. Denies HIs, SIs, stating "I don't want to " and that Jana states the pt is "having very dark thoughts." PMHx RA (on Xeljanz and Plaquenil), tachycardia (hospice consultant is Dr. Dominguez, on Cartia) anxiety, depression, and panic disorder and was seen on 03/23 (6 days ago) by [facility] for similar complaints. Mary An called Sekou in the flex unit today. - History Of Current Complaint Chief Complaint: EDMentalHealth Time Seen by Provider: 03/29/18 14:59 Hx Obtained From: Patient Hx Last Menstrual Period: 1 WEEK AGO Onset/Duration: Lasting Weeks - 3 weeks, Still Present Severity Currently: Severe Character: Anxious Aggravating Factor(s): Recent Stress - Job Alleviating Factor(s): Medication - Insomnia - Gabapentin worked 2 nights ago, not last night Associated Signs And Symptoms: Positive: Sleep Disturbance - Insomnia Related History: Positive For: Prior Psychiatric Issues - Anxiety, depression, panic disorder Has Suicidal: Denies: Thoughts Has Homicidal: Denies: Thoughts - Allergies/Home Medications Allergies/Adverse Reactions: Allergies Allergy/AdvReac Type Severity Reaction Status Date / Time Penicillins Allergy Intermediate Hives Verified 03/29/18 21:42 pseudoephedrine Allergy Tachycardia Verified 03/29/18 21:42 seafood Allergy Intermediate Nausea And Uncoded 06/27/17 09:40 Vomiting Home Medications: Home Medications Gabapentin CAP(*) [Neurontin 100 mg CAP(*)] 100 - 300 mg PO QPM 03/29/18 [ History Confirmed 03/29/18] Multivitamins/Minerals TAB* [Theragran/minerals TAB*] 1 tab PO DAILY 03/29/18 [ History Confirmed 03/29/18] PARoxetine HCL TAB* [Paxil TAB*] 20 mg PO DAILY 03/29/18 [History Confirmed ] Ranitidine TAB (NF) [Zantac TAB (NF)] 150 mg PO BID 03/29/18 [History Confirmed 03/29/18] Tofacitinib Citrate [Xeljanz Xr] 11 mg PO DAILY 03/29/18 [History Confirmed ] dilTIAZem HCl [Cartia Xt] 240 mg PO DAILY 03/29/18 [History Confirmed 03/29/18] PMH/Surg Hx/FS Hx/Imm Hx Endocrine/Hematology History: Denies: Hx Diabetes, Hx Thyroid Disease Cardiovascular History: Reports: Hx Hypertension, Other Cardiovascular Problems/ Disorders - Hx tachycardia Denies: Hx Congestive Heart Failure, Hx Pacemaker/ICD Respiratory History: Denies: Hx Asthma, Hx Chronic Obstructive Pulmonary Disease (COPD) GI History: Reports: Hx Gastroesophageal Reflux Disease - PAST Hx OF ACID REFLUX , Hx Irritable Bowel - PAST Hx, NOW CONTROLLED Denies: Hx Ulcer Musculoskeletal History: Reports: Hx Rheumatoid Arthritis Sensory History: Reports: Hx Contacts or Glasses - GLASSES Denies: Hx Hearing Aid Opthamlomology History: Reports: Hx Contacts or Glasses - GLASSES Psychiatric History: Reports: Hx Anxiety - ON DAILY LEXAPRO, Hx Depression, Hx Panic Disorder - ANXIETY - Cancer History Hx Chemotherapy: No Hx Radiation Therapy: No - Surgical History Surgery Procedure, Year, and Place: ACL reconstruction on 02-06-13 LEFT KNEE. RIGHT WRIST, [facility], 2009. DEVIATED SEPTUM 2013 Hx Anesthesia Reactions: Yes - VERY SHACKY. N/V Infectious Disease History: No Infectious Disease History: Denies: Hx Hepatitis, Hx Human Immunodeficiency Virus (HIV), Traveled Outside the [place] in Last 30 Days - Family History Known Family History: Positive: Other - Depression, anxiety; NEGATIVE: Suicide Negative: Diabetes - Social History Occupation: Employed Full-time Alcohol Use: Daily Alcohol Amount: wine with dinner Substance Use Type: Reports: None Hx Tobacco Use: No Smoking Status (MU): Never Smoked Tobacco Have You Smoked in the Last Year: No Review of Systems Positive: Palpitations Positive: Nausea, Other - Decreased appetite Positive: Anxious, Other - Insomnia, NEGATIVE: SIs, HIs All Other Systems Reviewed And Are Negative: Yes Physical Exam - Summary Physical Exam Summary: Appearance: Well-appearing, no pain distress, well-nourished Skin: Warm, color reflects adequate perfusion, dry Head: Normal Head/Face inspection, atraumatic Eyes: Conjunctiva clear ENT: Normal inspection Neck: Supple, no nodes, no JVD Respiratory: Lungs clear, normal breath sounds, no respiratory distress Cardio: RRR, No murmur, pulses normal, brisk capillary refill Abdomen: Soft, nontender Bowel sounds: Present Musculoskeletal: Strength Intact/ROM intact, no calf tenderness, no edema. Psychological: States she is anxious Neuro: Alert, muscle tone normal, no focal deficit Triage Information Reviewed: Yes Vital Signs On Initial Exam: Initial Vitals Temp Pulse Resp BP Pulse Ox 98.6 F 92 20 127/93 98 03/29/18 14:47 03/29/18 14:47 03/29/18 14:47 03/29/18 14:47 03/29/18 14:47 Vital Signs Reviewed: Yes Diagnostics - Vital Signs Vital Signs Temp Pulse Resp BP Pulse Ox 03/29/18 14:47 98.6 F 92 20 127/93 98 - Laboratory Lab Results: Lab Results 03/29/18 03/29/18 03/29/18 Range/Units 15:09 15:09 15:29 WBC 7.9 (3.5-10.8) 10^3/ul RBC 4.47 (4.00-5.40) 10^6/ul Hgb 13.8 (12.0-16.0) g/dl Hct 41 (35-47) % MCV 91 (80-97) fL MCH 31 (27-31) pg MCHC 34 (31-36) g/dl RDW 13 (10.5-15) % Plt Count 263 (150-450) 10^3/ul MPV 8.8 (7.4-10.4) um3 Neut % (Auto) 62.0 (38-83) % Lymph % (Auto) 20.7 L (25-47) % [place] % (Auto) 15.9 H (0-7) % Eos % (Auto) 0.7 (0-6) % Baso % (Auto) 0.7 (0-2) % Absolute Neuts (auto) 4.9 (1.5-7.7) 10^3/ul Absolute Lymphs (auto) 1.6 (1.0-4.8) 10^3/ul Absolute Monos (auto) 1.3 H (0-0.8) 10^3/ul Absolute Eos (auto) 0.1 (0-0.6) 10^3/ul Absolute Basos (auto) 0.1 (0-0.2) 10^3/ul Absolute Nucleated RBC 0 10^3/ul Nucleated RBC % 0.1 Sodium (135-145) mmol/L Potassium (3.5-5.0) mmol/L Chloride (101-111) mmol/L Carbon Dioxide (22-32) mmol/L Anion Gap (2-11) mmol/L BUN (6-24) mg/dL Creatinine (0.51-0.95) mg/dL Est GFR ( Amer) (>60) Est GFR (Non-Af Amer) (>60) BUN/Creatinine Ratio (8-20) Glucose (70-100) mg/dL Calcium (8.6-10.3) mg/dL Total Bilirubin (0.2-1.0) mg/dL AST (13-39) U/L ALT (7-52) U/L Alkaline Phosphatase (34-104) U/L Total Protein (6.4-8.9) g/dL Albumin (3.2-5.2) g/dL Globulin (2-4) g/dL Albumin/Globulin Ratio (1-3) TSH (0.34-5.60) mcIU/mL Beta HCG, Quant mIU/mL Urine Color Yellow Urine Appearance Cloudy Urine pH 7.0 (5-9) Ur Specific Ong 1.012 (1.010-1.030) Urine Protein Negative (Negative) Urine Ketones 1+ A (Negative) Urine Blood Negative (Negative) Urine Nitrate Negative (Negative) Urine Bilirubin Negative (Negative) Urine Urobilinogen Negative (Negative) Ur Leukocyte Esterase Negative (Negative) Urine Glucose 1+(50 mg/dl) A (Negative) Salicylates (<30) mg/dL Urine Opiates Screen None detected (None Detect) Acetaminophen mcg/mL Ur Barbiturates Screen None detected (None Detect) Ur Phencyclidine Scrn None detected (None Detect) Ur Amphetamines Screen None detected (None Detect) U Benzodiazepines Scrn None detected (None Detect) Urine Cocaine Screen None detected (None Detect) U Cannabinoids Screen None detected (None Detect) Serum Alcohol (<10) mg/dL 03/29/18 Range/Units 15:29 WBC (3.5-10.8) 10^3/ul RBC (4.00-5.40) 10^6/ul Hgb (12.0-16.0) g/dl Hct (35-47) % MCV (80-97) fL MCH (27-31) pg MCHC (31-36) g/dl RDW (10.5-15) % Plt Count (150-450) 10^3/ul MPV (7.4-10.4) um3 Neut % (Auto) (38-83) % Lymph % (Auto) (25-47) % [place] % (Auto) (0-7) % Eos % (Auto) (0-6) % Baso % (Auto) (0-2) % Absolute Neuts (auto) (1.5-7.7) 10^3/ul Absolute Lymphs (auto) (1.0-4.8) 10^3/ul Absolute Monos (auto) (0-0.8) 10^3/ul Absolute Eos (auto) (0-0.6) 10^3/ul Absolute Basos (auto) (0-0.2) 10^3/ul Absolute Nucleated RBC 10^3/ul Nucleated RBC % Sodium 130 L (135-145) mmol/L Potassium 3.3 L (3.5-5.0) mmol/L Chloride 94 L (101-111) mmol/L Carbon Dioxide 25 (22-32) mmol/L Anion Gap 11 (2-11) mmol/L BUN 8 (6-24) mg/dL Creatinine 0.65 (0.51-0.95) mg/dL Est GFR ( Amer) 120.9 (>60) Est GFR (Non-Af Amer) 100.0 (>60) BUN/Creatinine Ratio 12.3 (8-20) Glucose 113 H (70-100) mg/dL Calcium 9.3 (8.6-10.3) mg/dL Total Bilirubin 0.70 (0.2-1.0) mg/dL AST 20 (13-39) U/L ALT 20 (7-52) U/L Alkaline Phosphatase 38 (34-104) U/L Total Protein 7.2 (6.4-8.9) g/dL Albumin 4.5 (3.2-5.2) g/dL Globulin 2.7 (2-4) g/dL Albumin/Globulin Ratio 1.7 (1-3) TSH 1.43 (0.34-5.60) mcIU/mL Beta HCG, Quant < 0.60 mIU/mL Urine Color Urine Appearance Urine pH (5-9) Ur Specific Ong (1.010-1.030) Urine Protein (Negative) Urine Ketones (Negative) Urine Blood (Negative) Urine Nitrate (Negative) Urine Bilirubin (Negative) Urine Urobilinogen (Negative) Ur Leukocyte Esterase (Negative) Urine Glucose (Negative) Salicylates < 2.50 (<30) mg/dL Urine Opiates Screen (None Detect) Acetaminophen < 15 mcg/mL Ur Barbiturates Screen (None Detect) Ur Phencyclidine Scrn (None Detect) Ur Amphetamines Screen (None Detect) U Benzodiazepines Scrn (None Detect) Urine Cocaine Screen (None Detect) U Cannabinoids Screen (None Detect) Serum Alcohol < 10 (<10) mg/dL Result Diagrams: 03/29/18 15:29 03/29/18 15:29 Lab Statement: Any lab studies that have been ordered have been reviewed, and results considered in the medical decision making process. - EKG 1531 Cardiac Rate: NL - 80 bpm EKG Rhythm: Atrial Flutter EKG Interpretation: Nl IVCT, nl QTC, nl axis, discussed with Dr. Lee EKG Comparison: Other - No A flutter on prior EKG on 03/23/2018 1835 Cardiac Rate: NL - 82 bpm EKG Rhythm: Sinus Rhythm EKG Interpretation: Nl AVIVCT, nl QTC, nl axis EKG Comparison: Other - No longer in atrial flutter, changed from prior taken this date at 1531 Re-Evaluation - Re-Evaluation First Eval Re-Evaluation Time: 16:32 Comment: Still anxious. Her HR is 81 bpm, BP is 153/96. She is not having any CP. Her partner Jana is still present. Second Eval Re-Evaluation Time: 21:27 Comment: Discussed lab results. Course/Dx - Course Course Of Treatment: Medically cleared for MHE at 1921. Will prescribe her 5 days of PO potassium. Upon completion of MHE and consultaiton with Dr. Meléndez, it has been determined that the pt can be D/C with Dx of unspecified anxiety disorder with Rx for Hydroxyzine 50 mg Q6 PRN. - Differential Dx/Clinical Impression Provider Diagnosis: Atrial flutter, Hypokalemia, Hyponatremia, Palpitations, Generalized anxiety disorder - Physician Notifications Discussed Care Of Patient With: Jacob Lee Time Discussed With Above Provider: 15:42 Instructed by Provider To: Other - Cannot rule out A flutter but it is not diagnostic and rate is controlled so he is not concerned. At this time, does not need any further evaluation or troponin. Discussed care of pt with Dr. Gould at 1958 who recommended f/u with cardiology within the next month and there is no further treatment necessary at this time. Discussed care of pt with Dr. Gould again at 2104 who states that she does not believe the first EKG was A flutter and that she should follow up with her PCP. Discharge - Sign-Out/Discharge Documenting (check all that apply): Discharge/Admit/Transfer - Discharge - Discharge Plan Condition: Stable Disposition: HOME Prescriptions: hydrOXYzine HCL TAB* [Atarax TAB 50 MG *] 50 mg PO QID PRN #20 tab PRN Reason: Anxiety Potassium Chlor TAB* [Potassium Chlor TAB 20 MEQ*] 40 meq PO DAILY #5 tab.er Patient Education Materials: Heart Palpitations (ED), Hypokalemia (ED), Generalized Anxiety Disorder (ED), Anxiety (ED) Referrals: Blayne Domignuez MD [Medical Doctor] - (Within the next month. ) Hank Lopez NP [Primary Care Provider] - 2 Days Additional Instructions: We have given you a copy of your EKG's and labs today. We gave you a dose of potassium 40 MEq orally for your potassium which was slightly low at 3.3 (normal is 3.5) Your sodium was also slightly low at 130 (normal is 135) and we gave you a liter of normal saline for this. Dr. Ray has prescribed potassium that you should take for the next 5 days. Have definite follow up with ALYSE Hayes in 2-3 days. We gave you one tablet of Ativan 1mg orally at 9:30pm. This is a benzodiazepine. This should help you sleep tonight, and is fine with your cardiac and RA meds. Dr. Meléndez has also recommended that you try hydroxyzine 50mg every 6 hrs (or four times a day) as needed for anxiety. This is also fine with your cardiac and RA meds, and is not a controlled drug, and not a benzodiazepine. Return to the ER if you have any new or worsening symptoms. - Billing Disposition and Condition Condition: STABLE Disposition: Home The documentation as recorded by the Birgit barnett Rebecca accurately reflects the service I personally performed and the decisions made by , Sandra Ray MD.
[2018-03-29] MEDS ORDERED: LORazepam TAB(*) 1 MG PO ONE (21:31)
[2018-03-29 21:41] VITALS: BP 124/86
== END 2018-03-29 22:00 | disposition home or self-care (01) ==
LOC: ED 14:46
DX: F41.1 Generalized anxiety disorder (principal); I48.92 Unspecified atrial flutter; E87.6 Hypokalemia; E87.1 Hypo-osmolality and hyponatremia; M06.9 Rheumatoid arthritis, unspecified; Z79.899 Other long term (current) drug therapy; Z88.0 Allergy status to penicillin; Z88.8 Allergy status to other drugs, medicaments and biological substances
CPT/HCPCS: 36415; 80053; 80307; 80320; 80329; 81003; 84443; 84702; 85025; 93005; 96360; 96361; 99285; A9270-GY; G0480